=== PATIENT | female | born 1945 | race Caucasian/White ===

== ENCOUNTER 2019-12-27 12:56 | Outpatient (CLI) | payer MEDICARE, SELFPAY ==
[2019-12-27 13:33] LABS: Basophils Percent Auto 0.5 % (0.2-1.2); Eosinophils Absolute Auto 0.2 K/mm3 (0-0.3); Hematocrit 35.5 % (37.0-47.0); Hemoglobin 11.6 g/dL (12.0-15.0); Immature Granulocyte Absolute 0.02 K/mm3 (0.00-0.031); Immature Granulocyte Percent A 0.2 % (0-0.5); Lymphocytes Absolute Auto 3.29 K/mm3 (0.9-3.2); Lymphocytes Percent Auto 40.5 % (18.3-44.2); Mean Corpuscular HGB Conc 32.7 g/dl (32-36); Mean Corpuscular Volume 91.7 fl (80-100); Mean Platelet Volume 10.5 fl (7.4-10.4); Monocytes Absolute Auto 0.6 K/mm3 (0.1-0.6); Monocytes Percent Auto 7.6 % (2.6-8.5); Neutrophils Percent Auto 49.2 % (45.5-73.1); Platelet Count Result 289 k/mm3 (150-375); Red Blood Count 3.87 M/mm3 (4.2-5.4); Red Cell Distribution Width 13.7 % (11.5-14.5); White Blood Count 8.1 K/mm3 (4.5-10.0)
== END 2019-12-27 12:57 | disposition home or self-care (01) ==
PROVIDERS: PCP Internal Medicine; Visit Provider Internal Medicine
DX: R53.83 Other fatigue (principal)
CPT/HCPCS: 36415; 85025

== ENCOUNTER 2020-06-25 06:50 | Outpatient (CLI) | payer MEDICARE, SELFPAY ==
[2020-06-25 07:53] LABS: Add Urine Microscopic? NO; Appearance Urine Clear (Clear); Bilirubin Urine Negative (Negative); Blood Urine Negative (Negative); Color Urine Straw (Yellow); Glucose Urine UA Negative (Negative); Ketones Urine Negative (Negative); Leukocyte Esterase Ur Negative LEU/UL (Negative); Nitrate Urine Negative (Negative); Protein Urine Negative (Negative); Specific Grav Ur 1.011 (1.001-1.035); Urobilinogen Urine Negative mg/dL (<2.0)
[2020-06-25 07:56] LABS: Alanine Aminotransferase 16 U/L (4-35); Albumin Level 4.3 g/dL (3.5-5.1); Alkaline Phosphatase 54 U/L (38-126); Anion Gap 10.1 mmol/L (7-16); Aspartate Amino Transferase 24 U/L (14-36); Bilirubin,Total 0.2 mg/dL (0.2-1.3); Blood Urea Nitrogen 14 mg/dL (7-17); Carbon Dioxide 30 mmol/L (22-30); Chloride 102 mmol/L (98-107); Cholesterol 180 mg/dL (0-200); Estimated Glomerular Filt Rate > 60; Glucose 145 mg/dL (65-105); HDL Direct 82 mg/dL; Potassium 4.1 mmol/L (3.4-5.0); Sodium 138 mmol/L (137-145); Triglycerides 56 mg/dL (<150)
[2020-06-25 08:05] LABS: Hemoglobin A1C 6.2 % (<5.7)
[2020-06-25 08:06] LABS: LDL Cholesterol Direct 76 mg/dL
== END 2020-06-25 06:51 | disposition home or self-care (01) ==
PROVIDERS: PCP Internal Medicine; Referring Provider Nurse Practitioner; Visit Provider Internal Medicine
DX: E78.5 Hyperlipidemia, unspecified (principal); E11.49 Type 2 diabetes mellitus with other diabetic neurological complication; I10 Essential (primary) hypertension; R35.0 Frequency of micturition
CPT/HCPCS: 36415; 80053; 80061; 81003; 83036

== ENCOUNTER 2020-09-13 14:08 | Outpatient (CLI) | payer MEDICARE, SELFPAY ==
--- NOTE | ~2020-09-13 | MM_ITS ---
EXAMINATION: MM screening [facility] BI w christiano HISTORY: Screening mammogram TECHNIQUE: Craniocaudal and mediolateral oblique 3-D tomosynthesis images were obtained and synthetic 2-D images were generated. CAD analysis was submitted and interpreted. COMPARISON: 09/11/2019, 09/06/2018, 08/20/2017 BREAST PARENCHYMAL COMPOSITION: There are scattered areas of fibroglandular density. FINDINGS: Scattered benign-appearing calcifications are present. There is no evidence of suspicious m ass, calcification, or architectural distortion to suggest malignancy in either breast. There has bee n no suspicious interval change. IMPRESSION: 1. No mammographic evidence of malignancy. 2. Recommend routine screening mammography in one year. BI-RADS Category 2: Benign finding(s). Reviewed, dictated and finalized at location A.
--- NOTE | ~2020-09-13 | US_ITS ---
EXAMINATION: US thyroid DATE: 09/13/2020 15:03 INDICATION: Nontoxic multinodular goiter. TECHNIQUE: Multiple ultrasound images of the thyroid were obtained. COMPARISON: Ultrasound 09/07/2019 FINDINGS: The right thyroid lobe measures 4.9 x 2.1 x 1.2 cm. The left thyroid lobe measures 3.7 x 1.2 x 1.0 c m. In the right thyroid lobe, there is a 7 mm mixed cystic and solid, hypoechoic, bbddy-[id number]-binb no dule with smooth margin without echogenic foci (TI-RADS TR3). In the right thyroid lobe, there is a 5 mm solid, hypoechoic, mipet-hoef-qevu nodule with peripheral calcifications and smooth margin (TR4). In the right thyroid lobe, there is a 9 mm mixed cystic and solid, hypoechoic, tmixe-upnk-yhou nodul e smooth margins without echogenic foci (TR3). IMPRESSION: 1. Small thyroid nodules, likely not clinically significant. No follow-up is needed. Reviewed, dictated and finalized at location A. IMPRESSION: 1. Small thyroid nodules, likely not clinically significant. No follow-up is ne eded.
--- NOTE | ~2020-09-13 | US_ITS ---
EXAMINATION: US carotid duplex BI DATE: 09/13/2020 15:05 INDICATION: Occlusion and stenosis of bilateral carotid arteries. TECHNIQUE: Grayscale, color Doppler, and pulsed Doppler images of the cervical carotid arteries were obtained. The degree of vessel stenosis is placed in one of the following categories: normal, <50%, 5 0-69%, >=70% but less than near-occlusion, near-occlusion, or total occlusion. Note that percent sten osis relative to normal distal artery lumen diameter is indirectly measured from velocity measurement s as described by Camron, et al. Radiology 2003; 229:340-346. COMPARISON: Ultrasound 09/11/2019 FINDINGS: RIGHT: The right common carotid artery (CCA) peak systolic velocity (PSV) is 93 cm/s. The right internal car otid artery (ICA) PSV is 52 cm/s. The right ICA end-diastolic velocity (EDV) is 10 cm/s. The right IC A/CCA PSV ratio is 0.6. Grayscale and color Doppler images yield an estimate of <50% diameter reducti on from plaque in the ICA. There is antegrade flow in the right vertebral artery. LEFT: The left CCA PSV is 93 cm/s. The left ICA PSV is 55 cm/s. The left ICA EDV is 10 cm/s. The left ICA/C CA PSV ratio is 0.6. Grayscale and color Doppler images yield an estimate of <50% diameter reduction from plaque in the ICA. There is antegrade flow in the left vertebral artery. IMPRESSION: 1. <50% stenosis in the right internal carotid artery. 2. <50% stenosis in the left internal carotid artery. Reviewed, dictated and finalized at location A.
== END 2020-09-13 14:09 | disposition home or self-care (01) ==
PROVIDERS: PCP Internal Medicine; Visit Provider Nurse Practitioner
DX: Z12.31 Encounter for screening mammogram for malignant neoplasm of breast (principal); E04.2 Nontoxic multinodular goiter; I65.23 Occlusion and stenosis of bilateral carotid arteries
CPT/HCPCS: 76536; 77063; 77067; 93880

== ENCOUNTER 2020-10-26 15:53 | Inpatient (IN) | payer MEDICARE, SELFPAY ==
[2020-10-26] VITALS (12 sets, daily range): BP systolic 118–154; BP diastolic 39–56; PULSE 40–56; RESP 11–20; TEMP 36.6; O2SAT 96–100; BMI 28.5
--- NOTE | ~2020-10-26 | XR_ITS ---
EXAMINATION: XR chest 1V portable INDICATION: Chest pain and shortness of breath TECHNIQUE: Portable AP chest at 1743 hours COMPARISON: 03/17/2018 FINDINGS: There are minimal airspace opacities of the lung bases and right midlung zone. No pleural e ffusion or pneumothorax is identified. The cardiomediastinal silhouette is normal. Changes of right t otal shoulder arthroplasty are noted. There is partially imaged stabilization hardware in the lower c ervical spine. IMPRESSION: 1. Minimal airspace opacities of the lung bases and right midlung zone, consistent with atelectasis v ersus pneumonia. Reviewed, dictated and finalized at location A. OR NEWSPAPER IMPRESSION: 1. Minimal airspace opacities of the lung bases and right midlung zone, consist ent with atelectasis versus pneumonia.
--- NOTE | ~2020-10-26 | CT_ITS ---
EXAMINATION: CT brain wo con INDICATION: Weakness COMPARISON: None TECHNIQUE: Standard unenhanced head CT. The dose-length product (DLP) was 605.33 mGy-cm. The mA was a djusted according to patient size. Iterative reconstruction technique was employed. FINDINGS: There is no acute intraparenchymal hemorrhage. No evidence of mass lesion. No evidence of a cute infarction. There is mild periventricular and subcortical hypodensity probably related to small vessel ischemic disease. There is mild prominence of the sulci and ventricles related to cerebral atr ophy. Intracranial calcified cerebral atherosclerosis is noted. There are no extra-axial collections. There is no mass effect or midline shift. Changes in the globes are likely from ocular lens surgery. The visualized sinuses and mastoid air cells are well aerated. IMPRESSION: 1. No acute intracranial abnormality. 2. Age related findings. Reviewed, dictated and finalized at location A. TIME PARAMEDIC
--- NOTE | ~2020-10-26 | CT_ITS ---
EXAMINATION: CTA chest PE protocol DATE: 10/26/2020 18:12 INDICATION: Shortness of breath and chest pain TECHNIQUE: Computed tomography angiography (CTA) of the chest was performed with 100 mL Omnipaque-350 intravenous contrast timed to evaluate the pulmonary arteries. Coronal maximum intensity projection 3D-reconstructions were created by the technologist. The dose-length product (DLP) was 490.19 mGy-cm. Automated exposure control and iterative reconstruction technique were employed. COMPARISON: 09/27/2017 FINDINGS: The pulmonary arteries are well-opacified. No pulmonary embolism is identified. There are m inimal airspace opacities of the lower lung zones. No pleural effusion or pneumothorax is identified. Stable nodules of the right upper lobe measure up to 6 mm. Cardiomegaly is noted. There are no patho logically enlarged thoracic lymph nodes. Changes of right total shoulder arthroplasty are noted. In a ddition there are changes of anterior fusion in the lower cervical spine. The gallbladder is surgical ly absent. There is mild thoracic spondylosis IMPRESSION: 1. No pulmonary embolism. 2. Mild atelectasis. Reviewed, dictated and finalized at location A. IZATION ENGINEER
--- NOTE | ~2020-10-26 | XR_ITS ---
EXAMINATION: XR chest 1V portable DATE: 10/28/2020 13:18 INDICATION: Pacer placement. TECHNIQUE: A single frontal view of the chest was obtained. COMPARISON: Chest single view 10/26/2020, chest CT 10/26/2020, 09/27/2017 FINDINGS: There are chronic nodules in right midlung zone, likely chronic infection. No pleural effus ion or pneumothorax. Cardiomegaly is noted. There is a left chest wall pacer with leads in the right atrium and right ventricle. Surgical clips in the right upper quadrant are likely from cholecystectom y. There are changes of anterior fusion procedure in cervical spine. There is a right shoulder arthro plasty. IMPRESSION: 1. Chronic nodules in right midlung zone, likely chronic infection. 2. Cardiomegaly. Reviewed, dictated and finalized at location B. RECONDITIONER
--- NOTE | ~2020-10-26 | XR_ITS ---
EXAMINATION: XR chest 2V DATE: 10/29/2020 08:09 INDICATION: Pacer placement. TECHNIQUE: Frontal and lateral views of the chest were obtained. COMPARISON: Chest single view 10/28/2020, chest CT 10/26/2020 FINDINGS: There are nodules in right midlung zone. No pleural effusion or pneumothorax. The heart siz e is normal. There is a left chest wall pacer with leads in the right atrium and right ventricle. The re is a right shoulder arthroplasty. Surgical clips in the right upper quadrant are likely from sal cystectomy. IMPRESSION: 1. Chronic nodules in right midlung zone, likely chronic infection. Reviewed, dictated and finalized at location B. LE AND GRANITE POLISHER
--- NOTE | 2020-10-26 16:14 | ECG_ITS ---
Measurements Intervals [place] Rate: 43 P: 35 NC: 153 QRS: 21 QRSD: 98 T: 38 QT: 467 QTc: 399 Interpretive Statements SINUS RHYTHM WITH NON-CONDUCTED ATRIAL PREMATURE COMPLEXES ATRIAL AND JUNCTIONAL PREMATURE COMPLEXES INCOMPLETE RIGHT BUNDLE BRANCH BLOCK ABNORMAL ECG Electronically Signed On 10-26-2020 16:36:28 CHIROPRACTIC NEUROLOGIST by Bobby Jacques D.O.
--- NOTE | 2020-10-26 16:29 | ED.WEAKNESS ---
HPI - Weakness General Chief complaint: Weakness Stated complaint: my heart Time Seen by Provider: 10/26/20 16:29 Source: patient Mode of arrival: ambulatory Limitations: no limitations History of Present Illness HPI Narrative: Patient is a 75-year-old female with a history of hypertension, type 2 diabetes who presents for evaluation of chest pain, shortness of breath, weakness. Patient initially had presented to an urgent care for evaluation of her symptoms, thought that she may be had a possible Covid exposure causing her symptoms, patient denied any fever, rhinorrhea, congestion, loss of sense of taste or smell. Patient's chest pain has been present over the past 72 hours. No severe chest pain. No current shortness of breath. She reports shortness of breath mostly with exertion. She reports some intermittent lightheadedness, dizziness and feeling generally weak without any focal numbness or weakness. No history of stroke. Patient states she has a history of polio which severely affected her left lower extremity. No worsening gait. No syncope. Patient has been compliant with her antihypertensives. Related Data Home Medications Medication Instructions Recorded Confirmed calcium carbonate 600 mg calcium 600 mg PO DAILY 09/26/19 (1,500 mg) tablet denosumab 60 mg/mL subcutaneous 60 mg SUB-Q [id number] 09/26/19 syringe lutein 6 mg capsule 6 mg PO DAILY 09/26/19 Allergies Allergy/AdvReac Type Severity Reaction Status Date / Time acetaminophen Allergy Intermediate Nausea and Verified 10/26/20 16:47 Vomiting hydrocodone Allergy Intermediate Nausea and Verified 10/26/20 16:47 Vomiting Review of Systems Review of Systems: Narrative: CONSTITUTIONAL: Denies fever, chills, or sweats. EYES: Denies visual changes ENT: Denies rhinorrhea, congestion, sore throat, or otalgia. CARDIOVASCULAR: Reports chest pain, heart fluttering, reports mild right lower extremity edema RESPIRATORY: Denies cough, reports shortness of breath with exertion GASTROINTESTINAL: Denies abdominal pain, nausea, vomiting, or diarrhea. GENITOURINARY: Denies dysuria or hematuria. SKIN: Denies rash or itching. MUSCULOSKELETAL: Denies back pain, joint pain, or myalgia. NEUROLOGIC: Denies headache, numbness, reports feeling diffusely weak PMFSH Past Medical History Medical History (Updated 10/26/20 @ 20:31 by Cora Henriquez MD) Bilateral low back pain with right-sided sciatica Carotid stenosis, bilateral Cerebrovascular disease, unspecified Cerumen impaction Chronic left shoulder pain Chronic right shoulder pain Diabetes mellitus type 2 with neurological manifestations Encounter for screening mammogram for malignant neoplasm of breast Essential (primary) hypertension Facial pressure Gastro-esophageal reflux disease without esophagitis Headache Hormone replacement therapy (postmenopausal) Hyperlipidemia LDL goal <70 Lung nodule Nontoxic multinodular goiter Osteoporosis Polyosteoarthritis, unspecified Type 2 diabetes mellitus with hyperglycemia Family History Family History Mother Hypertension Family history of diabetes mellitus in first degree relative Family history of chronic obstructive pulmonary disease Patient's mother is Diabetes mellitus Sibling Hypertension Diabetes mellitus Father Family history of malignant neoplasm Family history of coronary artery disease Social History Social History Smoking status: Never smoker Alcohol intake: never Gender identity (if verbalized by the patient): Female Exam Narrative: Exam Narrative: GENERAL: Awake, alert, conversant HEAD: Normocephalic, atraumatic. EYES: PERRLA and EOMI. ENT: Nares clear, no rhinorrhea or epistaxis. Mucous membranes moist. NECK: Supple. CHEST: No respiratory distress, breathing even and non labored, no crackles, no wheezi
[2020-10-26 16:30] LABS: Basophils Percent Auto 0.3 % (0.2-1.2); Eosinophils Absolute Auto 0.1 K/mm3 (0-0.3); Eosinophils Percent Auto 1.3 % (0-4.4); Hematocrit 36.2 % (37.0-47.0); Hemoglobin 11.8 g/dL (12.0-15.0); Immature Granulocyte Absolute 0.03 K/mm3 (0.00-0.031); Immature Granulocyte Percent A 0.3 % (0-0.5); Lymphocytes Absolute Auto 3.21 K/mm3 (0.9-3.2); Lymphocytes Percent Auto 31.5 % (18.3-44.2); Mean Corpuscular HGB Conc 32.6 g/dl (32-36); Mean Corpuscular Hemoglobin 29.9 pg (26-34); Mean Corpuscular Volume 91.9 fl (80-100); Monocytes Absolute Auto 0.6 K/mm3 (0.1-0.6); Monocytes Percent Auto 6.1 % (2.6-8.5); Neutrophils Absolute Auto 6.2 K/mm3 (1.3-6.7); Neutrophils Percent Auto 60.5 % (45.5-73.1); Platelet Count Result 278 k/mm3 (150-375); Red Blood Count 3.94 M/mm3 (4.2-5.4); Red Cell Distribution Width 13.6 % (11.5-14.5); White Blood Count 10.2 K/mm3 (4.5-10.0)
[2020-10-26 16:41] LABS: Prothrombin Time 13.5 Seconds (11.1-14.7)
[2020-10-26 16:42] LABS: Partial Thromboplastin Time 27.5 SECONDS (22.3-36.8)
[2020-10-26 16:47] LABS: Alanine Aminotransferase 19 U/L (4-35); Albumin Level 4.2 g/dL (3.5-5.1); Alkaline Phosphatase 65 U/L (38-126); Anion Gap 8 mmol/L (8-16); Aspartate Amino Transferase 25 U/L (14-36); Bilirubin,Total 0.5 mg/dL (0.2-1.3); Blood Urea Nitrogen 11 mg/dL (7-17); Calcium 9.8 mg/dL (8.4-10.2); Carbon Dioxide 27 mmol/L (22-30); Chloride 105 mmol/L (98-107); Estimated Glomerular Filt Rate > 60; Glucose 151 mg/dL (65-105); Sodium 140 mmol/L (137-145)
[2020-10-26 16:58] LABS: Troponin I < 0.012 ng/mL (0.000-0.034)
[2020-10-26 17:25] LABS: D Dimer 0.53 ug/mL (<0.48)
[2020-10-26 17:40] LABS: NT Pro B Type Natriuretic Pept 1480 PG/ML (5-100)
[2020-10-26 20:20] LABS: Troponin I < 0.012 ng/mL (0.000-0.034)
--- NOTE | 2020-10-26 22:05 | ADMGEN ---
This patient, Linh Mc, was admitted to [facility]. Patient/family oriented to hospital policies and general routines including ID bracelet, bed and alarms, visiting hours, pain management, procedures, bathroom and other care routines, personal items, smoking policy, room service/diet, and visiting hours. Information on how to activate the Rapid Response Team has been discussed. Patient/Family are encouraged to report perceived risks to care and to ask questions if they do not understand what they are told or what they should do.
--- NOTE | 2020-10-26 22:25 | PM.IMHP ---
H&P: HPI History of Present Illness Date/Time: 10/26/20 22:25 Chief complaint: symptomatic bradycardia Narrative: This is a pleasant 75 year old Caucsian diabetic female with known HTN presented to the hospital after she went to Urgent care today to get tested for COVID-19. She has had 3 days of intermittent sporadic chest pain and believed that she might have COVID-19 as she also had associated diarrhea and generalized weakness. She denies any fever, chills, shortness of breath, abdominal pain, dysuria, hematuria, or rectal bleeding. She denies any focal neurological symptoms or passing out. She was tested for COVID-19 at the urgent care today and was negative. She has no previous history of CAD+ and has never had a stress test. In the ER tonight the patient was evaluated and she was found to have a sustained heart rate in the 30s and low 40s. She is not on a beta carrie. Chest CTA was negative for acute pulmonary embolism. EKG demonstrated a sinus bradycardia with atrial and junctional premature complexes. Cardiology was consulted by ER provider and we have been asked to admit the patient to the hospital and they will evalute her. On my encounter with her she is asymptomatic. Review of Systems Review of Systems: All systems reviewed & are unremarkable except as noted in HPI and below PMFSH Past Medical History Medical History Bilateral low back pain with right-sided sciatica Carotid stenosis, bilateral Cerebrovascular disease, unspecified Cerumen impaction Chronic left shoulder pain Chronic right shoulder pain Diabetes mellitus type 2 with neurological manifestations Encounter for screening mammogram for malignant neoplasm of breast Essential (primary) hypertension Facial pressure Gastro-esophageal reflux disease without esophagitis Headache Hormone replacement therapy (postmenopausal) Hyperlipidemia LDL goal <70 Lung nodule Nontoxic multinodular goiter Osteoporosis Polyosteoarthritis, unspecified Type 2 diabetes mellitus with hyperglycemia Family History Family History Mother Hypertension Family history of diabetes mellitus in first degree relative Family history of chronic obstructive pulmonary disease Patient's mother is Diabetes mellitus Sibling Hypertension Diabetes mellitus Father Family history of malignant neoplasm Family history of coronary artery disease Social History Social History Smoking status: Never smoker Alcohol intake: never Substance use: never Substance use type: does not use Gender identity (if verbalized by the patient): Female Spiritual care concerns: No Meds Home Medications and Allergies Home Medications Medication Instructions Recorded Confirmed Type calcium carbonate 600 mg calcium 1,200 mg PO DAILY 09/26/19 10/26/20 History (1,500 mg) tablet lutein 6 mg capsule 6 mg PO DAILY 09/26/19 10/26/20 History tramadol 50 mg tablet 50 mg PO Q8H PRN #90 tablet 10/30/19 10/26/20 Rx sitagliptin 50 mg tablet 50 mg PO DAILY #30 tablet 08/23/20 10/26/20 Rx amlodipine 10 mg PO HS 10/26/20 10/26/20 History esomeprazole magnesium [Nexium] 40 mg PO DAILY 10/26/20 10/26/20 History estradiol 1 patch TRANSDERMAL 2XW 10/26/20 10/26/20 History lifitegrast [Xiidra] 1 drp OPHTHALMIC (EYE) Q12H 10/26/20 10/26/20 History losartan 100 mg PO DAILY 10/26/20 10/26/20 History metformin 2,000 mg PO BID 10/26/20 10/26/20 History Allergies Allergy/AdvReac Type Severity Reaction Status Date / Time acetaminophen Allergy Intermediate Nausea and Verified 10/26/20 16:47 Vomiting hydrocodone Allergy Intermediate Nausea and Verified 10/26/20 16:47 Vomiting Vital Signs Vital Signs - 24 hr 10/26/20 16:14 10/26/20 16:34 10/26/20 16:45 Temperature 36.6 C Pulse Rate 56 L 45 L 46 L Respiratory Rate 16 18 20 Bl
[2020-10-26 22:30] LABS: Troponin I < 0.012 ng/mL (0.000-0.034)
--- NOTE | 2020-10-26 23:38 | PHAR ---
PHARMACY VERIFIED HOME MED: *USE FROM HOME* Lifitegrast [Xiidra] 5 % Dropperette INSTILL 1 DROP IN EACH EYE EVERY 12 HOURS
[2020-10-27] VITALS (15 sets, daily range): BP systolic 104–156; BP diastolic 31–56; PULSE 36–51; RESP 12–18; TEMP 36.1–37.1; O2SAT 95–100
--- NOTE | 2020-10-27 | ECHO_ITS ---
Patient Info Name: Linh Mc Age: 75 years : 1945 Gender: Female Ht: 57 in Wt: 131 lbs BSA: 1.57 m2 HR: 42 bpm BP: 139 / 56 mmHg Heart Rhythm: Sinus Rhythm, Bradycardia Technical Quality: Good Exam Date: 10/27/2020 10:29 AM [facility] Patient Status: Inpatient Admit Date: 10/26/2020 Staff Ordering Physician: Baljeet Alvarez MD Side Boss: Rhiannon Jones RDCS Attending Provider: Lukas Steward MD Referring Physician: Kim GOLDSMITH; Exam Type: CA echo doppler color flow Study Info Indications - CHEST PAIN Complete two-dimensional, color flow and Doppler transthoracic echocardiogram is performed. Summary 1. Complete two-dimensional, color flow and Doppler transthoracic echocardiogram is performed. 2. Left ventricular chamber size, wall thickness, systolic are normal with no regional wall motion abnormalities with an estimated ejection fraction of 65-70%. Grade 2 diastolic dysfunction is present. 3. Right ventricular chamber dimension is mildly enlarged with normal systolic function. 4. Left atrial chamber dimension is moderately enlarged. 5. Right atrial chamber dimension is mildly enlarged. 6. There is mild mitral valve regurgitation. 7. There is mild tricuspid valve regurgitation. 8. Moderate pulmonary hypertension, estimated pulmonary arterial systolic pressure is 64 mmHg. 9. Sinus bradycardia. Left Ventricle Left ventricular chamber dimension is normal. Left ventricular systolic function is normal, estimated at 65-70%. There is no increased left ventricular wall thickness. Left ventricular septal wall motion is normal. The left ventricular diastolic function is grade II diastolic dysfunction. Left ventricular chamber size, wall thickness, systolic are normal with no regional wall motion abnormalities with an estimated ejection fraction of 65-70%. Grade 2 diastolic dysfunction is present. Right Ventricle Right ventricular chamber dimension is mildly enlarged with normal systolic function. Right ventricular systolic function is normal. Left Atria Left atrial chamber dimension is moderately enlarged. Right Atria Right atrial chamber dimension is mildly enlarged. Aortic Valve The aortic valve is trileaflet. There is mild aortic valve sclerosis. There is no aortic valve stenosis. There is no aortic valve regurgitation. Pulmonic Valve The pulmonic valve is normal. There is no pulmonic valve stenosis. There is no pulmonic regurgitation. Mitral Valve The mitral valve has normal leaflets. There is no mitral valve stenosis. There is mild mitral valve regurgitation. Tricuspid Valve The tricuspid valve leaflets are normal. There is no significant tricuspid valve stenosis. There is mild tricuspid valve regurgitation. Moderate pulmonary hypertension, estimated pulmonary arterial systolic pressure is 64 mmHg. Pericardium/Pleural The pericardium appears normal. There is no pericardial effusion. Inferior Vena Cava Normal inferior vena cava with >50% collapse upon inspiration consistent with Empty right atrial pressure, 10 mmHg. Aorta The aortic root size at the sinus of Valsalva is normal. The prox ascending aorta size is normal. Left Ventricular Outflow Tract Name Value Normal
--- NOTE | 2020-10-27 08:55 | PC.NURSE ---
DR. PHILLIPS HERE TO SEE PT IN CONSULTATION FOR CARDIOLOGY. ECHO ORDERED. DISCUSSED NEED FOR PPM. PT. UNSURE AT THIS TIME WHETHER SHE WANTS TO PROCEED. WILL CONTINUE TO MONITOR.
--- NOTE | 2020-10-27 09:22 | PM.CNCAR ---
Assessment and Plan Additional Plan This is a 75-year-old lady presenting with a variety of mostly noncardiac symptoms. Regarding her AV block and bradycardia she does have some MARQUEZ with no other reason to have that so that could certainly be a symptom of the bradycardia. Fortunately she has not had any history of syncope. She does report some symptoms of feeling more short of breath when she lies down flat and so the possibility of LV dysfunction is of some concern. Previous to this she was a very active lady who exercise regularly as mentioned above. My recommendation was to obtain an echocardiogram/Doppler today and then to consider device implantation to be indicated. The patient is not this agreeable with this but indicates she is not prepared to consent for device implantation today or during this hospitalization. She wishes to have the echocardiogram done and then go home and discuss this with her and let me know her decision in the future. Since she is not having syncope this is not an unreasonable decision. I will leave further recommendations as appropriate after I review her ultrasound results later today. Baljeet Alvarez MD [facility] History of Present Illness History of Present Illness Consult date/time: Date of service: 10/27/20 09:22 Reason For Visit: symptomatic bradycardia Narrative: This is a 75-year-old lady who I am seeing at the request of the hospitalist this morning because of a Colten arrhythmias. Patient has no previous history of significant cardiac problems other than she was told by a previous physician she had a minor cardiac valve insufficiency that did not require any further treatment. She went to [facility] yesterday with a variety of complaints but the principal reason for going there was to get COVID tested. She was concerned that she might have been exposed to the aragon virus in wished to have testing done. She was tested and was negative. While she was there she was reporting some symptoms of some mid epigastric abdominal pain off and on for a couple of weeks or so she also has some symptoms of weakness and exertional fatigue that started something like several months ago. She does not have any complaints of chest pain she does not have any complaints of syncope or near-syncope. She has generally been a fairly active lady most of her adult life and has exercise regularly for fitness but recently has had to curtail most of that because of the pandemic and also because she has some arthritic problems including back and arthritic pain. Once again she has never had a symptom of syncope or near-syncope. In the urgent care center was noted that she was bradycardic she was sent to the emergency room. Her electrocardiogram there showed sinus rhythm with atrial bigeminy with nonconducted APCs resulting in a heart rate in the 30s. She was therefore admitted to the hospital and is on telemetry. Interestingly on telemetry she has a variety of arrhythmias including as I mentioned above a lot of nonconducted APCs sometimes in a bigeminal pattern she also has some examples of higher grade AV node dysfunction with sinus rhythm with nonconducted P waves and in some a escape beats there was 1 rhythm strip but short time ago this morning where there were 2 escape beats consecutively. Had a long discussion with the patient about the fact that she appears to have AV node dysfunction including some examples of high-grade AV block and fortunately has not yet had a syncopal event. She is not taking any medications that would affect AV node physiology. For hypertension she takes amlodipine and losartan. The patient is otherwise active lives at home with her sadly and tragically her son who was at a gentleman in his 50s committed suicide recently and she is under extreme stress and breathing that loss. He was not and did not have children. Review of Systems Constitutional: Constitutional: Reports fa
--- NOTE | 2020-10-27 09:50 | PC.NURSE ---
PT. STATES AFTER TALKING W/ ON PHONE WOULD LIKE TO PROCEED WITH PPM INSERTION WHILE HERE PT. DR. PHILLIPS NOTIFIED. WILL EVALUATE SCHEDULE.
--- NOTE | 2020-10-27 10:25 | PC.NURSE ---
ECHOCARDIOGRAM IN PROGRESS AT BEDSIDE.
[2020-10-27 10:32] LABS: Glucose Point of Care 140 (65-105)
--- NOTE | 2020-10-27 12:30 | PC.NURSE ---
DR. PHILLIPS UNABLE TO PLACE PPM TODAY. DR. QUARLES IN TO SEE PT. BEDSIDE TO EVALUATE FOR PPM. SHE CAN PLACE PPM TOMORROW MORNING 10/28/2020.
[2020-10-27] MEDS: LOSARTAN POTASSIUM 100 MG TABLET PO (13:08)
[2020-10-27] MEDS: PANTOPRAZOLE 40 MG TABLET PO (13:08)
[2020-10-27 13:20] LABS: Glucose Point of Care 128 (65-105)
--- NOTE | 2020-10-27 15:45 | PC.NURSE ---
PT. MOVED FROM OIL WELL PUMPER 4 TO OIL WELL PUMPER 3 TO BETTER ACCOMODATE BATHROOM NEEDS. ADMITTING NOTIFIED.
--- NOTE | 2020-10-27 16:45 | PM.IMPN ---
Progress Note: A&P Assessment and Plan (1) Chest pain: Qualifiers: Chest pain type: unspecified Qualified Code(s): R07.9 - Chest pain, unspecified Code(s): R07.9 - Chest pain, unspecified Status: Acute Assessment and Plan: Patient with bradycardia most likely the etiology of her chest pain from demand ischemia. Patient already on PPI so doubt GERD. PM being planned. Appreciate Cardiology input. (2) Bradycardia: Code(s): R00.1 - Bradycardia, unspecified Status: Acute Assessment and Plan: Patient with sinus bradycardia. TSH normal. As above. Appreciate Cardiology input. (3) Normocytic anemia: Code(s): D64.9 - Anemia, unspecified Status: Acute Assessment and Plan: Hgb 11.8 on admission. This is unchanged from December so suspect more of a chronic anemia. No evidence of acute blood loss. Monitor H&H. Check B12 and iron studies. (4) Essential (primary) hypertension: Code(s): I10 - Essential (primary) hypertension Status: Chronic Assessment and Plan: Patient's blood pressure was reviewed on 10/27 Blood pressure elevated at times. Will continue current medications with losartan. Resume Norvasc once PM in place. (5) Diabetes mellitus type 2 with neurological manifestations: Code(s): E11.49 - Type 2 diabetes mellitus with other diabetic neurological complication Status: Chronic Assessment and Plan: A1c 6.2 in June. The patient's blood glucose was reviewed on 10/27 Glucose remains well controlled. Continue AccuCheks covering with sliding scale. Hypoglycemia protocol available as needed. Continue current medications with metformin. (6) Pulmonary hypertension: Code(s): I27.20 - Pulmonary hypertension, unspecified Status: Acute Assessment and Plan: Echo showing moderate pulmonary hypertension with estimated pulmonary arterial systolic pressure of 64 mmHg. No hx of CHRISTIANA. She states she was tested when at [place] and was negative 2-3 years ago. Check apnea link. (7) IBS (irritable bowel syndrome): Code(s): K58.9 - Irritable bowel syndrome without diarrhea Status: Acute Assessment and Plan: Patient having liquid stools today. Discussed the benefits of increasing fiber in her diet. Check for celiac disease (8) DVT prophylaxis: Code(s): Z29.9 - Encounter for prophylactic measures, unspecified Status: Acute Assessment and Plan: SCDs given plans for PM in the morning. Subjective Date/time seen: 10/27/20 16:45 Interval history: Date of service 10/27 75yo female with DM, HTN and hx of polio here for chest pain and found to have bradycardia. She had 2 large diarrheal stools earlier today. She has IBS and her symptoms have worsened over the past year. No melana or hematochezia. She had a colonoscopy in April which was essentailly normal. She has this chest panchito that is almost constant worse with activity and lying flat. No radiation to the pain. It is associated with SOB. Not pleuritic. No n/v. Exam Narrative: Exam Narrative: AF 98.7 152/50 39 12 96% ra Gen - NARD lying semirecumbent in bed Chest - CTA bilaterally, nml RR CV - bradycardic Abd - Soft, NT/ND, Positive BS Ext - No pedal edema; RLE>>LLE in size Neuro - Alert and oriented. Nonfocal exam. Psych - Nml mood and affect Skin - Warm and dry Objective Data Vital Signs Vital Signs: Vital Signs - 24 hr 10/26/20 16:46 10/26/20 17:00 10/26/20 17:01 Temperature Pulse Rate 43 L 41 L 42 L Respiratory Rate 18 11 L 15 Blood Pressure 154/49 H 137/50 L Pulse Oximetry 10/26/20 19:44 10/26/20 21:22 10/26/20 21:30 Temperature Pulse Rate 41 L 40 L 41 L Respiratory Rate 18 18 14 Blood Pressure 148/39 H 118/40 L 140/51 L Pulse Oximetry 96 99 97 10/26/20 21:47 10/26/20 22:00 10/26/20 23:59 Temperature 98 F Pulse Rate 48 L 40 L 42 L Re
[2020-10-27] MEDS: metFORMIN HCL 500 MG TABLET 1000 MG PO (18:25)
[2020-10-27 18:30] LABS: Glucose Point of Care 163 (65-105)
[2020-10-27 21:26] LABS: Glucose Point of Care 124 (65-105)
[2020-10-28] VITALS (20 sets, daily range): BP systolic 115–150; BP diastolic 56–94; PULSE 43–81; RESP 13–18; TEMP 36.2–37; O2SAT 95–100
[2020-10-28 05:46] LABS: Basophils Percent Auto 0.4 % (0.2-1.2); Eosinophils Absolute Auto 0.2 K/mm3 (0-0.3); Eosinophils Percent Auto 2.1 % (0-4.4); Hematocrit 33.7 % (37.0-47.0); Hemoglobin 11.1 g/dL (12.0-15.0); Immature Granulocyte Absolute 0.02 K/mm3 (0.00-0.031); Immature Granulocyte Percent A 0.3 % (0-0.5); Lymphocytes Absolute Auto 2.98 K/mm3 (0.9-3.2); Lymphocytes Percent Auto 37.5 % (18.3-44.2); Mean Corpuscular HGB Conc 32.9 g/dl (32-36); Mean Corpuscular Hemoglobin 30.2 pg (26-34); Mean Corpuscular Volume 91.6 fl (80-100); Monocytes Absolute Auto 0.6 K/mm3 (0.1-0.6); Monocytes Percent Auto 7.1 % (2.6-8.5); Neutrophils Absolute Auto 4.2 K/mm3 (1.3-6.7); Neutrophils Percent Auto 52.6 % (45.5-73.1); Platelet Count Result 289 k/mm3 (150-375); Red Blood Count 3.68 M/mm3 (4.2-5.4); Red Cell Distribution Width 13.6 % (11.5-14.5); White Blood Count 7.9 K/mm3 (4.5-10.0)
[2020-10-28 06:05] LABS: Anion Gap 5 mmol/L (8-16); Blood Urea Nitrogen 16 mg/dL (7-17); Calcium 9.5 mg/dL (8.4-10.2); Carbon Dioxide 27 mmol/L (22-30); Chloride 106 mmol/L (98-107); Estimated Glomerular Filt Rate > 60; Glucose 128 mg/dL (65-105); Potassium 4.1 mmol/L (3.4-5.0); Sodium 138 mmol/L (137-145)
[2020-10-28 06:24] LABS: Iron 31 ug/dL (37-170)
[2020-10-28 06:34] LABS: Percent Iron Saturation 8 % (20-50)
[2020-10-28 07:02] LABS: Ferritin 7.01 ng/mL (11.1-264)
[2020-10-28 07:10] LABS: Folic Acid 10.7 ng/mL (2.76->20)
[2020-10-28 08:03] LABS: Glucose Point of Care 134 (65-105)
[2020-10-28] MEDS: LOSARTAN POTASSIUM 100 MG TABLET PO (08:52)
[2020-10-28] MEDS: PANTOPRAZOLE 40 MG TABLET PO (08:52)
--- NOTE | 2020-10-28 09:08 | PC.NURSE ---
0900-pt not given diabetic meds as she is NPO for procedure.
--- NOTE | 2020-10-28 09:16 | PC.NURSE ---
Preop wash applied to the left chest and shoulder. Procedure explained and questions answered.
--- NOTE | 2020-10-28 10:17 | WPDHPUPDATE1 ---
History and Physical Update Update Date/Time: 10/28/20 10:17 History and Physical has been reviewed, including an updated exam of the patient. There are NO changes in the patient's condition. Risks, benefits, and alternatives have been discussed and questions answered. Patient agrees to proceed with procedure.
--- NOTE | 2020-10-28 10:18 | WPDMODSED ---
Moderate Sedation Note-Pt Data Patient Data Diagnosis: Symptomatic bradycardia, av node dysfunction and AV block Present Complaint: Dyspnea on exertion, unable to walk around the park anymore, fatigue. Procedure to be performed/Plan: Conscious sedation Venogram Iinsertion of a permanent dual-chamber pacemaker Allergies Allergy/AdvReac Type Severity Reaction Status Date / Time acetaminophen Allergy Intermediate Nausea and Verified 10/26/20 16:47 Vomiting hydrocodone Allergy Intermediate Nausea and Verified 10/26/20 16:47 Vomiting Home Medications Medication Instructions Recorded Confirmed Type calcium carbonate 600 mg calcium 1,200 mg PO DAILY 09/26/19 10/26/20 History (1,500 mg) tablet lutein 6 mg capsule 6 mg PO DAILY 09/26/19 10/26/20 History tramadol 50 mg tablet 50 mg PO Q8H PRN #90 tablet 10/30/19 10/26/20 Rx sitagliptin 50 mg tablet 50 mg PO DAILY #30 tablet 08/23/20 10/26/20 Rx amlodipine 10 mg PO HS 10/26/20 10/26/20 History esomeprazole magnesium [Nexium] 40 mg PO DAILY 10/26/20 10/26/20 History estradiol 1 patch TRANSDERMAL 2XW 10/26/20 10/26/20 History lifitegrast [Xiidra] 1 drp OPHTHALMIC (EYE) Q12H 10/26/20 10/26/20 History losartan 100 mg PO DAILY 10/26/20 10/26/20 History metformin 1,000 mg PO BID 10/26/20 10/27/20 History Current Medications: Active Medications Dextrose (Dextrose 50% 25 Gm/50 Ml Syringe) 12.5 gm IV PUSH PRN PRN; Protocol PRN Reason: Hypoglycemia Glucagon (Glucagon For Inj 1 Mg Vial) 1 mg IM PRN PRN; Protocol PRN Reason: Hypoglycemia Glucose (Glucose Oral Gel 15 Gm Of Glucse In 37.5 Gm Tube) 15 gm PO PRN PRN; Protocol PRN Reason: Hypoglycemia Dextrose (Dextrose 5% 1,000 Ml) 1,000 mls @ 100 mls/hr IVPB PRN PRN; Protocol PRN Reason: Hypoglycemia Cefazolin Sodium (Ancef 1 Gm/D5w 50 Ml Pm) 1 gm in 50 mls @ 100 mls/hr IVPB ONCE ONE Stop: 10/28/20 10:29 Insulin Aspart (Insulin Aspart (*Bkc) 100 Units/Ml) 3 - 6 units SUB-Q TIDWM HORACE; Protocol Last Admin: 10/28/20 08:07 Dose: Not Given Documented by: Losartan Potassium (Losartan Potassium 100 Mg Tablet) 100 mg PO DAILY [facility] Last Admin: 10/28/20 08:52 Dose: 100 mg Documented by: Metformin HCl (Metformin Hcl 500 Mg Tablet) 1,000 mg PO BIDWM [facility] Last Admin: 10/28/20 09:07 Dose: Not Given Documented by: Pantoprazole Sodium (Pantoprazole 40 Mg Tablet) 40 mg PO QAM [facility] Last Admin: 10/28/20 08:52 Dose: 40 mg Documented by: Sitagliptin Phosphate (Sitagliptin 50 Mg Tablet) 50 mg PO DAILY [facility] Last Admin: 10/28/20 09:08 Dose: Not Given Documented by: Sedation/Anesthesia: No previous sedation/anesthesia problems (including family history). [facility] Past Medical History Medical History (Updated 10/27/20 @ 18:47 by Lukas Steward MD) Bilateral low back pain with right-sided sciatica Carotid stenosis, bilateral Cerebrovascular disease, unspecified Cerumen impaction Chronic left shoulder pain Chronic right shoulder pain Diabetes mellitus type 2 with neurological manifestations Encounter for screening mammogram for malignant neoplasm of breast Essential (primary) hypertension Facial pressure Gastro-esophageal reflux disease without esophagitis Headache Hormone replacement therapy (postmenopausal) Hyperlipidemia LDL goal <70 IBS (irritable bowel syndrome) Lung nodule Nontoxic multinodular goiter Osteoporosis Polyosteoarthritis, unspecified Type 2 diabetes mellitus with hyperglycemia Family History Family History Mother Hypertension Family history of diabetes mellitus in first degree relative Family history of chronic obstructive pulmonary disease Patient's mother is Diabetes mellitus Sibling Hypertension Diabetes mellitus Father Family history of malignant neoplasm Family history of coronary artery disease Social History Social History Smoking status: Never smoker Alcohol in
--- NOTE | 2020-10-28 11:06 | PC.NURSE ---
1010-pt taken to [facility] for PPM insertion
--- NOTE | 2020-10-28 12:16 | ECG_ITS ---
Measurements Intervals [place] Rate: 60 P: 264 [place]: 163 QRS: 67 QRSD: 96 T: 28 QT: 418 QTc: 419 Interpretive Statements ELECTRONIC ATRIAL PACEMAKER INCOMPLETE RIGHT BUNDLE BRANCH BLOCK BORDERLINE ECG Electronically Signed On 10-28-2020 19:48:53 FAT PRESSROOM WORKER by Bobby Jacques D.O.
--- NOTE | 2020-10-28 12:21 | PM.OP ---
Procedure Note - Brief Procedure Note - Brief Date of procedure: 10/28/20 Pre-op diagnosis: symptomatic bradycardia With sinus node dysfunction and high degree AV block Post-op diagnosis: same Procedure performed: conscious sedation venogram Implantation of a permanent dual-chamber Biotronik pacemaker Description of procedure: uneventful implantation of a permanent dual-chamber pacemaker Anesthesia: local ( with conscious sedation) Surgeon: Kerline Ty MD
--- NOTE | 2020-10-28 12:22 | PM.PROC ---
Procedure Note - Detailed Date of procedure: 10/28/20 Pre-op diagnosis: symptomatic bradycardia symptomatic AV node dysfunction and intermittent high degree/3rd degree AV block Post-op diagnosis: same Procedure performed: Conscious sedation Venogram Implantation of a permanent dual-chamber pacemaker Description of procedure: PROCEDURE PERFORMED: Conscious sedation Venogram Placement of a permanent dual-chamber pacemaker SITE: Left prepectoral area MEDICATIONS GIVEN IN NOZZLE CEMENT SPRAYER HELPER: Ancef 1 gram IV piggyback CONSCIOUS SEDATION: Assessment: The patient has no history of anesthesia problems. The patient's oropharynx is clear. The patient was deemed to be a good candidate for conscious sedation. The patient had continuous hemodynamic monitoring during the procedure. Start time: 1049 Completion time: 12 12 Total conscious sedation time: 93 minutes Medications: Versed 4 mg fentanyl 125 mcg IV push Trained observer: Tahir Guevara RN Outcome: The patient tolerated the procedure well with no complications. PROCEDURE: After informed consent , the patient was brought to the dock or pier laborer and the left prepectoral area was prepped and draped in usual fashion . The patient received preop antibiotic and conscious sedation . The left prepectoral area was anesthetized with lidocaine . A venogram was performed showing the course of the left subclavian vein,which was patent. Next a skin incision was made and carried down to the prepectoral fascia. Hemostasis was obtained using electrocautery . The pacer pocket was formed. The left subclavian vein was easily accessed with the micropuncture technique, and a J-tip guide wire was passed into the superior vena cava under fluoroscopic guidance . The needle was withdrawn . A 2nd wire was introduced in an identical fashion. A 6 Malagasy Malagasy safety sheath was passed over the lateral wire, the wire withdrawn, and the right ventricular lead was passed into the inferior vena cava under fluoroscopic guidance . The lead was then prolapsed through the tricuspid valve and advanced into the right ventricular apex. When suitable sensing and pacing thresholds were obtained, it was screwed into place. No extra cardiac stimulation was obtained using 10 volts. The sheath was withdrawn. Next, another 6 Malagasy safety sheath was passed over the more medial wire, the wire withdrawn, and the right atrial lead was passed into the inferior vena cava under fluoroscopic guidance. Right atrial lead was then pulled back to the level of the right atrium and manipulated into the right atrial appendage . When suitable sensing and pacing thresholds were obtained , it was screwed into place . No extra cardiac stimulation was obtained using 10 volts. The sheath was withdrawn. The right ventricular lead was then repostitioned due to an elevation of the threshold. Both leads were secured to the prepectoral fascia using 2-0 silk over their respective sleeves. The pocket was cleansed with antibiotic containing solution . The pulse generator was introduced into the operative field, and both leads were secured into the generator . A gentle tug showed the leads were securely fastened. The device was introduced into the pocket. A stay stitch was applied with 2 0 silk suture.The subcutaneous tissues were closed in a double layer fashion with interrupted sutures, using 2-0 Vicryl suture , and the skin was closed in a continuous fashion using 4-0 Vicryl suture in a continuous fashion. The area was cleansed, and an Aquacel dressing was applied . The patient tolerated the procedure well with no complications. PACEMAKER INFORMATION: Pulse generator: Biotronik Edora 8DR-T, serial number [id number] Right atrial lead: Biotronik Solia S45, serial number [id number] Right ventricular lead: Biotronik Solia S 53, serial number [id number] MEASURED DATA: Right atrial: P wave sensing 2.2 mV, impedance 565 Ohms, threshold 0.6 volts
[2020-10-28 13:08] LABS: Glucose Point of Care 150 (65-105)
[2020-10-28] MEDS: traMADol HCL (*CRX) 50 MG TABLET 100 MG PO ×2 (13:50→21:29)
--- NOTE | 2020-10-28 13:52 | PHAR ---
HOME MEDICATION VERIFIED BY PHARMACY: 3 MORE DROPERETTES OF FRANCISCO
[2020-10-28 16:11] LABS: Glucose Point of Care 272 (65-105)
[2020-10-28] MEDS: INSULIN ASPART (*BKC) 100 UNITS/ML SUB-Q (16:53)
[2020-10-28] MEDS: metFORMIN HCL 500 MG TABLET 1000 MG PO (16:53)
--- NOTE | 2020-10-28 17:24 | PM.IMPN ---
Progress Note: A&P Assessment and Plan (1) Chest pain: Qualifiers: Chest pain type: unspecified Qualified Code(s): R07.9 - Chest pain, unspecified Code(s): R07.9 - Chest pain, unspecified Status: Acute Assessment and Plan: Patient with bradycardia most likely the etiology of her chest pain from demand ischemia. Patient already on PPI so doubt GERD. PM placed today and her symptoms are already improving. She has tolerated the procedure well. Appreciate Cardiology input. (2) Bradycardia: Code(s): R00.1 - Bradycardia, unspecified Status: Acute Assessment and Plan: Patient with sinus bradycardia. TSH normal. As above. Appreciate Cardiology input. (3) Normocytic anemia: Code(s): D64.9 - Anemia, unspecified Status: Acute Assessment and Plan: Hgb 11.8 on admission. This is unchanged from December so suspect more of a chronic anemia. No evidence of acute blood loss. Iron studies consistent with iron deficiency. She has had a recent colonoscopy. Related to celiac? Replace iron. (4) Essential (primary) hypertension: Code(s): I10 - Essential (primary) hypertension Status: Chronic Assessment and Plan: Patient's blood pressure was reviewed on 10/28 Blood pressure elevated at times. Continue current medications with losartan and add back Norvasc at 5mg dose. (5) Diabetes mellitus type 2 with neurological manifestations: Code(s): E11.49 - Type 2 diabetes mellitus with other diabetic neurological complication Status: Chronic Assessment and Plan: A1c 6.2 in June. The patient's blood glucose was reviewed on 10/28 Glucose remains mostly well controlled. Continue AccuCheks covering with sliding scale. Hypoglycemia protocol available as needed. Continue current medications with metformin and Januvia (6) Pulmonary hypertension: Code(s): I27.20 - Pulmonary hypertension, unspecified Status: Acute Assessment and Plan: Echo showing moderate pulmonary hypertension with estimated pulmonary arterial systolic pressure of 64 mmHg. No hx of CHRISTIANA. She states she was tested when at [place] and was negative 2-3 years ago. Apnea link here showing AHI 16 and RI 20.6. Will need more formal testing as outpatient. (7) IBS (irritable bowel syndrome): Code(s): K58.9 - Irritable bowel syndrome without diarrhea Status: Acute Assessment and Plan: Patient had liquid stools yesterday. We had discussed the benefits of increasing fiber in her diet. (8) DVT prophylaxis: Code(s): Z29.9 - Encounter for prophylactic measures, unspecified Status: Acute Assessment and Plan: SCDs Subjective Date/time seen: 10/28/20 17:24 Interval history: Date of service 10/28 75yo female with DM, HTN and hx of polio here for chest pain and found to have bradycardia. Now s/p PM placed today. Patietn back from her procedure. She feels well. Eating okay. Pain controlled. SOB and CP better since PM placed. Exam Narrative: Exam Narrative: AF 97.2 123/59 77 14 95% ra Gen - NARD Chest - CTA bilaterally, nml RR; Left upper chest dressing is c/d/i CV - RRR S1/S2 Abd - Soft, NT/ND, Positive BS Ext - No pedal edema; RLE>>LLE in size Psych - Nml mood and affect Skin - Warm and dry Objective Data Vital Signs Vital Signs: Vital Signs - 24 hr 10/27/20 18:00 10/27/20 19:45 10/27/20 20:00 Temperature 97.3 F L Pulse Rate 47 L 49 L 51 L Respiratory Rate 16 Blood Pressure 127/53 L Pulse Oximetry 97 10/27/20 22:00 10/27/20 23:10 10/28/20 00:00 Temperature 97.6 F Pulse Rate 43 L 48 L 44 L Respiratory Rate 18 Blood Pressure 145/54 H Pulse Oximetry 96 10/28/20 02:00 10/28/20 04:00 10/28/20 05:20 Temperature 97.2 F L Pulse Rate 51 L 53 L 43 L Respiratory Rate 14 Blood Pressure 148/56 H Pulse Oximetry 99 10/28/20 06:00
[2020-10-28] MEDS: FERROUS SULFATE 324 MG TABLET PO (18:43)
[2020-10-28 19:12] LABS: Glucose Point of Care 232 (65-105)
[2020-10-28] MEDS: amLODIPine BESYLATE 5 MG TABLET PO (21:23)
[2020-10-28 22:50] LABS: Glucose Point of Care 135 (65-105)
[2020-10-29] VITALS (11 sets, daily range): BP systolic 130–150; BP diastolic 57–74; PULSE 60–70; RESP 14–18; TEMP 36.1–37.1; O2SAT 98–100
[2020-10-29] MEDS: traMADol HCL (*CRX) 50 MG TABLET 100 MG PO (03:13)
[2020-10-29] MEDS: PANTOPRAZOLE 40 MG TABLET PO (07:49)
[2020-10-29 07:55] LABS: Glucose Point of Care 148 (65-105)
[2020-10-29] MEDS: FERROUS SULFATE 324 MG TABLET PO (08:19)
[2020-10-29] MEDS: LOSARTAN POTASSIUM 100 MG TABLET PO (08:20)
[2020-10-29] MEDS: metFORMIN HCL 500 MG TABLET 1000 MG PO (08:20)
--- NOTE | 2020-10-29 09:41 | PM.PNCARD ---
Progress Note: A&P Assessment and Plan (1) Symptomatic bradycardia: Code(s): R00.1 - Bradycardia, unspecified Status: Acute Assessment and Plan: AV node dysfunction and intermittent high degree/3rd degree AV block. 10/27/2020: Left ventricular chamber size, wall thickness, systolic function are normal with no regional wall motion abnormality estimated ejection fraction 65-70%. Grade 2 diastolic dysfunction. Right ventricular chamber dimension is mildly enlarged with normal systolic function. Left atrial chamber dimension is moderately enlarged. Right atrial chamber dimension is mildly enlarged. Mild mitral regurgitation. Mild tricuspid regurgitation moderate pulmonary hypertension with estimated arterial systolic pressure 64 mm Hg. (2) S/P placement of cardiac pacemaker: Code(s): Z95.0 - Presence of cardiac pacemaker Status: Acute Assessment and Plan: Status post Biotronik dual-chamber pacemaker placed 10/28/[address] Ty. Pacemaker is functioning normally as programmed. Sensing and lead impedances are within normal limits. No changes made in her device today. Chest x-ray: No pneumothorax. Reviewed activity restrictions and follow-up. Questions were answered. She verbalized understanding of all instructions especially the instruction to avoid falls. Additional Plan OK to discharge from cardiac standpoint. See discharge instructions for follow-up. Plan discussed with Dr. Alvarez 0950 10/29/2020 Subjective Date/time seen: 10/29/20 09:41 Interval history: Follow-up for: Symptomatic bradycardia, symptomatic AV node dysfunction and intermittent high degree block status post Biotronik dual-chamber pacemaker 10/28/2020 Date of service: 10/29/2020 Subjective: Only tired. Denied chest discomfort, shortness of breath, lightheadedness or palpitations. Minimal discomfort at the pacemaker insertion site. Review of Systems Constitutional: Constitutional: Reports fatigue Eyes: Eyes: Denies blind spots and Denies blurry vision ENT: Reports Normal hearing present and Denies dizziness Cardiovascular: Cardiovascular: Denies chest pain, Denies syncope, Denies lightheadedness and Denies dyspnea Respiratory: Respiratory: Denies cough, Denies dyspnea on exertion and Denies wheezing Gastrointestinal: Gastrointestinal: Denies diarrhea, Denies nausea and Denies vomiting Genitourinary: Genitourinary: Denies hematuria Musculoskeletal: Musculoskeletal: Reports abnormal gait (Due to polio ) and Reports arthralgias Integumentary/Breasts: Skin/Breast: Denies erythema, Denies rash and Denies unusual bruising Neurologic: Reports abnormal gait (Due to polio) Psychiatric: Psychiatric: Denies anxiety and Denies depression Endocrine: Endocrine: Reports fatigue Hematologic/Lymphatic: Hematologic/Lymphatic: Denies easy bleeding and Denies easy bruising Allergic/Immunologic: Allergic/Immunologic: Denies throat swelling, Denies tongue swelling and Denies wheezing Exam Const: General: comfortable and no acute distress HENMT: Mouth: Yes moist mucous membranes Eyes: Sclera: sclerae normal Pupils: Equal, round and reactive pupils present Neck: Neck: no JVD Chest: Other: Left subclavian Aquacel dressing intact. No swelling or drainage. Minimal tenderness on palpation. Resp: Effort & Inspection: normal respiratory effort Auscultation: clear to auscultation bilaterally Cardio: Rate: regular rate Rhythm: regular rhythm Other: Soft grade 2/6 systolic murmur at the does not appear to radiate from the left sternal border GI: GI Palp: Yes Soft to palpation Auscultation: normal bowel sounds Skin: General skin exam: normal color and no rashes or lesions noted Neuro: General: patient oriented x3 Cranial nerves: Yes Equal, round and reactive pupils present Cognition (Neuro): normal cognition Speech: normal spee
[2020-10-29 12:19] LABS: Glucose Point of Care 132 (65-105)
--- NOTE | 2020-10-29 14:07 | PM.DS ---
DS: Admitting Diagnosis Admitting Diagnosis Admitting Diagnosis: symptomatic bradycardia DS: Discharge Diagnosis Discharge Diagnosis (1) Chest pain: Qualifiers: Chest pain type: unspecified Qualified Code(s): R07.9 - Chest pain, unspecified Code(s): R07.9 - Chest pain, unspecified Status: Acute Assessment and Plan: Patient with bradycardia most likely the etiology of her chest pain from demand ischemia. Patient already on PPI so doubt GERD. PM placed 12/10 and her symptoms of chest pain resolved. She tolerated the procedure well. Appreciate Cardiology input. (2) Bradycardia: Code(s): R00.1 - Bradycardia, unspecified Status: Acute Assessment and Plan: Patient with sinus bradycardia. TSH normal. As above. (3) Normocytic anemia: Code(s): D64.9 - Anemia, unspecified Status: Acute Assessment and Plan: Hgb 11.8 on admission. This is unchanged from December so suspect more of a chronic anemia. No evidence of acute blood loss. Iron studies consistent with iron deficiency. She has had a recent colonoscopy. Related to celiac? Iron replacement ordered. (4) Essential (primary) hypertension: Code(s): I10 - Essential (primary) hypertension Status: Chronic Assessment and Plan: Patient's blood pressure was monitored. Blood pressure elevated at times. We resumed her home meds. (5) Diabetes mellitus type 2 with neurological manifestations: Code(s): E11.49 - Type 2 diabetes mellitus with other diabetic neurological complication Status: Chronic Assessment and Plan: A1c 6.2 in June. The patient's blood glucose was monitored with AccuCheks covering with sliding scale. Hypoglycemia protocol was available as needed. We continued current medications with metformin and Januvia (6) Pulmonary hypertension: Code(s): I27.20 - Pulmonary hypertension, unspecified Status: Acute Assessment and Plan: Echo showing moderate pulmonary hypertension with estimated pulmonary arterial systolic pressure of 64 mmHg. No hx of CHRISTIANA. She states she was tested when at [place] and was negative 2-3 years ago. Apnea link here showing AHI 16 and RI 20.6. Will need more formal testing as outpatient. (7) IBS (irritable bowel syndrome): Code(s): K58.9 - Irritable bowel syndrome without diarrhea Status: Acute Assessment and Plan: Patient had liquid stools one day. We discussed the benefits of increasing fiber in her diet. DS: Summary Hospital Course Reason for hospitalization: 75yo female with DM, HTN and hx of polio here for chest pain and found to have bradycardia. Please see H&P for details. Hospital Course: Please see above for details of hospital course. Status at Discharge Cognitive/behavioral status at discharge: PATIENT IS STABLE FOR DISCHARGE Time Spent with Patient Time attestation: Total time spent providing and/or coordinating discharge services: 38 minutes Time spent: Greater than 30 minutes Exam Narrative: Exam Narrative: AF 98.0 130/57 60 18 100% ra Gen - NARD Chest - CTA bilaterally, nml RR. Left upper chest dressing clean, intact and dry CV - RRR S1/S2 Abd - Soft, NT/ND, Positive BS Ext - No pedal edema Psych - Nml mood and affect Skin - Warm and dry DS: Data Data Completed and Pending Labs on day of discharge: Labs from last 24 hours 10/29/20 10/29/20 10/28/20 12:16 07:47 22:46 POC Capillary Glucose 132 H 148 H 135 H 10/28/20 10/28/20 19:10 16:09 POC Capillary Glucose 232 H 272 H Discharge Plan Discharge Attending physician on discharge: Lukas Steward Consulting providers: Baljeet Alvarez Discharging Clinician: Lukas Steward Anticipated Discharge Date/Time: 10/29/20 14:14 Patient Disposition: Home, Self-Care Activity: other - see discharge instructions Diet: heart healthy Wound Care In
[2020-11-02 12:11] LABS: Gliadin AB, IgG 3 Units (<20); Reticulin IgA Negative (Negative); TTG IGA AB 1 U/mL (<4)
--- NOTE | 2020-11-02 15:03 | PC.NURSE ---
Celiac panel is negative
== END 2020-10-29 15:15 | disposition home or self-care (01) | DRG 243 ==
LOC: ANHED 20:31 → ANHCPC 10-27 02:57
PROVIDERS: Internal Medicine Cardiovascular Disease; Admitting Provider Family Medicine; Emergency Provider Emergency Medicine; PCP Internal Medicine; Visit Provider Internal Medicine
PROC: 0JH606Z Insertion of Pacemaker, Dual Chamber into Chest Subcutaneous Tissue and Fascia, Open Approach (ICD-10-PCS; CPT 33208; principal; 2020-10-28 10:30)
DX: I44.2 Atrioventricular block, complete (principal); I24.8 Other forms of acute ischemic heart disease; I27.20 Pulmonary hypertension, unspecified; D64.9 Anemia, unspecified; E11.49 Type 2 diabetes mellitus with other diabetic neurological complication; I10 Essential (primary) hypertension; K21.9 Gastro-esophageal reflux disease without esophagitis; K58.9 Irritable bowel syndrome, unspecified; Z86.12 Personal history of poliomyelitis; Z79.84 Long term (current) use of oral hypoglycemic drugs; Z79.899 Other long term (current) drug therapy
CPT/HCPCS: 33208; 36415; 70450; 71045; 71046; 71275; 80048; 80053; 82607; 82728; 82746; 83516; 83540; 83550; 83880; 84443; 84484; 85025; 85380; 85610; 85730; 86255; 93005; 93306; 99285; A9270; C1779; C1785; G0378; J0690; J1815; J2250; J3010; J7040; Q9967

== ENCOUNTER 2020-10-30 13:33 | Observation (INO) | payer MEDICARE, SELFPAY ==
[2020-10-30] VITALS (11 sets, daily range): BP systolic 99–125; BP diastolic 55–89; PULSE 60–82; RESP 17–22; TEMP 36.6–37.3; O2SAT 97–100; BMI 28.0
--- NOTE | ~2020-10-30 | XR_ITS ---
EXAMINATION: XR chest 2V DATE: 10/30/2020 14:49 INDICATION: Chest pain, recent pacemaker insertion TECHNIQUE: Frontal and lateral views of the chest are obtained COMPARISON: 10/29/2020 FINDINGS: The lungs are free of acute opacities. There is no pleural effusion or pneumothorax. The he art size is normal. A dual-lead cardiac pacemaker of the left chest wall ends with leads in expected locations. Changes of right total shoulder arthroplasty are noted. There are also partially imaged ch anges of fusion procedure in the lower cervical spine. Surgical clips in the right upper quadrant are likely from prior cholecystectomy. IMPRESSION: 1. No acute cardiopulmonary abnormality. Reviewed, dictated and finalized at location A. MIDWIFE
--- NOTE | ~2020-10-30 | US_ITS ---
EXAMINATION: US venous doppler [facility] DATE: 10/31/2020 08:48 INDICATION: Lower limb swelling. Pulmonary embolism. TECHNIQUE: Grayscale ultrasound images without and with compression and Doppler ultrasound images of the bilateral lower extremity veins were obtained. COMPARISON: None. FINDINGS: The visualized portions of right common femoral vein, profunda (deep) femoral vein, femoral vein, pop liteal vein, posterior tibial veins, peroneal veins, gastrocnemius vein and greater saphenous vein ou tflow are patent. The visualized portions of left common femoral vein, profunda femoral vein, femoral vein, popliteal v ein, posterior tibial veins, peroneal veins, gastrocnemius vein and greater saphenous vein outflow ar e patent. IMPRESSION: 1. No deep venous thrombosis in either lower limb. Reviewed, dictated and finalized at location A. CAL ACCOUNTING CLERK
--- NOTE | ~2020-10-30 | CT_ITS ---
EXAMINATION: CTA chest PE protocol DATE: 10/30/2020 16:18 INDICATION: Shortness of breath TECHNIQUE: Computed tomography angiography (CTA) of the chest was performed with 100 mL Omnipaque-350 intravenous contrast timed to evaluate the pulmonary arteries. Coronal maximum intensity projection 3D-reconstructions were created by the technologist. The dose-length product (DLP) was 453.46 mGy-cm. Automated exposure control and iterative reconstruction technique were employed. COMPARISON: 10/26/2020 FINDINGS: The pulmonary as are well-opacified. There is an embolism in a subsegmental branch of the r ight lower lobe. There is no pleural effusion or pneumothorax. Stable nodules of the right upper lobe measure up to 6 mm. There is stable cardiomegaly. No pathologically enlarged thoracic lymph nodes ar e identified. There has been interval insertion of a cardiac pacemaker into the left anterior chest w all which ends with its leads in the right atrium and right ventricle. A small amount of fluid near t he left subclavian vein is likely postprocedural in nature. The gallbladder is surgically absent. The re is mild thoracic spondylosis. Changes of right total shoulder arthroplasty and anterior lower cerv ical spine fusion are noted. IMPRESSION: 1. Acute pulmonary embolus in a subsegmental branch of the right lower lobe. 2. Interval pacemaker insertion. These findings were discussed with Dr. Todd Amaya MD in the Emergency Department at 1634 hours on 10/30/2020. Reviewed, dictated and finalized at location A. IVING CLERK IMPRESSION: 1. Acute pulmonary embolus in a subsegmental branch of the right lower lobe. 2. Interval pacemaker insertion. These findings were discussed with Dr. Todd Amaya MD in the Emergency Depar tment at 1634 hours on 10/30/2020.
--- NOTE | 2020-10-30 14:06 | ECG_ITS ---
Measurements Intervals [place] Rate: 20 P: 35 [place]: 159 QRS: 14 QRSD: 94 T: 24 QT: 345 QTc: 199 Interpretive Statements ELECTRONIC ATRIAL PACEMAKER ST-T WAVE ABNORMALITY IN ANTEROLATERAL LEADS- CONSIDER ISCHEMIA BASELINE ARTIFACT- I, II, III, AVR, AVL, AVF, V1 ABNORMAL ECG Electronically Signed On 10-30-2020 14:10:01 ADMINISTRATIVE SERVICES ASSISTANT by Bobby Jacques D.O.
[2020-10-30] MEDS: BELLADONNA ALK/PHENOB ELIX 10 ML, MAG HYDROX/ALUMINUM HYD/SIMETH 30 ML, LIDOCAINE HCL 2... PO (14:23)
[2020-10-30 14:46] LABS: Basophils Percent Auto 0.3 % (0.2-1.2); Eosinophils Absolute Auto 0.1 K/mm3 (0-0.3); Eosinophils Percent Auto 1.1 % (0-4.4); Hematocrit 34.3 % (37.0-47.0); Hemoglobin 11.2 g/dL (12.0-15.0); Immature Granulocyte Absolute 0.07 K/mm3 (0.00-0.031); Immature Granulocyte Percent A 0.6 % (0-0.5); Lymphocytes Absolute Auto 2.49 K/mm3 (0.9-3.2); Lymphocytes Percent Auto 19.7 % (18.3-44.2); Mean Corpuscular HGB Conc 32.7 g/dl (32-36); Mean Corpuscular Hemoglobin 30.1 pg (26-34); Mean Corpuscular Volume 92.2 fl (80-100); Mean Platelet Volume 10.2 fl (7.4-10.4); Monocytes Percent Auto 7.8 % (2.6-8.5); Neutrophils Absolute Auto 8.9 K/mm3 (1.3-6.7); Neutrophils Percent Auto 70.5 % (45.5-73.1); Platelet Count Result 279 k/mm3 (150-375); Red Blood Count 3.72 M/mm3 (4.2-5.4); Red Cell Distribution Width 13.4 % (11.5-14.5); White Blood Count 12.6 K/mm3 (4.5-10.0)
[2020-10-30 14:57] LABS: D Dimer 1.31 ug/mL (<0.48)
[2020-10-30 15:12] LABS: Anion Gap -1 mmol/L (8-16); Blood Urea Nitrogen 13 mg/dL (7-17); Calcium 9.8 mg/dL (8.4-10.2); Carbon Dioxide 29 mmol/L (22-30); Chloride 99 mmol/L (98-107); Estimated Glomerular Filt Rate > 60; Glucose 140 mg/dL (65-105); Potassium 4.1 mmol/L (3.4-5.0); Sodium 127 mmol/L (137-145)
--- NOTE | 2020-10-30 15:53 | ED.GENADULT ---
HPI - General Adult General Chief complaint: Unspecified Stated complaint: CP, swelling to left hand Time Seen by Provider: 10/30/20 13:40 Source: patient and family Mode of arrival: ambulatory Limitations: no limitations History of Present Illness HPI narrative: 75-year-old female She was discharged yesterday after having a pacemaker placed She originally presented to urgent care because she was afraid she might have Covid, but was found to be bradycardic, sent to the ED, and eventually did wind up getting a pacer placed She said that just before she was discharged she had a small painful area on her left wrist close to an IV site. This area has become larger, more tender, more swollen over the subsequent 36 hours She also notes she has had some right anterior chest pains which are not very severe and are not accompanied by any significant shortness of breath or fever or a cough, but do worsen with deep inspiration Her notes that her anxiety level seems to have increased as well Related Data Home Medications Medication Instructions Recorded Confirmed calcium carbonate 600 mg calcium 1,200 mg PO DAILY 09/26/19 10/26/20 (1,500 mg) tablet lutein 6 mg capsule 6 mg PO DAILY 09/26/19 10/26/20 Xiidra 1 drp OPHTHALMIC (EYE) Q12H 10/26/20 10/26/20 amlodipine 10 mg PO HS 10/26/20 10/26/20 esomeprazole magnesium [Nexium] 40 mg PO DAILY 10/26/20 10/26/20 estradiol 1 patch TRANSDERMAL 2XW 10/26/20 10/26/20 losartan 100 mg PO DAILY 10/26/20 10/26/20 metformin 1,000 mg PO BID 10/26/20 10/27/20 Allergies Allergy/AdvReac Type Severity Reaction Status Date / Time acetaminophen Allergy Intermediate Nausea and Verified 10/26/20 16:47 Vomiting hydrocodone Allergy Intermediate Nausea and Verified 10/26/20 16:47 Vomiting aspirin AdvReac Gastrointestinal Verified 10/30/20 13:47 Upset Review of Systems Review of Systems: All systems reviewed & are unremarkable except as noted in HPI and below Constitutional: Constitutional: Denies chills, Reports fatigue, Denies fever(s), Denies headache(s) and Denies weakness Eyes: Eyes: Reports no additional eye complaints and Denies change in vision ENT: Denies headache(s), Denies epistaxis, Denies nasal congestion and Denies sore throat Cardiovascular: Cardiovascular: Reports chest pain, Denies leg edema, Denies palpitations and Denies dyspnea Respiratory: Respiratory: Denies cough, Denies dyspnea and Denies wheezing Gastrointestinal: Gastrointestinal: Denies abdominal pain, Denies diarrhea, Denies nausea and Denies vomiting Genitourinary: Genitourinary: Denies hematuria, Denies urinary frequency and Denies dysuria Musculoskeletal: Musculoskeletal: Denies deformity, Reports arthralgias, Reports joint swelling, Reports limited range of motion, Denies muscle weakness and Denies numbness Comments: (thumb) Integumentary/Breasts: Skin/Breast: Denies rash and Denies wounds Neurologic: Denies headache(s) and Denies focal weakness Psychiatric: Psychiatric: Reports no additional psychiatric complaints Endocrine: Endocrine: Denies fatigue and Denies palpitations Hematologic/Lymphatic: Hematologic/Lymphatic: Denies easy bleeding and Denies easy bruising Allergic/Immunologic: Allergic/Immunologic: Denies wheezing PMFSH Past Medical History Medical History (Updated 10/30/20 @ 17:08 by Todd Amaya MD) Bilateral low back pain with right-sided sciatica Carotid stenosis, bilateral Cerebrovascular disease, unspecified Cerumen impaction Chronic left shoulder pain Chronic right shoulder pain Diabetes mellitus type 2 with neurological manifestations Encounter for screening mammogram for malignant neoplasm of breast Essential (primary) hypertension Facial pressure Gastro-esophageal reflux disease without esophagitis Headache Hormone replacement therapy (postmenopausal) Hyperlipidemia LDL goal <70 IBS (irritable bowel syndrome) Lung nodule Nontoxic multinodular goiter Oste
[2020-10-30 16:44] LABS: Anion Gap 6 mmol/L (8-16); Blood Urea Nitrogen 12 mg/dL (7-17); Calcium 9.5 mg/dL (8.4-10.2); Carbon Dioxide 26 mmol/L (22-30); Chloride 100 mmol/L (98-107); Estimated Glomerular Filt Rate > 60; Glucose 144 mg/dL (65-105); Potassium 3.9 mmol/L (3.4-5.0); Sodium 132 mmol/L (137-145)
[2020-10-30] MEDS: LACTATED RINGERS 1,000 ML 30 ML IV CONT (17:18)
[2020-10-30] MEDS: ENOXAPARIN 80 MG/0.8 ML SYRINGE SUB-Q (17:19)
--- NOTE | 2020-10-30 18:33 | PC.NURSE ---
This patient, Linh Mc, was admitted to Medical Room 252-01. Patient/family oriented to hospital policies and general routines including ID bracelet, bed and alarms, visiting hours, pain management, procedures, bathroom and other care routines, personal items, smoking policy, room service/diet, and visiting hours. Information on how to activate the Rapid Response Team has been discussed. Patient/Family are encouraged to report perceived risks to care and to ask questions if they do not understand what they are told or what they should do.
[2020-10-30] MEDS: traMADol HCL (*CRX) 25 MG TABLET PO (20:49)
--- NOTE | 2020-10-30 20:55 | PM.IMHP ---
H&P: HPI History of Present Illness Date/Time: 10/30/20 20:55 Chief complaint: PE, Phlebitis, hyponatremia Narrative: Linh Mc is a 75 year old female with past medical history diabetes, hypertension, history of polio presents to the ED with complaints of chest pain. Patient was recently admitted 10/27 to 10/29. She was originally concern for COVID-19 went to Urgent Care, was found to be bradycardic, was admitted here and had pacemaker placed with no complications discharge 10/29. The thought was her chest pain was from demand ischemia leading to pacemaker indication. Patient had mechanical VTE prophylaxis due to pacemaker placement. Patient is to have limited activity until pacemaker check which was scheduled for 11/03/2020. Patient states she has been using estrogen supplement for 20 years the estradiol transdermal patch. Patient denies any recent travels. She denies any trauma to her leg. She did have significant surgical history with pacemaker placement. Patient has history of polio which affects her left lower extremity. She states her left lower extremity muscles have atrophied because of polio and that her right lower extremity is always larger in size. She does not endorse any increase in swelling or pain in the lower extremities. Denies any family history of blood clots that she knows of. Patient is never smoker. In the ED: Chest x-ray negative. Patient has sharp chest pain and CTA showed pulmonary embolism subsegmental branch right lower lobe. Patient also has some phlebitis in her left hand from IV site. Patient was admitted for observation for acute PE. Review of Systems Review of Systems: Narrative: Constitutional: No Fever, No Chills, No Night Sweats, No Fatigue, No Malaise ENT/Mouth: No Hearing Changes, No Ear Pain, No Nasal Congestion, No Sinus Pain, No Hoarseness, No sore throat, No Rhinorrhea, No Swallowing Difficulty Eyes: No Eye Pain, No Redness, No Vision Changes Cardiovascular: No Palpitations, No Dyspnea on Exertion, No Orthopnea, No Claudication, No Edema. Right-sided chest pain nonexertional. Respiratory: No Cough, No Sputum, No Wheezing, No Shortness of Breath Gastrointestinal: No Nausea, No Vomiting, No Diarrhea, No Constipation, No Abdominal Pain, No Heartburn, No Hematochezia, No Melena Genitourinary: No Dysuria, No Urinary Frequency, No Hematuria, No Urinary Incontinence, No Urgency Musculoskeletal: No Arthralgias, No Myalgias, No Joint Swelling, No Joint Stiffness, No Back Pain Skin: No Skin Lesions, No Pruritis, No Hair Changes Neuro: No Weakness, No Numbness, No Paresthesias, No Loss of Consciousness, No Syncope, No Dizziness, No Headache Psych: No Anxiety/Panic, No Depression, No Insomnia Heme: No Bruising, No Bleeding Lymph: No Adenopathy Endocrine: No Polyuria, No Polydipsia, No Temperature Intolerance [facility] Past Medical History Medical History Bilateral low back pain with right-sided sciatica Carotid stenosis, bilateral Cerebrovascular disease, unspecified Cerumen impaction Chronic left shoulder pain Chronic right shoulder pain Diabetes mellitus type 2 with neurological manifestations Encounter for screening mammogram for malignant neoplasm of breast Essential (primary) hypertension Facial pressure Gastro-esophageal reflux disease without esophagitis Headache Hormone replacement therapy (postmenopausal) Hyperlipidemia LDL goal <70 IBS (irritable bowel syndrome) Lung nodule Nontoxic multinodular goiter Osteoporosis Polyosteoarthritis, unspecified Type 2 diabetes mellitus with hyperglycemia Surgical History Surgical History (Updated 10/30/20 @ 21:55 by Tavon Mas DO) S/P placement of cardiac pacemaker placed 10/28/2020 Family History Family History Mother Hypertension Family history of diabetes mellitus in first degree relative Family histo
[2020-10-30] MEDS: amLODIPine BESYLATE 5 MG TABLET 10 MG PO (23:02)
[2020-10-31] VITALS: PULSE 60
[2020-10-31 00:54] LABS: Glucose Point of Care 197 (65-105)
[2020-10-31 04:00] VITALS: PULSE 63
[2020-10-31] MEDS: ENOXAPARIN 60 MG/0.6 ML SYRINGE SUB-Q (05:59)
[2020-10-31 06:00] VITALS: BP 128/48; PULSE 62; RESP 18; TEMP 36.5; O2SAT 99
[2020-10-31] MEDS: PANTOPRAZOLE 40 MG TABLET PO (06:06)
[2020-10-31 06:36] LABS: Basophils Percent Auto 0.3 % (0.2-1.2); Eosinophils Absolute Auto 0.2 K/mm3 (0-0.3); Eosinophils Percent Auto 2.9 % (0-4.4); Hematocrit 30.5 % (37.0-47.0); Hemoglobin 9.8 g/dL (12.0-15.0); Immature Granulocyte Absolute 0.03 K/mm3 (0.00-0.031); Immature Granulocyte Percent A 0.4 % (0-0.5); Immature Platelet Fraction Pct 4.5 % (0.9-11.2); Lymphocytes Absolute Auto 2.25 K/mm3 (0.9-3.2); Mean Corpuscular HGB Conc 32.1 g/dl (32-36); Mean Corpuscular Hemoglobin 28.7 pg (26-34); Mean Corpuscular Volume 89.2 fl (80-100); Monocytes Absolute Auto 0.6 K/mm3 (0.1-0.6); Monocytes Percent Auto 9.2 % (2.6-8.5); Neutrophils Absolute Auto 3.7 K/mm3 (1.3-6.7); Neutrophils Percent Auto 54.2 % (45.5-73.1); Platelet Count Result 241 k/mm3 (150-375); Red Blood Count 3.42 M/mm3 (4.2-5.4); Red Cell Distribution Width 13.3 % (11.5-14.5); White Blood Count 6.8 K/mm3 (4.5-10.0)
[2020-10-31 06:47] LABS: Anion Gap 6 mmol/L (8-16); Blood Urea Nitrogen 9 mg/dL (7-17); Calcium 9.1 mg/dL (8.4-10.2); Carbon Dioxide 28 mmol/L (22-30); Chloride 103 mmol/L (98-107); Estimated Glomerular Filt Rate > 60; Glucose 114 mg/dL (65-105); Magnesium 1.7 mg/dL (1.6-2.3); Potassium 3.6 mmol/L (3.4-5.0); Sodium 137 mmol/L (137-145)
[2020-10-31 08:00] VITALS: PULSE 67
[2020-10-31] MEDS: traMADol HCL (*CRX) 25 MG TABLET PO (08:58)
[2020-10-31] MEDS: LOSARTAN POTASSIUM 100 MG TABLET PO (08:59)
[2020-10-31] MEDS: cycloSPORINE 0.4 ML OPHTH SOLUTION 1 DROP EACH EYE (08:59)
[2020-10-31] MEDS: CALCIUM CARBONATE (OSCAL) 500 MG TABLET 1000 MG PO (08:59)
[2020-10-31] MEDS: INSULIN ASPART (*BKC) 100 UNITS/ML SUB-Q (09:09)
[2020-10-31 09:19] LABS: Glucose Point of Care 282 (65-105)
[2020-10-31 12:00] VITALS: PULSE 66
[2020-10-31 12:11] LABS: Glucose Point of Care 69 (65-105)
--- NOTE | 2020-10-31 13:39 | PM.DS ---
DS: Admitting Diagnosis Admitting Diagnosis Admitting Diagnosis: PE, Phlebitis, hyponatremia DS: Discharge Diagnosis Discharge Diagnosis (1) Pulmonary embolism: Code(s): I26.99 - Other pulmonary embolism without acute cor pulmonale Status: Acute Assessment and Plan: Patient returns to ED for complaints of left hand pain and chest 'soreness'. She had a CTA chest showing an acute pulmonary embolism subsegmental branch of right lower lobe. CTA on 10/26/20 was negative. She was on SCDs here due to PM placement. Most likely provoked PE with use of estrogen patch as well as recent surgery. No history of PE, patient will need 6 months of anticoagulation for first time acute provoked PE and stop estrogen supplement. She remained on room air. Patient was started on full-dose Lovenox and was switched to DOAC the next morning. Stop E2. Discussed risks/benefits of anticoagulation. All questions answered. (2) Hyponatremia: Code(s): E87.1 - Hypo-osmolality and hyponatremia Status: Acute Assessment and Plan: Na 127 on admission. She appears to be euvolemic but states she feels dry. On 10/28 sodium was 138. On recheck, Na 132. Gentle hydration 30 cc LR overnight and recheck Na 137. (3) Phlebitis: Code(s): I80.9 - Phlebitis and thrombophlebitis of unspecified site Status: Acute Assessment and Plan: Left hand pain and edema consistent with recent IV. No evidence of infection. Supportive care provided. Patient states pain better today. (4) S/P placement of cardiac pacemaker: Code(s): Z95.0 - Presence of cardiac pacemaker Status: Acute Assessment and Plan: Patient with chest pain and bradycardia. Pacemaker placed 10/28/[address] Kerline Ty. Dressing to be removed 11/03/2020 with Pacemaker check 11/24/[address] Alvarez follow-up 02/24/2021 DS: Summary Hospital Course Reason for hospitalization: 75yo female here for chest pain and left hand pain and found to have small subsegmental PE. Please see H&P for details. Hospital Course: Please see above for details of hospital course Status at Discharge Cognitive/behavioral status at discharge: PATIENT IS STABLE FOR DISCHARGE Time Spent with Patient Time attestation: Total time spent providing and/or coordinating discharge services:35 minutes Time spent: Greater than 30 minutes Exam Narrative: Exam Narrative: AF 97.7 128/48 66 18 99% ra Gen - NARD Chest - CTA bilateral; left upper chest dressing clean and dry CV - RRR S1/S2 Abd -soft, NT, ND, +BS Ext - no edema (R>L in size) Neuro - AOx4 Psych - mildly anxious DS: Data Data Completed and Pending Labs on day of discharge: Labs from last 24 hours 10/31/20 10/31/20 10/31/20 12:02 09:04 05:42 WBC RBC Hgb Hct MCV MCH MCHC RDW Plt Count MPV Immature Gran % (Auto) Neut % (Auto) Lymph % (Auto) Stearns % (Auto) Eos % (Auto) Baso % (Auto) Lymph # (Auto) Stearns # (Auto) Eos # (Auto) Baso # (Auto) Abs Immat Gran (auto) Absolute Neuts (auto) Absolute Nucleated RBC Nucleated RBC % % Immature Plt Fraction D-Dimer Sodium 137 Potassium 3.6 Chloride 103 Carbon Dioxide 28 Anion Gap 6 L BUN 9 Creatinine 0.60 L Estim Creat Clear Calc Not Reportable Estimated GFR > 60 Glucose 114 H POC Capillary Glucose 69 282 H Calcium 9.1 Magnesium 1.7 Troponin I 10/31/20 10/30/20 10/30/20 05:42 23:15 16:26 WBC 6.8 RBC 3.42 L Hgb 9.8 L Hct 30.5 L MCV 89.2 MCH 28.7 MCHC 32.1 RDW 13.3 Plt Count 241 MPV 11.0 H Immature Gran % (Auto) 0.4 Neut % (Auto) 54.2 Lymph % (Auto) 33.0 Stearns % (Auto) 9.2 H Eos % (Auto) 2.9 Baso % (Auto) 0.3 Lymph # (Auto) 2.25 Stearns # (Auto) 0.6 Eos # (Auto) 0.2 Baso # (Auto) 0.0 Abs Immat Gran (auto) 0.03 Absolute Neuts (
[2020-10-31 13:52] VITALS: BP 127/54; PULSE 84; RESP 18; TEMP 37; O2SAT 100
[2020-10-31 14:00] LABS: Glucose Point of Care 148 (65-105)
== END 2020-10-31 14:59 | disposition home or self-care (01) ==
LOC: ANHED 17:09 → ANH2MED 17:45
PROVIDERS: Student in an Organized Health Care Education/Training Program; Admitting Provider Family Medicine; Emergency Provider Emergency Medicine; PCP Internal Medicine; Visit Provider Internal Medicine
DX: I26.99 Other pulmonary embolism without acute cor pulmonale (principal); I80.9 Phlebitis and thrombophlebitis of unspecified site; E87.1 Hypo-osmolality and hyponatremia; R07.9 Chest pain, unspecified; E11.49 Type 2 diabetes mellitus with other diabetic neurological complication; I10 Essential (primary) hypertension; K21.9 Gastro-esophageal reflux disease without esophagitis; E78.5 Hyperlipidemia, unspecified; E04.2 Nontoxic multinodular goiter; K58.9 Irritable bowel syndrome, unspecified; M81.0 Age-related osteoporosis without current pathological fracture; I67.9 Cerebrovascular disease, unspecified; Z79.84 Long term (current) use of oral hypoglycemic drugs; Z95.0 Presence of cardiac pacemaker; Z86.12 Personal history of poliomyelitis
CPT/HCPCS: 36415; 71046; 71275; 80048; 83735; 84484; 85025; 85055; 85380; 93005; 93970; 96372; 99285; A9270; G0378; J1650; J1815; J7120; Q9967

== ENCOUNTER 2020-11-23 15:19 | Outpatient (CLI) | payer MEDICARE, SELFPAY ==
[2020-11-23 16:00] LABS: Hematocrit 38.5 % (37.0-47.0); Hemoglobin 12.5 g/dL (12.0-15.0)
[2020-11-23 16:09] LABS: Anion Gap 8 mmol/L (8-16); Blood Urea Nitrogen 13 mg/dL (7-17); Calcium 10.4 mg/dL (8.4-10.2); Carbon Dioxide 25 mmol/L (22-30); Chloride 103 mmol/L (98-107); Estimated Glomerular Filt Rate > 60; Glucose 95 mg/dL (65-105); Potassium 3.9 mmol/L (3.4-5.0); Sodium 136 mmol/L (137-145)
== END 2020-11-23 15:20 | disposition home or self-care (01) ==
LOC: ANHLAB 15:21
PROVIDERS: PCP Internal Medicine; Visit Provider Internal Medicine
DX: D64.9 Anemia, unspecified (principal); E87.1 Hypo-osmolality and hyponatremia; I10 Essential (primary) hypertension
CPT/HCPCS: 36415; 80048; 85014; 85018

== ENCOUNTER 2020-11-25 13:44 | Outpatient (CLI) | payer MEDICARE, SELFPAY ==
[2020-11-25 14:15] LABS: Add Urine Microscopic? NO; Appearance Urine Clear (Clear); Bilirubin Urine Negative (Negative); Blood Urine Negative (Negative); Color Urine Colorless (Yellow); Glucose Urine UA Negative (Negative); Ketones Urine Negative (Negative); Leukocyte Esterase Ur Negative LEU/UL (Negative); Nitrate Urine Negative (Negative); Protein Urine Negative (Negative); Specific Grav Ur 1.005 (1.001-1.035); Urobilinogen Urine Negative mg/dL (<2.0)
== END 2020-11-25 13:45 | disposition home or self-care (01) ==
LOC: ANHLAB 13:46
PROVIDERS: PCP Internal Medicine; Visit Provider Internal Medicine
DX: R35.0 Frequency of micturition (principal)
CPT/HCPCS: 81003

== ENCOUNTER 2020-12-31 13:55 | Outpatient (CLI) | payer MEDICARE, SELFPAY ==
[2020-12-31 14:29] LABS: Hematocrit 38.7 % (37.0-47.0); Hemoglobin 12.7 g/dL (12.0-15.0)
[2020-12-31 15:49] LABS: Iron 93 ug/dL (37-170)
[2020-12-31 15:58] LABS: Percent Iron Saturation 21 % (20-50)
== END 2020-12-31 13:56 | disposition home or self-care (01) ==
PROVIDERS: PCP Internal Medicine; Visit Provider Internal Medicine
DX: D64.9 Anemia, unspecified (principal)
CPT/HCPCS: 36415; 83540; 83550; 85014; 85018

== ENCOUNTER 2021-04-06 13:56 | Emergency (ER) | payer MEDICARE, SELFPAY ==
--- NOTE | ~2021-04-06 | XR_ITS ---
EXAMINATION: XR chest 2V EXAM DATE: 04/06/2021 14:46 INDICATION: Mid chest pain. Shortness of breath. TECHNIQUE: Frontal and lateral projections of the chest obtained and reviewed. Comparison is made to prior examination from 10/30/2020. FINDINGS: There is a dual lead pacemaker/AICD seen with leads projecting over the expected locations of the right atrial appendage and right ventricle. Cardiomediastinal silhouette is normal. No conflu ent consolidation, pneumothorax or pleural effusion suspected. Cervical fusion hardware and right hip arthroplasty. There are cholecystectomy clips. IMPRESSION: No acute cardiopulmonary findings. Reviewed, dictated and finalized at location A.
[2021-04-06 14:11] VITALS: BP 140/74; PULSE 82; RESP 17; TEMP 36.4; O2SAT 99
--- NOTE | 2021-04-06 14:18 | ECG_ITS ---
Measurements Intervals [place] Rate: 68 P: 129 [place]: 235 QRS: -61 QRSD: 151 T: 67 QT: 415 QTc: 442 Interpretive Statements ELECTRONIC ATRIAL PACEMAKER ELECTRONIC VENTRICULAR PACEMAKER NO FURTHER INTERPRETATION IS POSSIBLE ATYPICAL ECG Electronically Signed On 04-06-2021 14:36:16 CDT by Bobby Jacques D.O.
[2021-04-06 14:44] LABS: Basophils Absolute Auto 0.1 K/mm3 (0.0-0.1); Basophils Percent Auto 0.6 % (0.2-1.2); Eosinophils Absolute Auto 0.2 K/mm3 (0-0.3); Eosinophils Percent Auto 1.8 % (0-4.4); Hematocrit 36.7 % (37.0-47.0); Hemoglobin 12.3 g/dL (12.0-15.0); Immature Granulocyte Absolute 0.02 K/mm3 (0.00-0.031); Immature Granulocyte Percent A 0.2 % (0-0.5); Lymphocytes Absolute Auto 3.31 K/mm3 (0.9-3.2); Lymphocytes Percent Auto 34.8 % (18.3-44.2); Mean Corpuscular HGB Conc 33.5 g/dl (32-36); Mean Corpuscular Volume 89.5 fl (80-100); Mean Platelet Volume 10.7 fl (7.4-10.4); Monocytes Absolute Auto 0.6 K/mm3 (0.1-0.6); Monocytes Percent Auto 6.7 % (2.6-8.5); Neutrophils Absolute Auto 5.3 K/mm3 (1.3-6.7); Neutrophils Percent Auto 55.9 % (45.5-73.1); Platelet Count Result 290 k/mm3 (150-375); Red Cell Distribution Width 13.3 % (11.5-14.5); White Blood Count 9.5 K/mm3 (4.5-10.0)
[2021-04-06 14:48] LABS: INR 1.1; Prothrombin Time 14.4 Seconds (11.1-14.7)
[2021-04-06 14:49] LABS: Partial Thromboplastin Time 30.9 SECONDS (22.3-36.8)
[2021-04-06 14:51] LABS: Anion Gap 8 mmol/L (8-16); Blood Urea Nitrogen 13 mg/dL (7-17); Calcium 10.7 mg/dL (8.4-10.2); Carbon Dioxide 28 mmol/L (22-30); Chloride 101 mmol/L (98-107); Estimated Glomerular Filt Rate > 60; Glucose 147 mg/dL (65-105); Potassium 4.3 mmol/L (3.4-5.0); Sodium 137 mmol/L (137-145)
[2021-04-06 15:03] LABS: Troponin I < 0.012 ng/mL (0.000-0.034)
[2021-04-06 16:23] LABS: NT Pro B Type Natriuretic Pept 116 pg/mL (5-100)
[2021-04-06 16:30] VITALS: BP 150/76; PULSE 76; RESP 18; TEMP 37; O2SAT 99
[2021-04-06 16:34] VITALS: PULSE 74; O2SAT 100
--- NOTE | 2021-04-06 16:58 | ED.CHESTPAIN ---
HPI - Chest Pain General Chief Complaint: Chest Pain Stated Complaint: chest pain Time Seen by Provider: 04/06/21 15:40 Source: patient, family and RN notes reviewed Mode of arrival: ambulatory Limitations: no limitations History of Present Illness HPI narrative: Patient is a 75-year-old female who presents with epigastric chest pressure that radiates up to her throat has been intermittent for 1 month patient also notes associated belching patient notes history of anxiety and was concerned given that she had recent pacemaker placement for bradycardia 6 months ago patient denies chest pain shortness of breath currently notes that she does get occasional shortness of breath. Patient denies URI symptoms or other complaints and on arrival notes minimal discomfort in the epigastrium Related Data Home Medications Medication Instructions Recorded Confirmed calcium carbonate 600 mg calcium 1,200 mg PO DAILY 09/26/19 01/20/21 (1,500 mg) tablet lutein 6 mg capsule 6 mg PO DAILY 09/26/19 01/20/21 Xiidra 1 drp OPHTHALMIC (EYE) Q12H 10/26/20 01/20/21 esomeprazole magnesium [Nexium] 40 mg PO DAILY 10/26/20 01/20/21 metformin 1,000 mg PO BID 10/26/20 01/20/21 cyclosporine [Restasis MultiDose] drp 04/06/21 Allergies Allergy/AdvReac Type Severity Reaction Status Date / Time acetaminophen Allergy Intermediate Nausea and Verified 04/06/21 18:25 Vomiting hydrocodone Allergy Intermediate Nausea and Verified 04/06/21 18:25 Vomiting aspirin AdvReac Intermediate Gastrointestinal Verified 04/06/21 18:25 Upset Review of Systems Review of Systems: All systems reviewed & are unremarkable except as noted in HPI and below PMFSH Past Medical History Medical History Bilateral low back pain with right-sided sciatica Carotid stenosis, bilateral Cerebrovascular disease, unspecified Cerumen impaction Chronic left shoulder pain Chronic right shoulder pain Diabetes mellitus type 2 with neurological manifestations Encounter for screening mammogram for malignant neoplasm of breast Essential (primary) hypertension Facial pressure Gastro-esophageal reflux disease without esophagitis Headache Hormone replacement therapy (postmenopausal) Hyperlipidemia LDL goal <70 IBS (irritable bowel syndrome) Lung nodule Nontoxic multinodular goiter Osteoporosis Polyosteoarthritis, unspecified Type 2 diabetes mellitus with hyperglycemia Surgical History Surgical History S/P placement of cardiac pacemaker placed 10/28/2020 Family History Family History Mother Hypertension Family history of diabetes mellitus in first degree relative Family history of chronic obstructive pulmonary disease Patient's mother is Diabetes mellitus Sibling Hypertension Diabetes mellitus Father Family history of malignant neoplasm Family history of coronary artery disease Social History Social History Smoking status: Never smoker Alcohol intake: never Substance use: never Substance use type: does not use Gender identity (if verbalized by the patient): Female Spiritual care concerns: No Exam Narrative: Exam Narrative: GENERAL: Well-appearing, well-nourished, and in no acute distress. HEAD: Normocephalic, atraumatic. EYES: PERRLA and EOMI. ENT: Nares clear, no rhinorrhea or epistaxis. Mucous membranes moist. CHEST: Clear to auscultation. No respiratory distress. No wheezes rales or rhonchi HEART: Regular rate and rhythm. No murmur heard. Normal peripheral pulses. ABDOMEN: Soft, nontender, nondistended, normal active bowel sounds. EXTREMITIES: Normal range of motion. No edema. SKIN: Warm, dry, no rash. NEURO: No focal deficits. Alert and oriented x3. PSYCH: Normal mood and affect. Course Course Emergenc
[2021-04-06] MEDS: MAG HYDROX/AL HYDROX/SIMETH 30 ML UDC PO (17:13)
[2021-04-06] MEDS: LIDOCAINE HCL 2% VISC SOLN 15 ML UDC 20 ML PO (17:14)
[2021-04-06] MEDS: HYOSCYAMINE SULFATE 0.125 MG TABLET PO (17:15)
[2021-04-06 17:17] VITALS: BP 140/97; PULSE 76; RESP 16; TEMP 36.8; O2SAT 95
[2021-04-06 18:22] VITALS: BP 148/81; PULSE 72; RESP 18; TEMP 36.9; O2SAT 99
[2021-04-06 18:26] LABS: Troponin I < 0.012 ng/mL (0.000-0.034)
[2021-04-06 19:25] VITALS: BP 148/66; PULSE 65; RESP 17; O2SAT 98
== END 2021-04-06 19:25 | disposition home or self-care (01) ==
PROVIDERS: Emergency Medicine; Emergency Medicine Emergency Medical Services; Emergency Provider Emergency Medicine; PCP Internal Medicine
DX: R07.9 Chest pain, unspecified (principal); I65.23 Occlusion and stenosis of bilateral carotid arteries; I10 Essential (primary) hypertension; E11.9 Type 2 diabetes mellitus without complications; K21.9 Gastro-esophageal reflux disease without esophagitis; E78.5 Hyperlipidemia, unspecified; M81.0 Age-related osteoporosis without current pathological fracture; Z95.0 Presence of cardiac pacemaker; R06.02 Shortness of breath
CPT/HCPCS: 36415; 71046; 80048; 83880; 84484; 85025; 85610; 85730; 93005; 99284; A9270

== ENCOUNTER 2021-04-25 06:58 | Outpatient (CLI) | payer MEDICARE, SELFPAY ==
[2021-04-25 07:39] LABS: Hematocrit 35.5 % (37.0-47.0); Hemoglobin 11.9 g/dL (12.0-15.0)
[2021-04-25 07:55] LABS: Alanine Aminotransferase 14 U/L (4-35); Albumin Level 4.3 g/dL (3.5-5.1); Alkaline Phosphatase 59 U/L (38-126); Anion Gap 11 mmol/L (8-16); Aspartate Amino Transferase 22 U/L (14-36); Bilirubin,Total 0.3 mg/dL (0.2-1.3); Blood Urea Nitrogen 16 mg/dL (7-17); Calcium 10.3 mg/dL (8.4-10.2); Carbon Dioxide 25 mmol/L (22-30); Chloride 106 mmol/L (98-107); Cholesterol 193 mg/dL (0-200); Estimated Glomerular Filt Rate > 60; Glucose 148 mg/dL (65-105); HDL Direct 81 mg/dL; Potassium 4.2 mmol/L (3.4-5.0); Sodium 142 mmol/L (137-145); Triglycerides 51 mg/dL (<150)
[2021-04-25 08:01] LABS: Hemoglobin A1C 6.9 % (<5.7)
[2021-04-25 08:08] LABS: LDL Cholesterol Direct 67 mg/dL
[2021-04-25 11:26] LABS: Creatinine Urine 66.6 mg/dL
[2021-04-25 12:50] LABS: MALB Creatinine Ratio < 9.0 mg/g (0-30); Microalbumin Urine Random < 6.0 mg/L (0-16.7)
== END 2021-04-25 06:59 | disposition home or self-care (01) ==
LOC: ANHLAB 07:04
PROVIDERS: PCP Internal Medicine; Visit Provider Internal Medicine
DX: E11.65 Type 2 diabetes mellitus with hyperglycemia (principal); I10 Essential (primary) hypertension; D64.9 Anemia, unspecified; E78.5 Hyperlipidemia, unspecified
CPT/HCPCS: 36415; 80053; 80061; 82043; 83036; 85014; 85018

== ENCOUNTER 2021-04-29 13:51 | Outpatient (CLI) | payer MEDICARE, SELFPAY ==
--- NOTE | ~2021-04-29 | XR_ITS ---
XR lumbar spine 2-3V 04/29/2021 14:13 Indication: Low back pain Procedure: 3 views lumbar spine Comparison: 10/11/2015 Findings: There is dextroscoliosis of the lumbar spine centered at L2. There is disc narrowing at all lumbar levels with the exception of L4-5. There is prominent marginal osteophytes at multiple levels . There is facet hypertrophy at L4-5 and L5-S1. No acute fracture or traumatic malalignment. Impression: 1: Severe lumbar spondylosis with dextroscoliosis. Reviewed, dictated and finalized at location B. Impression: 1: Severe lumbar spondylosis with dextroscoliosis.
--- NOTE | ~2021-04-29 | XR_ITS ---
EXAMINATION: XR hip RT min 2V DATE: 04/29/2021 14:13 INDICATION: Right hip pain. TECHNIQUE: 2 views of right hip were obtained. COMPARISON: None. FINDINGS: Bone alignment is normal. No fracture. Right hip joint space is normal. IMPRESSION: 1. Normal right hip. Reviewed, dictated and finalized at location A. IMPRESSION: 1. Normal right hip.
[2021-04-29 19:12] LABS: Calcium 10.4 mg/dL (8.4-10.2)
[2021-04-29 19:24] LABS: Parathyroid Intact 42.9 pg/mL (7.5-53.5)
== END 2021-04-29 13:52 | disposition home or self-care (01) ==
PROVIDERS: PCP Internal Medicine; Referring Provider Internal Medicine; Visit Provider Nurse Practitioner
DX: M25.551 Pain in right hip (principal); E83.52 Hypercalcemia; M47.896 Other spondylosis, lumbar region
CPT/HCPCS: 36415; 72100; 73502; 82310; 83970

== ENCOUNTER 2021-06-03 13:53 | Outpatient (CLI) | payer MEDICARE, SELFPAY ==
--- NOTE | ~2021-06-03 | CT_ITS ---
EXAMINATION: CT lumbar spine [facility] EXAM DATE: 06/03/2021 14:22 INDICATION: M54.5 - Low back pain after fall, initial encounter.. TECHNIQUE: Spiral CT of the lumbar spine was performed without contrast. Axial, coronal and sagittal images lumbar spine were reviewed. The dose-length product (DLP) for this examination was 528.84 mG y-cm. The exposure was tailored according to patient size (auto mA exposure control), and iterative reconstruction (ASIR) was used as additional dose reduction technique. There is no prior study for comparison. FINDINGS: There is moderate to severe loss of the L2-3 and L3-4 disc height, moderate at L1-2. There is 3 mm retrolisthesis L2 on L3. Sacroiliac joints are intact. Mild lumbar levoscoliosis. The vertebr al bodies are otherwise aligned in the AP dimension. There are no acute fractures identified. No spon dylolysis. Level by level evaluation: T12-L1: Disc does not extend beyond the endplate margin. Facet arthropathy: Mild. Neural foraminal stenosis: No stenosis. Central canal stenosis: No stenosis. L1-L2: There is a mild diffuse disc bulge. Facet arthropathy: Mild. Neural foraminal stenosis: Mild left. Central canal stenosis: No stenosis. L2-L3: There is a moderate diffuse disc bulge. Facet arthropathy: Moderate. Neural foraminal stenosis: Moderate right, mild to moderate left. Central canal stenosis: Moderate. L3-L4: There is a moderate diffuse disc bulge. Facet arthropathy: Moderate. Neural foraminal stenosis: Moderate right, mild left. Central canal stenosis: Mild to moderate. L4-L5: There is a moderate diffuse disc bulge. Facet arthropathy: Moderate to severe. Neural foraminal stenosis: Mild to moderate bilateral. Central canal stenosis: Mild to moderate. L5-S1: There is a mild diffuse disc bulge. Facet arthropathy: Severe right, moderate to severe left. Neural foraminal stenosis: Mild to moderate bilateral. Central canal stenosis: No stenosis. IMPRESSION: 1. No acute lumbosacral fracture suspected. 2. Moderate to severe mid lumbar disc disease and lower lumbar facet arthropathy. Reviewed, dictated and finalized at location G. IMPRESSION: 1. No acute lumbosacral fracture suspected. 2. Moderate to severe mid lumbar disc disease and lower lumbar facet arthropat hy.
== END 2021-06-03 13:54 | disposition home or self-care (01) ==
LOC: ANHIMG 14:02
PROVIDERS: PCP Internal Medicine; Visit Provider Internal Medicine
DX: M51.36 Other intervertebral disc degeneration, lumbar region (principal)
CPT/HCPCS: 72131

== ENCOUNTER 2021-06-20 14:41 | Outpatient (CLI) | payer MEDICARE, SELFPAY ==
[2021-06-20 15:27] LABS: Add Urine Microscopic? NO; Appearance Urine Clear (Clear); Bilirubin Urine Negative (Negative); Blood Urine Negative (Negative); Color Urine Straw (Yellow); Glucose Urine UA Negative (Negative); Ketones Urine Negative (Negative); Leukocyte Esterase Ur Negative LEU/UL (Negative); Nitrate Urine Negative (Negative); Protein Urine Negative (Negative); Specific Grav Ur 1.005 (1.001-1.035); Urobilinogen Urine Negative mg/dL (<2.0)
== END 2021-06-20 14:42 | disposition home or self-care (01) ==
PROVIDERS: PCP Internal Medicine; Visit Provider Nurse Practitioner
DX: R30.0 Dysuria (principal)
CPT/HCPCS: 81003

== ENCOUNTER 2021-07-27 07:05 | Outpatient (CLI) | payer MEDICARE, SELFPAY ==
[2021-07-27 09:03] LABS: Hemoglobin A1C 7.1 % (<5.7)
== END 2021-07-27 07:06 | disposition home or self-care (01) ==
PROVIDERS: PCP Internal Medicine; Visit Provider Nurse Practitioner
DX: E11.65 Type 2 diabetes mellitus with hyperglycemia (principal)
CPT/HCPCS: 36415; 83036

== ENCOUNTER 2021-09-26 13:00 | Outpatient (CLI) | payer MEDICARE, SELFPAY ==
--- NOTE | ~2021-09-26 | US_ITS ---
EXAMINATION: US thyroid EXAM DATE: 09/26/2021 13:31 INDICATION: E04.2 - Nontoxic multinodular goiter. TECHNIQUE: Multiple grayscale and Doppler images of the thyroid were obtained (by a technologist who performed the scan) and subsequently reviewed. Individual nodules and recommendations may be reporte d in accordance with TI-RADS system as designated by the 2017 ACR White Paper TI-RADS committee. Comp lauryson is made to prior examination from 09/13/2020, 02/21/2016. FINDINGS: The right thyroid lobe measures 3.9 x 2.0 x 1.0 cm, the left measuring 3.5 x 1.3 x 1.0 cm. Several alves bcentimeter thyroid nodules unchanged, consistent with benign histology. Return to clinical follow-up and if additional palpable abnormality develops a follow-up ultrasound can be considered. IMPRESSION: Small stable thyroid nodules not likely clinically significant. Reviewed, dictated and finalized at location A. TAMPER
--- NOTE | ~2021-09-26 | US_ITS ---
EXAMINATION: US carotid duplex BI DATE: 09/26/2021 13:32 INDICATION: Carotid occlusion. Stenosis. TECHNIQUE: Grayscale, color Doppler, and pulsed Doppler images of the cervical carotid arteries were obtained. The degree of vessel stenosis is placed in one of the following categories: normal, <50%, 5 0-69%, >=70% but less than near-occlusion, near-occlusion, or total occlusion. Note that percent sten osis relative to normal distal artery lumen diameter is indirectly measured from velocity measurement s as described by Camron, et al. Radiology 2003; [id number]. Notes: Normal: Peak systolic velocity <125 centimeters/sec and no plaque <50%. Peak systolic velocity <125 ( EDV <40; ICA/CCA PSV ratio <2.0; used these factors only a tandem lesions or low cardiac output or co ntralateral disease) 50-69 %: PSV 125-230 (EDV 40-100; ratio 2-4) >= 70% but less than near occlusion: PSV greater than 230 (EDV > 100; ratio> 4.0) Near Occlusion: PSV that is variable; markedly narrowed lumen Occlusion: Absent flow on color/spectral Doppler and no lumen on montero scale. COMPARISON: 09/13/2020. FINDINGS: RIGHT: The right common carotid artery (CCA) peak systolic velocity (PSV) is 63 cm/s. The right internal car otid artery (ICA) PSV is 38 cm/s. The right ICA end-diastolic velocity (EDV) is 12 cm/s. The right IC A/CCA PSV ratio is 0.6. The external carotid artery (ECA) PSV is 69 cm/s. There is antegrade flow in the right vertebral artery. LEFT: The left CCA PSV is 81 cm/s. The left ICA PSV is 54 cm/s. The left ICA EDV is 17 cm/s. The left ICA/C CA PSV ratio is 0.7. The ECA PSV is 68 cm/s. There is antegrade flow in the left vertebral artery. IMPRESSION: 1. Less than 50% stenosis in the right internal carotid artery by sonographic criteria. 2. Less than 50% stenosis in the left internal carotid artery by sonographic criteria. Reviewed, dictated and finalized at location A. PRESS OPERATOR IMPRESSION: 1. Less than 50% stenosis in the right internal carotid artery by sonographic c deep. 2. Less than 50% stenosis in the left internal carotid artery by sonographic cr jaret.
== END 2021-09-26 13:01 | disposition home or self-care (01) ==
LOC: ANHIMG 13:01
PROVIDERS: PCP Internal Medicine; Visit Provider Internal Medicine
DX: I65.23 Occlusion and stenosis of bilateral carotid arteries (principal); E04.2 Nontoxic multinodular goiter
CPT/HCPCS: 76536; 93880

== ENCOUNTER 2021-10-11 01:15 | Day surgery (SDC) | payer MEDICARE, SELFPAY ==
[2021-09-30 10:53] VITALS: BMI 27.1
[2021-10-11 09:58] VITALS: BP 134/66; PULSE 69; RESP 16; TEMP 36.7; O2SAT 100; BMI 27.6
--- NOTE | 2021-10-11 10:19 | WPDANESEPPF ---
Anes - Initial Pre Proc Eval Procedure: Operation Date: 10/11/21 11:30 Proposed Procedures p Esophagogastroduodenoscopy - Todd Lopez MD Date/Time: 10/11/21 10:19 Surgeon: Todd Lopez MD Pre Op Diagnosis: nausea Patient Data Age: 76 Gender: F Height: 1.45 m Weight: 58 kg Last Vital Signs Temp 36.7 C 10/11/21 09:58 Pulse 69 10/11/21 09:58 Resp 16 10/11/21 09:58 BP 134/66 10/11/21 09:58 Pulse Ox 100 10/11/21 09:58 Allergies Allergy/AdvReac Type Severity Reaction Status Date / Time acetaminophen Allergy Intermediate Nausea and Verified 10/11/21 10:12 Vomiting hydrocodone Allergy Intermediate Nausea and Verified 10/11/21 10:12 Vomiting aspirin AdvReac Intermediate Gastrointestinal Verified 10/11/21 10:12 Upset Home Medications Medication Instructions Recorded Confirmed Type calcium carbonate 600 mg calcium 1,200 mg PO DAILY 09/26/19 10/11/21 History (1,500 mg) tablet flash glucose sensor #1 ea 11/11/20 10/11/21 Rx cyclosporine [Restasis MultiDose] 1 drp EACH EYE DAILY 04/06/21 10/11/21 History esomeprazole magnesium 40 mg 40 mg PO BID #30 cap 05/31/21 10/11/21 Rx capsule,delayed release tramadol 50 mg tablet 50 mg PO Q8H PRN #90 tablet 06/01/21 10/11/21 Rx lancets #100 ea 07/11/21 10/11/21 Rx losartan 100 mg tablet See Rx Instructions .ROUTE 08/23/21 10/11/21 Rx .COMPLEX #90 tablet metformin 500 mg tablet 1,000 mg PO BID #180 tablet 08/23/21 10/11/21 Rx sitagliptin 100 mg tablet 100 mg PO DAILY #90 tablet 08/25/21 10/11/21 Rx amlodipine 10 mg tablet See Rx Instructions .ROUTE 10/07/21 10/11/21 Rx .COMPLEX #90 tablet Patient hx anesthesia problems: none Family hx anesthesia problems: none Results Review: All pre-operative results and documents have been reviewed as part of the pre-operative evaluation. [facility] Past Medical History Medical History Bilateral low back pain with right-sided sciatica Carotid stenosis, bilateral Cerebrovascular disease, unspecified Cerumen impaction Chronic left shoulder pain Chronic right shoulder pain Diabetes mellitus type 2 with neurological manifestations Encounter for screening mammogram for malignant neoplasm of breast Essential (primary) hypertension Facial pressure Gastro-esophageal reflux disease without esophagitis Headache Hormone replacement therapy (postmenopausal) Hyperlipidemia LDL goal <70 IBS (irritable bowel syndrome) Lung nodule Nontoxic multinodular goiter Osteoporosis Polyosteoarthritis, unspecified Type 2 diabetes mellitus with hyperglycemia Surgical History Surgical History S/P placement of cardiac pacemaker placed 10/28/2020 Family History Family History Mother Hypertension Family history of diabetes mellitus in first degree relative Family history of chronic obstructive pulmonary disease Patient's mother is Diabetes mellitus Sibling Hypertension Diabetes mellitus Father Family history of malignant neoplasm Family history of coronary artery disease Social History Social History Smoking status: Never smoker Alcohol intake: current Alcohol use details: seldom rare etoh use Substance use: never Substance use type: does not use Living arrangements: with family Gender identity (if verbalized by the patient): Female Sexual Orientation (if Verbalized by the Patient): Straight or Heterosexual Spiritual care concerns: No Anes - Eval Final PreProcedure Day of Procedure 10/11/21 10:19 Patient weight: overweight Heart: regular rate and rhythm Lungs: clear to auscultation Airway: Mallampati scale class II Neurological: alert and oriented Last oral intake: >/= 8 hours ASA classification: III Emergent: no Anesthetic plan: proceed
[2021-10-11] MEDS: LACTATED RINGERS 1,000 ML 150 ML IV CONT (10:24)
[2021-10-11 10:28] LABS: Glucose Point of Care 115 mg/dl (65-105)
--- NOTE | 2021-10-11 10:48 | WPDGICN ---
Assessment and Plan Assessment and plan (1) GERD (gastroesophageal reflux disease): Code(s): K21.9 - Gastro-esophageal reflux disease without esophagitis Status: Acute Assessment and Plan: Patient gives a longstanding history of GE reflux with associated symptoms that include substernal fullness in throat burning. Plan is for EGD to assess more thoroughly. She seems to have a poor response to Nexium 40mg p.o. daily at present. (2) IBS (irritable bowel syndrome): Code(s): K58.9 - Irritable bowel syndrome without diarrhea Status: Acute Assessment and Plan: Patient has a longstanding history of irritable bowel syndrome fi (3) History of colon polyps: Code(s): Z86.010 - Personal history of colonic polyps Status: Acute Assessment and Plan: Colon polyps were identified removed from the colon 2019. Consider follow-up colonoscopy at 5 year intervals in the future. (4) Pacemaker: Code(s): Z95.0 - Presence of cardiac pacemaker Status: Acute (5) Type 2 diabetes mellitus with hyperglycemia: Code(s): E11.65 - Type 2 diabetes mellitus with hyperglycemia Status: Acute Assessment and Plan: Patient has a longstanding history of diabetes mellitus. This raises the question of underlying gastroparesis. GI Consult Note Consult date/time: 10/11/21 10:48 HPI: Linh Mc is a 76 year old female Presents for EGD. patient reports a long history of acid reflux disease. She states many years ago had an EGD that was unremarkable. At 1 time she was told she had an H pylori infection but denies ever being told she had an ulcer. She has been maintained on Nexium 40mg p.o. daily. She states 1 year ago she had a pacemaker implanted. Over the last 1 year she has had substernal fullness and throat burning. She attributes this to her acid reflux. She states she eats without difficulty. Denies any weight loss. She has had no bleeding. Past medical history is significant for diabetes that she has had for many years. Most recently she was seen by our service and had a colon polyp in 2019. Review of Systems Review of Systems: All systems reviewed & are unremarkable except as noted in HPI and below PMFSH Past Medical History Medical History Bilateral low back pain with right-sided sciatica Carotid stenosis, bilateral Cerebrovascular disease, unspecified Cerumen impaction Chronic left shoulder pain Chronic right shoulder pain Diabetes mellitus type 2 with neurological manifestations Encounter for screening mammogram for malignant neoplasm of breast Essential (primary) hypertension Facial pressure Gastro-esophageal reflux disease without esophagitis Headache Hormone replacement therapy (postmenopausal) Hyperlipidemia LDL goal <70 IBS (irritable bowel syndrome) Lung nodule Nontoxic multinodular goiter Osteoporosis Polyosteoarthritis, unspecified Type 2 diabetes mellitus with hyperglycemia Surgical History Surgical History S/P placement of cardiac pacemaker placed 10/28/2020 Family History Family History Mother Hypertension Family history of diabetes mellitus in first degree relative Family history of chronic obstructive pulmonary disease Patient's mother is Diabetes mellitus Sibling Hypertension Diabetes mellitus Father Family history of malignant neoplasm Family history of coronary artery disease Social History Social History Smoking status: Never smoker Alcohol intake: current Alcohol use details: seldom rare etoh use Substance use: never Substance use type: does not use Living arrangements: with family Gender identity (if verbalized by the patient): Female Sexual Orientation (if Verbalized by
[2021-10-11 11:47] VITALS: BP 132/65; PULSE 60; RESP 13; O2SAT 100
[2021-10-11 11:57] VITALS: BP 139/77; PULSE 64; RESP 23; O2SAT 100
[2021-10-11 12:07] VITALS: BP 135/75; PULSE 60; RESP 17; O2SAT 100
== END 2021-10-11 12:15 | disposition home or self-care (01) ==
PROVIDERS: PCP Internal Medicine; Visit Provider Internal Medicine Gastroenterology
PROC: 0DJ08ZZ Inspection of Upper Intestinal Tract, Via Natural or Artificial Opening Endoscopic (ICD-10-PCS; CPT 43235; principal; 2021-10-11 11:30)
DX: K21.9 Gastro-esophageal reflux disease without esophagitis (principal); K22.89 Other specified disease of esophagus; K58.9 Irritable bowel syndrome, unspecified; I65.23 Occlusion and stenosis of bilateral carotid arteries; I10 Essential (primary) hypertension; E11.65 Type 2 diabetes mellitus with hyperglycemia; E11.40 Type 2 diabetes mellitus with diabetic neuropathy, unspecified; E04.2 Nontoxic multinodular goiter; E78.5 Hyperlipidemia, unspecified; M81.0 Age-related osteoporosis without current pathological fracture; Z95.0 Presence of cardiac pacemaker; Z86.010 Personal history of colon polyps
CPT/HCPCS: 43239; 82948; 87081; J2704; J7120

== ENCOUNTER 2021-11-04 14:31 | Outpatient (CLI) | payer MEDICARE, SELFPAY ==
--- NOTE | ~2021-11-04 | XR_ITS ---
XR hip BI 2V w AP pelvis DATE: 11/04/2021 15:09 INDICATION: Pelvic and perineal pain following fall 6 weeks ago TECHNIQUE: AP pelvis. AP and lateral views of each hip. COMPARISON: 04/29/2011 right hip 09/12/2019 pelvis and left hip FINDINGS: No pelvic fracture or bone destruction is detected. Normal alignment at the pubic symphysis and sacroiliac joints. Hip joint spaces are symmetric and relatively preserved. No recent fracture o r dislocation, avascular necrosis or bone destruction of either hip is detected. IMPRESSION: No significant abnormality Reviewed, dictated and finalized at location A. IDE CUTTER IMPRESSION: No significant abnormality
--- NOTE | ~2021-11-04 | XR_ITS ---
XR lumbar spine 2-3V DATE: 11/04/2021 15:09 INDICATION: Fall 6 weeks ago. Low back pain. TECHNIQUE: AP, lateral, cone-down lateral lumbosacral views COMPARISON: 06/03/2021 CT lumbar spine 04/29/2021 lumbar spine FINDINGS: There is diffuse osteopenia. There is degenerative spurring of the lower thoracic spine. There is rotatory dextroscoliosis of the lower thoracic and lumbar spine. There is multilevel severe degenerative disc disease at L1-2 and particularly L2-3 and L3-4 and moder ate degenerative disc disease at L4-5.. There is associated minimal retrolisthesis at L2-3. There is degenerative change at the apophyseal joints with associated minimal grade 1 anterolisthesis at L4-5. No fracture or bone destruction is detected. The lumbar pedicles are intact. The sacroiliac joints are intact. Status post cholecystectomy Right atrial and right ventricular pacemaker leads IMPRESSION: Rotatory scoliosis and multilevel degenerative disc disease Reviewed, dictated and finalized at location A. GRAPHIC TYPEWRITER OPERATOR
== END 2021-11-04 14:32 | disposition home or self-care (01) ==
LOC: ANHIMG 14:34
PROVIDERS: PCP Internal Medicine; Visit Provider Internal Medicine
DX: R10.2 Pelvic and perineal pain (principal); M51.36 Other intervertebral disc degeneration, lumbar region
CPT/HCPCS: 72100; 73521

== ENCOUNTER 2021-11-07 06:40 | Outpatient (CLI) | payer MEDICARE, SELFPAY ==
[2021-11-07 07:38] LABS: Alanine Aminotransferase 18 U/L (4-35); Albumin Level 4.5 g/dL (3.5-5.1); Alkaline Phosphatase 54 U/L (38-126); Anion Gap 5 mmol/L (8-16); Aspartate Amino Transferase 26 U/L (14-36); Bilirubin,Total 0.4 mg/dL (0.2-1.3); Blood Urea Nitrogen 13 mg/dL (7-17); Carbon Dioxide 29 mmol/L (22-30); Chloride 102 mmol/L (98-107); Cholesterol 181 mg/dL (0-200); Estimated Glomerular Filt Rate > 60; Glucose 149 mg/dL (65-110); HDL Direct 78 mg/dL; Potassium 4.2 mmol/L (3.4-5.0); Sodium 136 mmol/L (137-145); Triglycerides 85 mg/dL (<150)
[2021-11-07 07:49] LABS: LDL Cholesterol Direct 73 mg/dL
[2021-11-07 08:00] LABS: Hemoglobin A1C 6.8 % (<5.7)
== END 2021-11-07 06:41 | disposition home or self-care (01) ==
LOC: ANHLAB 06:46
PROVIDERS: PCP Internal Medicine; Visit Provider Internal Medicine
DX: E11.65 Type 2 diabetes mellitus with hyperglycemia (principal); E78.5 Hyperlipidemia, unspecified; I10 Essential (primary) hypertension
CPT/HCPCS: 36415; 80053; 80061; 83036

== ENCOUNTER 2021-11-08 15:08 | Outpatient (CLI) | payer MEDICARE, SELFPAY ==
--- NOTE | ~2021-11-08 | MM_ITS ---
EXAMINATION: MM screening babs BI w christiano HISTORY: Screening mammogram TECHNIQUE: Craniocaudal and mediolateral oblique 3-D tomosynthesis images were obtained and synthetic 2-D images were generated. CAD analysis was submitted and interpreted. COMPARISON: 09/13/2020, 09/11/2019, 09/06/2018 bilateral screening mammogram examinations BREAST PARENCHYMAL COMPOSITION: The breasts are almost entirely fatty. FINDINGS: Scattered benign calcifications are again noted, more numerous on the left. There is no norm dence of suspicious mass, calcification, or architectural distortion to suggest malignancy in either breast. There has been no suspicious interval change. IMPRESSION: 1. No mammographic evidence of malignancy. 2. Recommend routine screening mammography in one year. BI-RADS Category 2: Benign finding(s). Reviewed, dictated and finalized at location B. STANT IMPORT MANAGER
== END 2021-11-08 15:09 | disposition home or self-care (01) ==
LOC: ANHIMG 15:10
PROVIDERS: PCP Internal Medicine; Visit Provider Internal Medicine
DX: Z12.31 Encounter for screening mammogram for malignant neoplasm of breast (principal)
CPT/HCPCS: 77063; 77067

== ENCOUNTER 2021-12-16 13:45 | Outpatient (CLI) | payer MEDICARE, SELFPAY ==
[2021-12-16 18:55] LABS: Add Urine Microscopic? NO; Appearance Urine Clear (Clear); Bilirubin Urine Negative (Negative); Blood Urine Negative (Negative); Color Urine Colorless (Yellow); Glucose Urine UA Negative (Negative); Ketones Urine Negative (Negative); Leukocyte Esterase Ur Negative LEU/UL (Negative); Nitrate Urine Negative (Negative); Protein Urine Negative (Negative); Urobilinogen Urine Negative mg/dL (<2.0)
[2021-12-16 18:59] LABS: Specific Grav Ur 1.002 (1.001-1.035)
== END 2021-12-16 13:46 | disposition home or self-care (01) ==
LOC: ANHLAB 13:48
PROVIDERS: PCP Internal Medicine; Visit Provider Nurse Practitioner
DX: R39.9 Unspecified symptoms and signs involving the genitourinary system (principal)
CPT/HCPCS: 81003

== ENCOUNTER 2021-12-26 14:58 | Outpatient (CLI) | payer MEDICARE, SELFPAY ==
--- NOTE | ~2021-12-26 | XR_ITS ---
XR thoracic spine 3V DATE: 12/26/2021 15:17 INDICATION: Fall 8 months ago; right sided upper back pain, right arm pain TECHNIQUE: AP, lateral, swimmer views COMPARISON: None FINDINGS: There is mild levoscoliosis of the thoracic spine. Diffuse osteopenia. No fracture or dislocation or bone destruction of the thoracic spine. There is degenerative spurring. No paraspinal soft tissue thickening. The thoracic pedicles are intact. There is anterior cervical spine surgical fusion at C4-6. There is mild anterolisthesis at C2-3 and C6-7. A glenohumeral joint replacement is noted. Left transvenous pacemaker device with leads overlying right atrium and right ventricle. Status post cholecystectomy. IMPRESSION: Mild levoscoliosis Degenerative spurring Osteopenia Reviewed, dictated and finalized at location A. R FRAMER
== END 2021-12-26 14:59 | disposition home or self-care (01) ==
PROVIDERS: PCP Internal Medicine; Visit Provider Internal Medicine
DX: M54.9 Dorsalgia, unspecified (principal); M85.88 Other specified disorders of bone density and structure, other site
CPT/HCPCS: 72072

== ENCOUNTER 2022-02-27 14:50 | Emergency (ER) | payer MEDICARE, SELFPAY ==
[2022-02-27] VITALS (8 sets, daily range): BP systolic 132–161; BP diastolic 53–86; PULSE 61–81; RESP 13–20; TEMP 36.8; O2SAT 97–99
--- NOTE | ~2022-02-27 | XR_ITS ---
EXAMINATION: XR chest 2V Exam Date/Time: 02/27/2022 15:20 CDT CLINICAL HISTORY: DYSPNEA, SOB X 1 WEEK, PREV PACEMAKER, NO LUNG HX Comparison: 04/06/2021. RESULT: Lines, tubes, and devices: Left chest pacer, with intact leads that are stable in position. Partiall y visualized right shoulder arthroplasty hardware. Cholecystectomy clips. Intact cervical spine fusio n hardware. Lungs and pleura: Clear. Cardiomediastinal silhouette: Stable cardiomediastinal silhouette. Other: No acute osseous or upper abdominal finding. IMPRESSION: No acute cardiopulmonary process. Reviewed, dictated and finalized at location K.
--- NOTE | 2022-02-27 14:55 | ECG_ITS ---
Measurements Intervals [place] Rate: 75 P: 15 [place]: 231 QRS: -78 QRSD: 154 T: 85 QT: 419 QTc: 469 Interpretive Statements ELECTRONIC ATRIAL PACEMAKER WITH APPROPRIATE PACING AND SENSING ELECTRONIC VENTRICULAR PACEMAKER ABNORMAL RHYTHM ECG COMPARED TO ECG 04/06/2021 14:23:58 NO SIGNIFICANT CHANGES Electronically Signed On 02-27-2022 15:47:40 CDT by Baljeet Alvarez M.D.
[2022-02-27 15:15] LABS: Basophils Absolute Auto 0.1 K/mm3 (0.0-0.1); Basophils Percent Auto 0.5 % (0.2-1.2); Eosinophils Absolute Auto 0.2 K/mm3 (0-0.3); Eosinophils Percent Auto 1.5 % (0-4.4); Hemoglobin 12.4 g/dL (12.0-15.0); Immature Granulocyte Absolute 0.04 K/mm3 (0.00-0.031); Immature Granulocyte Percent A 0.4 % (0-0.5); Lymphocytes Absolute Auto 3.21 K/mm3 (0.9-3.2); Mean Corpuscular HGB Conc 31.8 g/dl (32-36); Mean Corpuscular Hemoglobin 29.9 pg (26-34); Mean Platelet Volume 10.1 fl (7.4-10.4); Monocytes Absolute Auto 0.7 K/mm3 (0.1-0.6); Monocytes Percent Auto 6.1 % (2.6-8.5); Neutrophils Absolute Auto 6.6 K/mm3 (1.3-6.7); Neutrophils Percent Auto 61.5 % (45.5-73.1); Platelet Count Result 278 k/mm3 (150-375); Red Blood Count 4.15 M/mm3 (4.2-5.4); Red Cell Distribution Width 13.2 % (11.5-14.5); White Blood Count 10.7 K/mm3 (4.5-10.0)
[2022-02-27 15:24] LABS: Alanine Aminotransferase 16 U/L (4-35); Albumin Level 4.9 g/dL (3.5-5.1); Alkaline Phosphatase 66 U/L (38-126); Anion Gap 11 mmol/L (8-16); Aspartate Amino Transferase 28 U/L (14-36); Bilirubin,Total 0.3 mg/dL (0.2-1.3); Blood Urea Nitrogen 12 mg/dL (7-17); Carbon Dioxide 24 mmol/L (22-30); Chloride 104 mmol/L (98-107); Estimated Glomerular Filt Rate > 60; Glucose 112 mg/dL (65-110); Potassium 3.7 mmol/L (3.4-5.0); Sodium 139 mmol/L (137-145)
[2022-02-27 15:36] LABS: Troponin I < 0.012 ng/mL (0.000-0.034)
--- NOTE | 2022-02-27 19:17 | PC.NURSE ---
called lab to add on BNP 19:18
--- NOTE | 2022-02-27 19:21 | ED.SOB ---
HPI - SOB/Dyspnea General Chief Complaint: Shortness of Breath/Dyspnea Stated Complaint: dyspnea Time Seen by Provider: 02/27/22 19:01 Source: patient History of Present Illness HPI Narrative: Presents with shortness of breath. Reports shortness of breath for the past 4 days stress notes that when laying flat. Straight leg reports that she came to the ER for further evaluation. Denies any chest pain cough congestion. Denies any nausea or vomiting she denies any known sick contacts. Related Data Home Medications Medication Instructions Recorded Confirmed calcium carbonate 600 mg calcium 1,200 mg PO DAILY 09/26/19 12/26/21 (1,500 mg) tablet cyclosporine [Restasis MultiDose] 1 drp EACH EYE DAILY 04/06/21 12/26/21 Allergies Allergy/AdvReac Type Severity Reaction Status Date / Time acetaminophen Allergy Intermediate Nausea and Verified 12/26/21 14:14 Vomiting hydrocodone Allergy Intermediate Nausea and Verified 12/26/21 14:14 Vomiting aspirin AdvReac Intermediate Gastrointestinal Verified 12/26/21 14:14 Upset Review of Systems Review of Systems: CONSTITUTIONAL: Denies fever, chills, or sweats. EYES: Denies visual changes, redness, or discharge. ENT: Denies rhinorrhea, congestion, sore throat, or otalgia. CARDIOVASCULAR: Denies chest pain, palpitations, or edema. RESPIRATORY: Denies cough. GASTROINTESTINAL: Denies abdominal pain, nausea, vomiting, or diarrhea. GENITOURINARY: Denies dysuria or hematuria. SKIN: Denies rash or itching. MUSCULOSKELETAL: Denies back pain, joint pain, or myalgia. NEUROLOGIC: Denies headache, numbness, dizziness, or weakness. PSYCHIATRIC: Denies anxiety or depression. All systems reviewed & are unremarkable except as noted in HPI and below PMFSH Past Medical History Medical History Bilateral low back pain with right-sided sciatica Carotid stenosis, bilateral Cerebrovascular disease, unspecified Cerumen impaction Chronic left shoulder pain Chronic right shoulder pain Diabetes mellitus type 2 with neurological manifestations Encounter for screening mammogram for malignant neoplasm of breast Essential (primary) hypertension Facial pressure Gastro-esophageal reflux disease without esophagitis Headache Hormone replacement therapy (postmenopausal) Hyperlipidemia LDL goal <70 IBS (irritable bowel syndrome) Lung nodule Nontoxic multinodular goiter Osteoporosis Polyosteoarthritis, unspecified Type 2 diabetes mellitus with hyperglycemia Surgical History Surgical History S/P placement of cardiac pacemaker placed 10/28/2020 Family History Family History Mother Hypertension Family history of diabetes mellitus in first degree relative Family history of chronic obstructive pulmonary disease Patient's mother is Diabetes mellitus Sibling Hypertension Diabetes mellitus Father Family history of malignant neoplasm Family history of coronary artery disease Social History Social History Smoking status: Never smoker Second hand tobacco smoke exposure: No Alcohol intake: current Alcohol use details: seldom rare etoh use Substance use: never Substance use type: does not use Gender identity (if verbalized by the patient): Female Sexual Orientation (if Verbalized by the Patient): Straight or Heterosexual Spiritual care concerns: No Exam Narrative: GENERAL: Well-appearing, well-nourished, and in no acute distress. HEAD: Normocephalic, atraumatic. EYES: PERRLA and EOMI. ENT: Nares clear, no rhinorrhea or epistaxis. Mucous membranes moist. NECK: Supple. No masses. No JVD CHEST: Clear to auscultation. No respiratory distress. No wheezes rales or rhonchi HEART: Regular rate and rhythm. No murmur heard. Normal peripheral pul
[2022-02-27 19:41] LABS: NT Pro B Type Natriuretic Pept 208 pg/mL (5-100)
[2022-02-27 20:15] LABS: Glucose Point of Care 161 mg/dl (65-105)
== END 2022-02-27 20:49 | disposition home or self-care (01) ==
PROVIDERS: Emergency Medicine; Emergency Provider Emergency Medicine; PCP Internal Medicine
DX: R06.01 Orthopnea (principal); E11.49 Type 2 diabetes mellitus with other diabetic neurological complication; I65.23 Occlusion and stenosis of bilateral carotid arteries; I10 Essential (primary) hypertension; K21.9 Gastro-esophageal reflux disease without esophagitis; E78.5 Hyperlipidemia, unspecified; K58.9 Irritable bowel syndrome, unspecified; M81.0 Age-related osteoporosis without current pathological fracture; M19.90 Unspecified osteoarthritis, unspecified site; Z95.0 Presence of cardiac pacemaker; Z79.84 Long term (current) use of oral hypoglycemic drugs
CPT/HCPCS: 36415; 71046; 80053; 82948; 83880; 84484; 85025; 93005; 99284

== ENCOUNTER 2022-05-04 07:04 | Outpatient (CLI) | payer MEDICARE, SELFPAY ==
[2022-05-04 07:43] LABS: Alanine Aminotransferase 18 U/L (6-35); Albumin Level 4.6 g/dL (3.5-5.1); Alkaline Phosphatase 62 U/L (38-126); Anion Gap 5 mmol/L (8-16); Aspartate Amino Transferase 25 U/L (14-36); Bilirubin,Total 0.3 mg/dL (0.2-1.3); Blood Urea Nitrogen 13 mg/dL (7-17); Calcium 9.7 mg/dL (8.4-10.2); Carbon Dioxide 30 mmol/L (22-30); Chloride 103 mmol/L (98-107); Cholesterol 185 mg/dL (0-200); Estimated Glomerular Filt Rate > 60; Glucose 160 mg/dL (65-110); HDL Direct 77 mg/dL; Potassium 4.2 mmol/L (3.4-5.0); Sodium 138 mmol/L (137-145); Triglycerides 104 mg/dL (<150)
[2022-05-04 07:47] LABS: Hemoglobin A1C 7.2 % (<5.7)
[2022-05-04 07:54] LABS: LDL Cholesterol Direct 70 mg/dL
== END 2022-05-04 07:05 | disposition home or self-care (01) ==
LOC: ANHLAB 07:06
PROVIDERS: PCP Internal Medicine; Visit Provider Internal Medicine
DX: E11.65 Type 2 diabetes mellitus with hyperglycemia (principal); I10 Essential (primary) hypertension; E78.5 Hyperlipidemia, unspecified
CPT/HCPCS: 36415; 80053; 80061; 83036

== ENCOUNTER 2022-05-26 13:07 | Outpatient (CLI) | payer MEDICARE, SELFPAY ==
[2022-05-26 14:28] LABS: Appearance Urine Clear (Clear); Bilirubin Urine Negative (Negative); Blood Urine Negative (Negative); Color Urine Yellow (Yellow); Glucose Urine UA Negative (Negative); Ketones Urine Negative (Negative); Leukocyte Esterase Ur Negative LEU/UL (Negative); Nitrate Urine Negative (Negative); Protein Urine Negative (Negative); Specific Grav Ur <= 1.005 (1.001-1.035); Urobilinogen Urine 0.2 mg/dL (<2.0); pH Urine 5.5 (5.0-9.0)
[2022-05-26 14:32] LABS: Add Urine Microscopic? NO
== END 2022-05-26 13:08 | disposition home or self-care (01) ==
LOC: ANHLAB 13:10
PROVIDERS: PCP Internal Medicine; Visit Provider Nurse Practitioner
DX: R30.0 Dysuria (principal)
CPT/HCPCS: 81003

== ENCOUNTER 2022-07-08 06:57 | Outpatient (CLI) | payer MEDICARE, SELFPAY ==
[2022-07-08 08:21] LABS: Basophils Percent Auto 0.5 % (0.2-1.2); Eosinophils Absolute Auto 0.1 K/mm3 (0-0.3); Hematocrit 34.3 % (37.0-47.0); Hemoglobin 10.9 g/dL (12.0-15.0); Immature Granulocyte Absolute 0.01 K/mm3 (0.00-0.031); Immature Granulocyte Percent A 0.2 % (0-0.5); Lymphocytes Absolute Auto 1.82 K/mm3 (0.9-3.2); Lymphocytes Percent Auto 30.4 % (18.3-44.2); Mean Corpuscular HGB Conc 31.8 g/dl (32-36); Mean Corpuscular Hemoglobin 29.1 pg (26-34); Mean Corpuscular Volume 91.7 fl (80-100); Mean Platelet Volume 10.8 fl (7.4-10.4); Monocytes Absolute Auto 0.4 K/mm3 (0.1-0.6); Monocytes Percent Auto 6.9 % (2.6-8.5); Neutrophils Absolute Auto 3.6 K/mm3 (1.3-6.7); Platelet Count Result 245 k/mm3 (150-375); Red Blood Count 3.74 M/mm3 (4.2-5.4); Red Cell Distribution Width 13.8 % (11.5-14.5)
[2022-07-08 08:38] LABS: Alanine Aminotransferase 15 U/L (6-35); Albumin Level 4.3 g/dL (3.5-5.1); Alkaline Phosphatase 74 U/L (38-126); Anion Gap 8 mmol/L (8-16); Aspartate Amino Transferase 22 U/L (14-36); Bilirubin,Total 0.4 mg/dL (0.2-1.3); Blood Urea Nitrogen 12 mg/dL (7-17); Carbon Dioxide 29 mmol/L (22-30); Chloride 100 mmol/L (98-107); Estimated Glomerular Filt Rate > 60; Glucose 147 mg/dL (65-110); Phosphorus 3.5 mg/dL (2.5-4.5); Potassium 3.8 mmol/L (3.4-5.0); Sodium 137 mmol/L (137-145)
[2022-07-08 09:14] LABS: Vitamin D 25 Hydroxy 32.9 ng/mL
[2022-07-08 09:28] LABS: Hemoglobin A1C 7.3 % (<5.7)
[2022-07-08 09:41] LABS: Parathyroid Intact 52.6 pg/mL (7.5-53.5)
[2022-07-08 09:43] LABS: Folic Acid 9.3 ng/mL (2.76->20)
[2022-07-11 03:21] LABS: Thyroid Peroxidase Antibodies 1 IU/mL (<9)
== END 2022-07-08 06:58 | disposition home or self-care (01) ==
PROVIDERS: PCP Internal Medicine; Referring Provider Nurse Practitioner; Visit Provider Internal Medicine Endocrinology, Diabetes & Metabolism
DX: E11.9 Type 2 diabetes mellitus without complications (principal); R53.83 Other fatigue; M81.0 Age-related osteoporosis without current pathological fracture
CPT/HCPCS: 36415; 80053; 82306; 82533; 82607; 82746; 83036; 83970; 84100; 84436; 84443; 84480; 85025; 86376

== ENCOUNTER 2022-10-02 11:54 | Emergency (ER) | payer MEDICARE, SELFPAY ==
--- NOTE | ~2022-10-02 | XR_ITS ---
XR ribs LT 2V w CXR 2V DATE: 10/02/2022 15:53 INDICATION: Left-sided rib pain after fall 2 weeks ago TECHNIQUE: AP and lateral views of the chest. 3 views of the left ribs. COMPARISON: 02/27/2022 2 view chest FINDINGS: Status post lower anterior cervical spine surgical fusion. Left-sided transvenous pacemaker device with leads overlying right atrium and right ventricle. There is diffuse osteopenia. Status post right glenohumeral joint replacement. Degenerative change of the thoracic and lumbar spine. No left rib fracture or bone destruction is evident. Heart size is within normal limits. Is aortic calcification and mild unfolding. No hilar or mediastin al enlargement. No pulmonary infiltrate or consolidation, pleural effusion or pulmonary vascular congestion or pneumo thorax. Status post cholecystectomy. IMPRESSION: No left rib fracture detected Osteopenia Status post lower anterior cervical spinal surgical fusion Status post right glenohumeral joint replacement Status post cholecystectomy No active cardiopulmonary disease Left-sided dual-lead transvenous pacemaker device Reviewed, dictated and finalized at location A. WASH ATTENDANT
--- NOTE | ~2022-10-02 | US_ITS ---
EXAMINATION: US venous doppler LE RT DATE: 10/02/2022 15:20 INDICATION: Right lower limb pain and swelling TECHNIQUE: Oreilly scale images without and with compression and Doppler images of the right lower extre mity veins were obtained. COMPARISON: 10/21/2020 FINDINGS: The right common femoral vein, profunda femoral vein, femoral vein, popliteal vein, peronea l trunk, posterior tibial veins, and greater saphenous vein are patent. IMPRESSION: 1. Patent right lower extremity veins. No evidence of deep venous thrombosis. Reviewed, dictated and finalized at location F. GER CONTACT
--- NOTE | ~2022-10-02 | XR_ITS ---
EXAMINATION: XR tibia fibula RT 2V DATE: 10/02/2022 15:53 INDICATION: Posterior right tibia/fibular pain post fall 2 weeks prior. TECHNIQUE: Anteroposterior and lateral views of the right tibia and fibula were obtained. COMPARISON: None. FINDINGS: Bone alignment is normal. No fracture. Moderate medial and patellofemoral compartment predominant tri compartmental osteoarthritis at the right knee. No evident joint effusion. Right ankle and subtalar j oint spaces appear relatively preserved. No ankle joint effusion. Moderate-sized Achilles and plantar calcaneal spurs. Soft tissues are unremarkable. IMPRESSION: 1. No acute osseous abnormality. 2. Moderate medial and patellofemoral predominant tricompartmental osteoarthritis at the right knee. Reviewed, dictated and finalized at location B. ER TECHNICIAN IMPRESSION: 1. No acute osseous abnormality. 2. Moderate medial and patellofemoral predominant tricompartmental osteoarthrit is at the right knee.
[2022-10-02 12:20] VITALS: BP 146/64; PULSE 73; RESP 18; TEMP 37.3; O2SAT 100
--- NOTE | 2022-10-02 14:54 | ED.FALL ---
HPI - Fall General Chief Complaint: Fall <TYREE Hair Last Filed: 10/02/22 17:18> Stated Complaint: fall 1 week ago, pain at pacemaker site <TYREE Hair Last Filed: 10/02/22 17:18> Time Seen by Provider: 10/02/22 14:40 <TYREE Hair Last Filed: 10/02/22 17:18> History of Present Illness HPI Narrative: 77-year-old female here for evaluation of left-sided rib pain for the past week. Patient states that she lost her balance a week ago, causing her to fall backwards into a wall. States that she loses her balance quite frequently due to history of polio. Since then she has been complaining of pain in her left lateral ribs and around her bra line . Also notes pain at her pacemaker site. She is concerned that her pacemaker is not functioning after hitting it against the wall. Has been taking tramadol with good relief of her pain. Denies any chest pain, shortness of breath, fevers or chills, nausea vomiting. Also complaining of right lower leg pain over the past week after her fall. States that her leg is atrophied on the left from polio and her right leg is always larger than the left. No numbness or tingling, has been able to walk without issues. <TYREE Hair Last Filed: 10/02/22 17:18> Related Data Home Medications: Home Medications Medication Instructions Recorded Confirmed calcium carbonate 600 mg calcium 1,200 mg PO DAILY 09/26/19 06/14/22 (1,500 mg) tablet (Calcium) cyclosporine 0.05 % eye drops 1 drp EACH EYE DAILY 04/06/21 06/14/22 (Restasis MultiDose) <TYREE Hair Last Filed: 10/02/22 17:18> Allergies/Adverse Reactions: Allergies Allergy/AdvReac Type Severity Reaction Status Date / Time acetaminophen Allergy Intermediate Nausea and Verified 06/14/22 10:22 Vomiting hydrocodone Allergy Intermediate Nausea and Verified 06/14/22 10:22 Vomiting aspirin AdvReac Intermediate Gastrointestinal Verified 06/14/22 10:22 Upset <Marie Allan PA-C - Last Filed: 10/02/22 17:18> Review of Systems Review of Systems: Gen: Denies fevers or chills Eyes: Denies eye pain or visual change ENT: Denies congestion Respiratory: Denies shortness of breath or cough CV: Denies chest pain or palpitations GI: Denies abdominal pain nausea, emesis or diarrhea denies burning, urgency, frequency or hematuria Musculoskeletal: Reports pain along left side of bra line and right lower leg pain. Neuro: Denies numbness, tingling, weakness or focal weakness Skin: Denies rash Except as documented, all other systems reviewed and negative <Marie Allan PA-C - Last Filed: 10/02/22 17:18> [facility] Past Medical History Medical History: Medical History Bilateral low back pain with right-sided sciatica Carotid stenosis, bilateral Cerebrovascular disease, unspecified Cerumen impaction Chronic left shoulder pain Chronic right shoulder pain Diabetes mellitus type 2 with neurological manifestations Encounter for screening mammogram for malignant neoplasm of breast Essential (primary) hypertension Facial pressure Gastro-esophageal reflux disease without esophagitis Headache Hormone replacement therapy (postmenopausal) Hyperlipidemia LDL goal <70 IBS (irritable bowel syndrome) Lung nodule Nontoxic multinodular goiter Osteoporosis Polyosteoarthritis, unspecified Type 2 diabetes mellitus with hyperglycemia <Marie Allan PA-C - Last Filed: 10/02/22 17:18> Surgical History Surgical History: Surgical History S/P placement of cardiac pacemaker placed 10/28/2020 <Marie Allan PA-C - Last Filed: 10/02/22 17:18> Family History Family History: Family History Mother Hypertension
[2022-10-02 15:41] LABS: Basophils Absolute Auto 0.1 K/mm3 (0.0-0.1); Basophils Percent Auto 0.7 % (0.2-1.2); Eosinophils Absolute Auto 0.5 K/mm3 (0-0.3); Eosinophils Percent Auto 5.6 % (0-4.4); Hematocrit 35.2 % (37.0-47.0); Hemoglobin 11.3 g/dL (12.0-15.0); Immature Granulocyte Absolute 0.01 K/mm3 (0.00-0.031); Immature Granulocyte Percent A 0.1 % (0-0.5); Lymphocytes Absolute Auto 2.79 K/mm3 (0.9-3.2); Lymphocytes Percent Auto 30.6 % (18.3-44.2); Mean Corpuscular HGB Conc 32.1 g/dl (32-36); Mean Corpuscular Hemoglobin 28.8 pg (26-34); Mean Corpuscular Volume 89.8 fl (80-100); Mean Platelet Volume 10.1 fl (7.4-10.4); Monocytes Absolute Auto 0.6 K/mm3 (0.1-0.6); Neutrophils Absolute Auto 5.2 K/mm3 (1.3-6.7); Platelet Count Result 277 k/mm3 (150-375); Red Blood Count 3.92 M/mm3 (4.2-5.4); Red Cell Distribution Width 13.6 % (11.5-14.5); White Blood Count 9.1 K/mm3 (4.5-10.0)
[2022-10-02 15:58] LABS: Anion Gap 11 mmol/L (8-16); Blood Urea Nitrogen 13 mg/dL (7-17); Calcium 9.8 mg/dL (8.4-10.2); Carbon Dioxide 28 mmol/L (22-30); Chloride 102 mmol/L (98-107); Estimated Glomerular Filt Rate > 60; Glucose 149 mg/dL (65-110); Potassium 3.8 mmol/L (3.4-5.0); Sodium 141 mmol/L (137-145)
== END 2022-10-02 17:07 | disposition home or self-care (01) ==
PROVIDERS: Physician Assistant; Emergency Provider Emergency Medicine; PCP Internal Medicine
DX: S29.9XXA Unspecified injury of thorax, initial encounter (principal); M79.604 Pain in right leg; I65.23 Occlusion and stenosis of bilateral carotid arteries; E11.49 Type 2 diabetes mellitus with other diabetic neurological complication; I10 Essential (primary) hypertension; E78.5 Hyperlipidemia, unspecified; K58.9 Irritable bowel syndrome, unspecified; K21.9 Gastro-esophageal reflux disease without esophagitis; M17.11 Unilateral primary osteoarthritis, right knee; M81.0 Age-related osteoporosis without current pathological fracture; Z86.12 Personal history of poliomyelitis; Z95.0 Presence of cardiac pacemaker; Z79.84 Long term (current) use of oral hypoglycemic drugs; M85.88 Other specified disorders of bone density and structure, other site; Z98.1 Arthrodesis status; Z96.612 Presence of left artificial shoulder joint; W01.198A Fall on same level from slipping, tripping and stumbling with subsequent striking against other object, initial encounter
CPT/HCPCS: 36415; 71046; 71100; 73590; 80048; 85025; 93971; 99284

== ENCOUNTER 2022-10-19 07:55 | Outpatient (CLI) | payer MEDICARE, SELFPAY ==
[2022-10-19 08:31] LABS: Hemoglobin A1C 6.7 % (<5.7)
[2022-10-19 08:36] LABS: Alanine Aminotransferase 17 U/L (6-35); Albumin Level 4.4 g/dL (3.5-5.1); Alkaline Phosphatase 64 U/L (38-126); Anion Gap 6 mmol/L (8-16); Aspartate Amino Transferase 28 U/L (14-36); Bilirubin,Total 0.5 mg/dL (0.2-1.3); Blood Urea Nitrogen 17 mg/dL (7-17); Calcium 9.8 mg/dL (8.4-10.2); Carbon Dioxide 28 mmol/L (22-30); Chloride 103 mmol/L (98-107); Estimated Glomerular Filt Rate > 60; Glucose 120 mg/dL (65-110); Phosphorus 3.6 mg/dL (2.5-4.5); Potassium 4.1 mmol/L (3.4-5.0); Sodium 137 mmol/L (137-145)
[2022-10-19 08:47] LABS: Parathyroid Intact 62.6 pg/mL (7.5-53.5)
[2022-10-19 09:12] LABS: Vitamin D 25 Hydroxy 37.8 ng/mL
== END 2022-10-19 07:56 | disposition home or self-care (01) ==
LOC: ANHLAB 07:56
PROVIDERS: PCP Internal Medicine; Visit Provider Nurse Practitioner
DX: E11.9 Type 2 diabetes mellitus without complications (principal); M81.0 Age-related osteoporosis without current pathological fracture
CPT/HCPCS: 36415; 80053; 82306; 83036; 83970; 84100

== ENCOUNTER 2022-11-06 10:22 | Emergency (ER) | payer MEDICARE, SELFPAY ==
--- NOTE | ~2022-11-06 | CT_ITS ---
EXAMINATION: CT abdomen pelvis w con DATE: 11/06/2022 15:33 INDICATION: Abdominal pain TECHNIQUE: Computed tomography (CT) of the abdomen and pelvis was performed with 100 mL Omnipaque-350 intravenous contrast. Automated exposure control and iterative reconstruction technique were employe d. The dose-length product was 285.57 mGy-cm. COMPARISON: None FINDINGS: Lung bases are clear. Heart size is normal. No pericardial or pleural effusion. Dual-lead cardiac pac emaker with ventricular lead terminating at the apex of the right ventricle after having looped cauda lly into the intrahepatic portion of the inferior vena cava. Atrial lead tip evident at the atrial ap pendage on the electric milkers installer topogram. Postoperative change of prior Kadeem fundoplication. Cholecystectomy c lips the gallbladder fossa. Liver, spleen, pancreas and bilateral adrenal glands are normal. There is mild urothelial enhancement at the bilateral proximal ureters and renal pelvises sees which is suspi cious for ascending urinary tract infection. Zaragoza catheter in the decompressed bladder. Large amount of stool scattered throughout the colon extending to the rectum where the ball of stool measures 5.9 x 5.7 cm in maximal diameter consistent with constipation and possible fecal impaction. Normal small bowel and appendix. The uterus is not identified and has likely been surgically resected. No free in traperitoneal gas or fluid. No pathologically enlarged abdominal or pelvic lymphadenopathy. Mild lumb ar levoscoliosis with severe spondylosis. IMPRESSION: 1. Urothelial enhancement along the bilateral proximal ureters and renal pelvises, right greater than left which is suspicious for ascending urinary tract infections. Correlate with urinalysis. 2. Large amount of stool throughout the colon extending to the rectum suggestive of constipation and possible fecal impaction. Reviewed, dictated and finalized at location B. LING MACHINE OPERATOR IMPRESSION: 1. Urothelial enhancement along the bilateral proximal ureters and renal pelvis es, right greater than left which is suspicious for ascending urinary tract inf ections. Correlate with urinalysis. 2. Large amount of stool throughout the colon extending to the rectum suggestiv e of constipation and possible fecal impaction.
[2022-11-06 10:27] VITALS: BP 157/88; PULSE 85; RESP 14; TEMP 36.3; O2SAT 100
[2022-11-06 12:25] VITALS: BP 131/53; PULSE 65; RESP 16; TEMP 36.6; O2SAT 100
--- NOTE | 2022-11-06 14:30 | PC.NURSE ---
Incontinent of large amount of urine just prior to catheter placement. Immediate return of 600 ml of urine when catheter was placed.
[2022-11-06 14:52] LABS: Basophils Percent Auto 0.3 % (0.2-1.2); Eosinophils Percent Auto 0.1 % (0-4.4); Hemoglobin 11.3 g/dL (12.0-15.0); Immature Granulocyte Absolute 0.06 K/mm3 (0.00-0.031); Immature Granulocyte Percent A 0.4 % (0-0.5); Lymphocytes Percent Auto 12.5 % (18.3-44.2); Mean Corpuscular HGB Conc 32.3 g/dl (32-36); Mean Corpuscular Hemoglobin 28.9 pg (26-34); Mean Corpuscular Volume 89.5 fl (80-100); Mean Platelet Volume 10.5 fl (7.4-10.4); Monocytes Absolute Auto 0.7 K/mm3 (0.1-0.6); Monocytes Percent Auto 4.4 % (2.6-8.5); Neutrophils Absolute Auto 12.5 K/mm3 (1.3-6.7); Neutrophils Percent Auto 82.3 % (45.5-73.1); Platelet Count Result 280 k/mm3 (150-375); Red Blood Count 3.91 M/mm3 (4.2-5.4); Red Cell Distribution Width 13.7 % (11.5-14.5); White Blood Count 15.2 K/mm3 (4.5-10.0)
[2022-11-06 15:00] LABS: Add Urine Microscopic? YES; Appearance Urine Clear (Clear); Bilirubin Urine Negative (Negative); Blood Urine Negative (Negative); Color Urine Light Yellow (Yellow); Glucose Urine UA 2+ mg/dL (Negative); Ketones Urine Negative (Negative); Leukocyte Esterase Ur Negative LEU/UL (Negative); Nitrate Urine Negative (Negative); Protein Urine Negative (Negative); Urobilinogen Urine 0.2 mg/dL (<2.0)
--- NOTE | 2022-11-06 15:00 | ED.GENADULT ---
HPI - General Adult General Chief complaint: Abdominal Pain Stated complaint: abd pain Time Seen by Provider: 11/06/22 14:21 History of Present Illness HPI narrative: 77-year-old female history of constipation presented emergency department for evaluation of constipation over the last few days. Patient states she has been having diffuse abdominal pain. Patient reports has been constipated for approximately 4 days. Patient reports that she did take laxatives this morning without any improvement. Patient was found to have urinary retention on arrival and a Zaragoza catheter was placed. Patient had been incontinent and wet the bed but also after placement of the Zaragoza patient had greater than 600 mL of retained urine. Related Data Home Medications Medication Instructions Recorded Confirmed calcium carbonate 600 mg calcium 1,200 mg PO DAILY 09/26/19 06/14/22 (1,500 mg) tablet (Calcium) cyclosporine 0.05 % eye drops 1 drp EACH EYE DAILY 04/06/21 06/14/22 (Restasis MultiDose) Allergies Allergy/AdvReac Type Severity Reaction Status Date / Time acetaminophen Allergy Intermediate Nausea and Verified 11/06/22 14:37 Vomiting hydrocodone Allergy Intermediate Nausea and Verified 11/06/22 14:37 Vomiting aspirin AdvReac Intermediate Gastrointestinal Verified 11/06/22 14:37 Upset Review of Systems Review of Systems: CONSTITUTIONAL: Denies fever, chills, or sweats. EYES: Denies visual changes, redness, or discharge. ENT: Denies rhinorrhea, congestion, sore throat, or otalgia. CARDIOVASCULAR: Denies chest pain, palpitations, or edema. RESPIRATORY: Denies cough or dyspnea. GASTROINTESTINAL: See HPI GENITOURINARY: Denies dysuria or hematuria. SKIN: Denies rash or itching. MUSCULOSKELETAL: Denies back pain, joint pain, or myalgia. NEUROLOGIC: Denies headache, numbness, or weakness. PSYCHIATRIC: Denies anxiety or depression. [facility] Past Medical History Medical History Bilateral low back pain with right-sided sciatica Carotid stenosis, bilateral Cerebrovascular disease, unspecified Cerumen impaction Chronic left shoulder pain Chronic right shoulder pain Diabetes mellitus type 2 with neurological manifestations Encounter for screening mammogram for malignant neoplasm of breast Essential (primary) hypertension Facial pressure Gastro-esophageal reflux disease without esophagitis Headache Hormone replacement therapy (postmenopausal) Hyperlipidemia LDL goal <70 IBS (irritable bowel syndrome) Lung nodule Nontoxic multinodular goiter Osteoporosis Polyosteoarthritis, unspecified Type 2 diabetes mellitus with hyperglycemia Surgical History Surgical History S/P placement of cardiac pacemaker placed 10/28/2020 Family History Family History Mother Hypertension Family history of diabetes mellitus in first degree relative Family history of chronic obstructive pulmonary disease Patient's mother is Diabetes mellitus Sibling Hypertension Diabetes mellitus Father Family history of malignant neoplasm Family history of coronary artery disease Social History Social History Smoking status: Never smoker Second hand tobacco smoke exposure: No Alcohol intake: current Alcohol use details: seldom rare etoh use Substance use: never Substance use type: does not use Gender identity (if verbalized by the patient): Female Sexual Orientation (if Verbalized by the Patient): Straight or Heterosexual Spiritual care concerns: No Exam Narrative: APPEARANCE: Well appearing, no pain, no distress, well-nourished. HEAD: normocephalic, atraumatic. EYES: PERRLA/EOMI, conjunctivae clear. NOSE: Normal no drainage EARS:TMS clear with good light reflex. THROAT: Pharynx clear,
[2022-11-06 15:09] LABS: Alanine Aminotransferase 17 U/L (6-35); Albumin Level 4.7 g/dL (3.5-5.1); Alkaline Phosphatase 64 U/L (38-126); Anion Gap 4 mmol/L (8-16); Aspartate Amino Transferase 27 U/L (14-36); Bilirubin,Total 0.5 mg/dL (0.2-1.3); Blood Urea Nitrogen 13 mg/dL (7-17); Calcium 9.6 mg/dL (8.4-10.2); Carbon Dioxide 29 mmol/L (22-30); Chloride 98 mmol/L (98-107); Estimated Glomerular Filt Rate > 60; Glucose 187 mg/dL (65-110); Lipase 44 U/L (23-300); Sodium 131 mmol/L (137-145)
--- NOTE | 2022-11-06 16:55 | PC.NURSE ---
1000 ml soap suds enema given. Tolerated well. Up to commode after enema to attempt BM.
--- NOTE | 2022-11-06 17:41 | PC.NURSE ---
Zaragoza catheter removed with tip intact. Pt had large BM following enema.
== END 2022-11-06 17:53 | disposition home or self-care (01) ==
PROVIDERS: Emergency Provider Emergency Medicine; PCP Internal Medicine
DX: K59.00 Constipation, unspecified (principal); R33.9 Retention of urine, unspecified; I65.23 Occlusion and stenosis of bilateral carotid arteries; E11.49 Type 2 diabetes mellitus with other diabetic neurological complication; I10 Essential (primary) hypertension; E78.5 Hyperlipidemia, unspecified; M81.0 Age-related osteoporosis without current pathological fracture; M19.90 Unspecified osteoarthritis, unspecified site; K21.9 Gastro-esophageal reflux disease without esophagitis; Z86.73 Personal history of transient ischemic attack (TIA), and cerebral infarction without residual deficits; Z95.0 Presence of cardiac pacemaker; Z79.84 Long term (current) use of oral hypoglycemic drugs
CPT/HCPCS: 36415; 51702; 74177; 80053; 81001; 83690; 85025; 99284; Q9967

== ENCOUNTER 2023-01-17 12:24 | Outpatient (CLI) | payer MEDICARE, SELFPAY ==
--- NOTE | ~2023-01-17 | DEXA_ITS ---
Bone Density Report Name: FARHEEN BULLOCK Age: 77 Sex: Female Ethnicity: White Date of : 1945 Indication: postmenopausal; screening for osteoporosis; height loss; hysterectomy; secondary osteoporosis; Referring Provider: AGAPITO ECHEVERRIA Study: Bone densitometry was performed. Exam Date: January 17, 2023 Accession number: [id number] Bone Density: Region BMD T-score Z-score Classification AP Spine(L1, L2, L4) 1.121 0.8 3.4 Normal Femoral Neck (Left) 0.496 -3.2 -0.9 Osteoporosis Total Hip (Left) 0.684 -2.1 -0.1 Osteopenia Femoral Neck (Right) 0.595 -2.3 0.0 Osteopenia Total Hip (Right) 0.749 -1.6 0.4 Osteopenia Total Hip Mean 0.716 -1.9 0.2 Osteopenia World Health Organization criteria for BMD impression classify patients as: Normal (T-score at or above -1.0), Osteopenia (T-score between -1.0 and -2.5), or Osteoporosis (T-score at or below -2.5). 10-year Fracture Risk: FRAX not reported because: Some T-score for Spine Total or Hip Total or Femoral Neck at or below -2.5 Clinical Information Provided by Patient: Has secondary osteoporosis Has used the following medications: Prolia (i.e. denosumab), Vitamin D, Calcium Has the following medical conditions: Hysterectomy, Polio Patient maximum height was 59 Menopause Age: 33 No regular weight bearing exercise Drinks caffeinated beverages Onset of menses at age 11 Number of children 3 Impression: The patient has osteoporosis, based on the Left Femoral Neck T-score. Discussion: INCREASED RISK OF FRACTURE. BONE DENSITY IS UNDESIRABLY LOW AT ONE OR MORE SKELETAL SITES, CONSISTENT WITH POSTMENOPAUSAL OSTEOPOROSIS. This patient's lowest T-score meets the World Health Organization's (WHO) criteria for osteoporosis at one or more sites (T-score -2.5 or below). In untreated patients, the risk of osteoporotic fracture increases approximately two-fold for each 1.0 SD decrease in T-score. Low bone density is not the only risk factor for fracture; also consider factors such as patient's age, frailty or poor health, risk of falling, risk of injury, previous osteoporotic fracture, family history of osteoporosis, cigarette smoking, low body weight, etc. Not everyone with low bone mineral density has osteoporosis; osteomalacia and other metabolic bone disorders should also be considered. Patients who have osteoporosis should be evaluated for specific diseases and conditions (secondary causes) that may cause or contribute to bone loss. The [place] [employer]ocrinologists (AACE) and National Osteoporosis Foundation (NOF) recommend pharmacologic intervention for all postmenopausal women whose T-score is in this range. The patient should follow a healthful lifestyle (good nutrition with adequate calcium and vitamin D, and appropriate weight-bearing exerc
--- NOTE | ~2023-01-17 | MM_ITS ---
EXAMINATION: MM screening babs BI w christiano HISTORY: Screening mammogram TECHNIQUE: Craniocaudal and mediolateral oblique 3-D tomosynthesis images were obtained and synthetic 2-D images were generated. CAD analysis was submitted and interpreted. COMPARISON: 11/08/2021, 09/13/2020, 09/07/2019 bilateral screening mammogram examinations BREAST PARENCHYMAL COMPOSITION: The breasts are almost entirely fatty. FINDINGS: Scattered bilateral benign calcifications are again present. There is no evidence of suspic ious mass, calcification, or architectural distortion to suggest malignancy in either breast. There h as been no suspicious interval change. IMPRESSION: 1. No mammographic evidence of malignancy. 2. Recommend routine screening mammography in one year. BI-RADS Category 2: Benign finding(s). Reviewed, dictated and finalized at location A. NG ERECTOR
== END 2023-01-17 12:25 | disposition home or self-care (01) ==
LOC: ANHIMG 12:26
PROVIDERS: PCP Internal Medicine; Visit Provider Nurse Practitioner
DX: Z12.31 Encounter for screening mammogram for malignant neoplasm of breast (principal); Z78.0 Asymptomatic menopausal state; M81.0 Age-related osteoporosis without current pathological fracture; M85.852 Other specified disorders of bone density and structure, left thigh; M85.851 Other specified disorders of bone density and structure, right thigh
CPT/HCPCS: 77063; 77067; 77080

== ENCOUNTER 2023-02-04 18:15 | Emergency (ER) | payer MEDICARE, SELFPAY ==
[2023-02-04 18:18] VITALS: BP 109/64; PULSE 73; RESP 16; TEMP 36.8; O2SAT 100
--- NOTE | 2023-02-04 21:07 | PC.NURSE ---
2057 pt called to go back to room, no response.
== END 2023-02-04 21:41 | disposition left against medical advice (07) ==
LOC: ANHED 21:08
PROVIDERS: PCP Internal Medicine
DX: F41.9 Anxiety disorder, unspecified (principal)
CPT/HCPCS: 99199

== ENCOUNTER 2023-02-09 12:33 | Emergency (ER) | payer MEDICARE, SELFPAY ==
[2023-02-09 13:12] VITALS: BP 153/76; PULSE 67; RESP 16; TEMP 36.5; O2SAT 100
[2023-02-09 13:16] LABS: Glucose Point of Care 173 mg/dl (65-105)
--- NOTE | 2023-02-09 14:12 | PC.NURSE ---
Patient aware of risks of leaving department without being seen by provider. patient verbalized understanding and ambulated with steady gate out of department
== END 2023-02-09 14:21 | disposition left against medical advice (07) ==
PROVIDERS: Emergency Provider Emergency Medicine; PCP Internal Medicine
DX: E11.65 Type 2 diabetes mellitus with hyperglycemia (principal)
CPT/HCPCS: 82948; 99199

== ENCOUNTER 2023-03-26 10:07 | Emergency (ER) | payer MEDICARE, SELFPAY ==
--- NOTE | ~2023-03-26 | XR_ITS ---
EXAMINATION: XR hip LT 2V w AP pelvis DATE: 03/26/2023 11:27 INDICATION: Left hip pain. TECHNIQUE: An anteroposterior view of the pelvis and 2 views of left hip were obtained. COMPARISON: Pelvis and hip radiographs 11/04/2021 FINDINGS: Bone alignment is normal. No fracture. There is mild osteoarthritis of the hips. There is m ild lower lumbar spondylosis. IMPRESSION: 1. Mild osteoarthritis of the hips. Reviewed, dictated and finalized at location A.
--- NOTE | ~2023-03-26 | XR_ITS ---
EXAMINATION: XR lumbar spine 2-3V DATE: 03/26/2023 11:27 INDICATION: Low back pain. TECHNIQUE: 3 views of lumbar spine were obtained. COMPARISON: Lumbar spine radiographs 11/04/2021 FINDINGS: There is 15 degrees dextroscoliosis of thoracolumbar spine. Vertebral body heights are norm al. There is severely decreased disc height at L1-L2, L2-L3, and L3-L4. There is multilevel severe fa cet joint osteoarthritis. Surgical clips in the right upper quadrant are likely from cholecystectomy. IMPRESSION: 1. Severe lumbar spondylosis. 2. Thoracolumbar dextroscoliosis. Reviewed, dictated and finalized at location A.
[2023-03-26 10:09] VITALS: BP 145/49; PULSE 64; RESP 16; TEMP 36.6; O2SAT 99
[2023-03-26 11:01] VITALS: BP 108/59; O2SAT 100
--- NOTE | 2023-03-26 11:13 | ED.GENADULT ---
HPI - General Adult General Chief complaint: Unspecified Stated complaint: hip pain with radiation down leg Time Seen by Provider: 03/26/23 11:02 History of Present Illness HPI narrative: 77-year-old female presents with left lower back pain that radiates down left leg. Patient states its been going on for 3 days. Patient denies any trauma or injury to the area. Patient has a history of sciatica and polio. Patient has been taking tramadol with no relief. Patient denies any flank pain, loss of bowel or bladder, or any other concerning symptoms. No other complaints Onset (ago): day(s) Treatments prior to arrival: other (Tramadol) Related Data Home Medications Medication Instructions Recorded Confirmed calcium carbonate 600 mg calcium 1,200 mg PO BID 11/27/22 11/27/22 (1,500 mg) tablet (Calcium) cyclosporine 0.05 % eye drops 1 drp EACH EYE BID 11/27/22 11/27/22 (Restasis MultiDose) Allergies Allergy/AdvReac Type Severity Reaction Status Date / Time acetaminophen Allergy Intermediate Nausea and Verified 03/26/23 10:11 Vomiting hydrocodone Allergy Intermediate Nausea and Verified 03/26/23 10:11 Vomiting aspirin AdvReac Intermediate Gastrointestinal Verified 03/26/23 10:11 Upset Review of Systems Review of Systems: A 10 system review of systems was completed on the patient and is negative except for what is stated in the HPI. Nursing and ancillary documentation was reviewed. [facility] Past Medical History Medical History Bilateral low back pain with right-sided sciatica Carotid stenosis, bilateral Cerebrovascular disease, unspecified Cerumen impaction Chronic left shoulder pain Chronic right shoulder pain Diabetes mellitus type 2 with neurological manifestations Encounter for screening mammogram for malignant neoplasm of breast Essential (primary) hypertension Facial pressure Gastro-esophageal reflux disease without esophagitis Headache Hormone replacement therapy (postmenopausal) Hyperlipidemia LDL goal <70 IBS (irritable bowel syndrome) Lung nodule Nontoxic multinodular goiter Osteoporosis Polyosteoarthritis, unspecified Type 2 diabetes mellitus with hyperglycemia Surgical History Surgical History S/P placement of cardiac pacemaker placed 10/28/2020 Family History Family History Mother Hypertension Family history of diabetes mellitus in first degree relative Family history of chronic obstructive pulmonary disease Patient's mother is Diabetes mellitus Sibling Hypertension Diabetes mellitus Father Family history of malignant neoplasm Family history of coronary artery disease Social History Social History (Updated 03/08/23 @ 13:25 by Lorraine Rayo MA) Smoking status: Never smoker Second hand tobacco smoke exposure: No Alcohol intake: never Alcohol use details: seldom rare etoh use Substance use: never Substance use type: does not use Lack of Transportation: No Lack of Food: Never True Current Housing: I Have Housing Concerned About Future Housing: No Difficulty Paying Gas/Electric Bills: No Difficulty Paying for Meds: No Currently Unemployed: No Education: Associate Degree Difficulty w/ Childcare or Family Care: No Living arrangements: with family Gender identity (if verbalized by the patient): Female Sexual Orientation (if Verbalized by the Patient): Straight or Heterosexual Spiritual care concerns: No Exam Narrative: GENERAL: Well-appearing, well-nourished, and in no acute distress. HEAD: Normocephalic, atraumatic. EYES: PERRLA and EOMI. ENT: Nares clear, no rhinorrhea or epistaxis. Mucous membranes moist. NECK: Supple. CHEST: Clear to auscultation. No respiratory distress. HEART: Regular rate and rhythm. No murmur heard. Normal p
[2023-03-26 11:15] VITALS: BP 123/54; O2SAT 99
[2023-03-26] MEDS: CYCLOBENZAPRINE HCL 10 MG TABLET PO (11:39)
[2023-03-26] MEDS: oxyCODONE HCL (*CRX) 2.5 MG TAB IR PO (11:59)
== END 2023-03-26 12:16 | disposition home or self-care (01) ==
PROVIDERS: Emergency Provider Nurse Practitioner Family; PCP Family Medicine
DX: M54.42 Lumbago with sciatica, left side (principal); E11.9 Type 2 diabetes mellitus without complications; I10 Essential (primary) hypertension; K21.9 Gastro-esophageal reflux disease without esophagitis; M19.90 Unspecified osteoarthritis, unspecified site
CPT/HCPCS: 72100; 73502; 99284; A9270

== ENCOUNTER 2023-03-27 09:46 | Emergency (ER) | payer MEDICARE, SELFPAY ==
[2023-03-27] VITALS (14 sets, daily range): BP systolic 132–170; BP diastolic 66–103; PULSE 64–80; RESP 11–20; TEMP 36.7; O2SAT 99–100
--- NOTE | 2023-03-27 09:59 | ECG_ITS ---
Measurements Intervals [place] Rate: 73 P: 132 [place]: 226 QRS: -78 QRSD: 158 T: 88 QT: 414 QTc: 458 Interpretive Statements ELECTRONIC ATRIAL PACEMAKER ELECTRONIC VENTRICULAR PACEMAKER NO FURTHER INTERPRETATION IS POSSIBLE ATYPICAL ECG COMPARED TO ECG 02/27/2022 15:00:53 NO SIGNIFICANT CHANGES Electronically Signed On 03-27-2023 11:52:48 CDT by Bobby Jacques D.O.
[2023-03-27 10:33] LABS: Basophils Percent Auto 0.5 % (0.2-1.2); Eosinophils Absolute Auto 0.2 K/mm3 (0-0.3); Eosinophils Percent Auto 2.6 % (0-4.4); Hematocrit 34.8 % (37.0-47.0); Immature Granulocyte Absolute 0.01 K/mm3 (0.00-0.031); Immature Granulocyte Percent A 0.1 % (0-0.5); Lymphocytes Absolute Auto 2.17 K/mm3 (0.9-3.2); Lymphocytes Percent Auto 24.7 % (18.3-44.2); Mean Corpuscular HGB Conc 31.6 g/dl (32-36); Mean Corpuscular Hemoglobin 28.4 pg (26-34); Mean Corpuscular Volume 89.7 fl (80-100); Mean Platelet Volume 10.1 fl (7.4-10.4); Monocytes Absolute Auto 0.6 K/mm3 (0.1-0.6); Monocytes Percent Auto 6.4 % (2.6-8.5); Neutrophils Absolute Auto 5.8 K/mm3 (1.3-6.7); Neutrophils Percent Auto 65.7 % (45.5-73.1); Platelet Count Result 260 k/mm3 (150-375); Red Blood Count 3.88 M/mm3 (4.2-5.4); Red Cell Distribution Width 14.6 % (11.5-14.5); White Blood Count 8.8 K/mm3 (4.5-10.0)
[2023-03-27 10:42] LABS: Alanine Aminotransferase 18 U/L (6-35); Albumin Level 4.2 g/dL (3.5-5.1); Alkaline Phosphatase 61 U/L (38-126); Anion Gap 7 mmol/L (8-16); Aspartate Amino Transferase 21 U/L (14-36); Bilirubin,Total 0.4 mg/dL (0.2-1.3); Blood Urea Nitrogen 20 mg/dL (7-17); Calcium 9.6 mg/dL (8.4-10.2); Carbon Dioxide 28 mmol/L (22-30); Chloride 105 mmol/L (98-107); Estimated Glomerular Filt Rate > 60; Glucose 190 mg/dL (65-110); Potassium 3.7 mmol/L (3.4-5.0); Sodium 140 mmol/L (137-145)
[2023-03-27 11:15] LABS: Appearance Urine Clear (Clear); Bacteria Urine None Seen /hpf; Bilirubin Urine Negative (Negative); Blood Urine Negative (Negative); Color Urine Yellow (Yellow); Glucose Urine UA 1+ mg/dL (Negative); Ketones Urine Trace mg/dL (Negative); Leukocyte Esterase Ur Negative LEU/UL (Negative); Need Manual Microscopic Reviewed; Nitrate Urine Negative (Negative); Non Pathogenic Casts 0-2; Protein Urine Trace mg/dL (Negative); RBC Urine 0-2 /hpf (0-2); Specific Grav Ur 1.027 (1.001-1.035); Squamous Epithelial Cell Urine None seen /hpf (Few); Urobilinogen Urine 0.2 mg/dL (<2.0); WBC Urine 0-5 /hpf; pH Urine 5.5 (5.0-9.0)
[2023-03-27 11:16] LABS: Add Urine Microscopic? YES
--- NOTE | 2023-03-27 12:45 | ED.WEAKNESS ---
HPI - Weakness General Chief complaint: Weakness Stated complaint: weakness Time Seen by Provider: 03/27/23 10:08 History of Present Illness HPI Narrative: This is a 77-year-old female, who presents the emergency department complaining of generalized weakness and some increased confusion last night. The patient believes she took her medications incorrectly leading to confusion and increased fatigue. She also complains of some increased urination with burning sensation. She has no other complaints today Related Data Home Medications Medication Instructions Recorded Confirmed calcium carbonate 600 mg calcium 1,200 mg PO BID 11/27/22 11/27/22 (1,500 mg) tablet (Calcium) cyclosporine 0.05 % eye drops 1 drp EACH EYE BID 11/27/22 11/27/22 (Restasis MultiDose) Allergies Allergy/AdvReac Type Severity Reaction Status Date / Time acetaminophen Allergy Intermediate Nausea and Verified 03/27/23 10:11 Vomiting hydrocodone Allergy Intermediate Nausea and Verified 03/27/23 10:11 Vomiting aspirin AdvReac Intermediate Gastrointestinal Verified 03/27/23 10:11 Upset Review of Systems Review of Systems: CONSTITUTIONAL: Denies fever, chills, or sweats. EYES: Denies visual changes, redness, or discharge. ENT: Denies rhinorrhea, congestion, sore throat, or otalgia. CARDIOVASCULAR: Denies chest pain, palpitations, or edema. RESPIRATORY: Denies cough or dyspnea. GASTROINTESTINAL: Denies abdominal pain, nausea, vomiting, or diarrhea. GENITOURINARY: Dysuria denies dysuria or hematuria. SKIN: Denies rash or itching. MUSCULOSKELETAL: Denies back pain, joint pain, or myalgia. NEUROLOGIC: Generalized weakness denies headache, numbness, dizziness. PSYCHIATRIC: Denies anxiety or depression. [facility] Past Medical History Medical History Bilateral low back pain with right-sided sciatica Carotid stenosis, bilateral Cerebrovascular disease, unspecified Cerumen impaction Chronic left shoulder pain Chronic right shoulder pain Diabetes mellitus type 2 with neurological manifestations Encounter for screening mammogram for malignant neoplasm of breast Essential (primary) hypertension Facial pressure Gastro-esophageal reflux disease without esophagitis Headache Hormone replacement therapy (postmenopausal) Hyperlipidemia LDL goal <70 IBS (irritable bowel syndrome) Lung nodule Nontoxic multinodular goiter Osteoporosis Polyosteoarthritis, unspecified Type 2 diabetes mellitus with hyperglycemia Surgical History Surgical History S/P placement of cardiac pacemaker placed 10/28/2020 Family History Family History Mother Hypertension Family history of diabetes mellitus in first degree relative Family history of chronic obstructive pulmonary disease Patient's mother is Diabetes mellitus Sibling Hypertension Diabetes mellitus Father Family history of malignant neoplasm Family history of coronary artery disease Social History Social History Smoking status: Never smoker Second hand tobacco smoke exposure: No Alcohol intake: never Alcohol use details: seldom rare etoh use Substance use: never Substance use type: does not use Lack of Transportation: No Lack of Food: Never True Current Housing: I Have Housing Concerned About Future Housing: No Difficulty Paying Gas/Electric Bills: No Difficulty Paying for Meds: No Currently Unemployed: No Education: Associate Degree Difficulty w/ Childcare or Family Care: No Living arrangements: with family Gender identity (if verbalized by the patient): Female Sexual Orientation (if Verbalized by the Patient): Straight or Heterosexual Spiritual care concerns: No Exam Narrative: GENERAL: Well-developed, well-no
== END 2023-03-27 13:43 | disposition home or self-care (01) ==
PROVIDERS: Emergency Provider Preventive Medicine Aerospace Medicine; PCP Family Medicine
DX: E86.0 Dehydration (principal); E11.65 Type 2 diabetes mellitus with hyperglycemia; I65.23 Occlusion and stenosis of bilateral carotid arteries; I10 Essential (primary) hypertension; E11.49 Type 2 diabetes mellitus with other diabetic neurological complication; E78.5 Hyperlipidemia, unspecified; K58.9 Irritable bowel syndrome, unspecified; M81.0 Age-related osteoporosis without current pathological fracture; Z86.73 Personal history of transient ischemic attack (TIA), and cerebral infarction without residual deficits; Z95.0 Presence of cardiac pacemaker; Z79.84 Long term (current) use of oral hypoglycemic drugs
CPT/HCPCS: 36415; 80053; 81001; 85025; 93005; 99283

== ENCOUNTER 2023-04-10 12:39 | Emergency (ER) | payer MEDICARE, SELFPAY ==
[2023-04-10 12:54] VITALS: BP 133/67; PULSE 65; RESP 16; TEMP 36.4; O2SAT 100
--- NOTE | 2023-04-10 13:07 | ECG_ITS ---
Measurements Intervals [place] Rate: 75 P: 8 [place]: 244 QRS: -75 QRSD: 147 T: 81 QT: 384 QTc: 430 Interpretive Statements ELECTRONIC ATRIAL PACEMAKER ELECTRONIC VENTRICULAR PACEMAKER BASELINE ARTIFACT- I, II, AVR, AVL, AVF, V1 NO FURTHER INTERPRETATION IS POSSIBLE ATYPICAL ECG COMPARED TO ECG 03/27/2023 10:12:10 NO SIGNIFICANT CHANGES Electronically Signed On 04-10-2023 13:25:02 CDT by Bobby Jacques D.O.
[2023-04-10 13:27] LABS: Basophils Absolute Auto 0.1 K/mm3 (0.0-0.1); Basophils Percent Auto 0.4 % (0.2-1.2); Eosinophils Absolute Auto 0.1 K/mm3 (0-0.3); Eosinophils Percent Auto 1.1 % (0-4.4); Hemoglobin 11.9 g/dL (12.0-15.0); Immature Granulocyte Absolute 0.04 K/mm3 (0.00-0.031); Immature Granulocyte Percent A 0.4 % (0-0.5); Lymphocytes Absolute Auto 1.84 K/mm3 (0.9-3.2); Lymphocytes Percent Auto 16.3 % (18.3-44.2); Mean Corpuscular HGB Conc 32.2 g/dl (32-36); Mean Corpuscular Hemoglobin 27.9 pg (26-34); Mean Corpuscular Volume 86.9 fl (80-100); Monocytes Absolute Auto 0.7 K/mm3 (0.1-0.6); Monocytes Percent Auto 5.9 % (2.6-8.5); Neutrophils Absolute Auto 8.6 K/mm3 (1.3-6.7); Neutrophils Percent Auto 75.9 % (45.5-73.1); Platelet Count Result 261 k/mm3 (150-375); Red Blood Count 4.26 M/mm3 (4.2-5.4); Red Cell Distribution Width 14.5 % (11.5-14.5); White Blood Count 11.3 K/mm3 (4.5-10.0)
[2023-04-10 13:36] LABS: Alanine Aminotransferase 21 U/L (6-35); Albumin Level 4.6 g/dL (3.5-5.1); Alkaline Phosphatase 74 U/L (38-126); Anion Gap 8 mmol/L (8-16); Aspartate Amino Transferase 25 U/L (14-36); Bilirubin,Total 0.5 mg/dL (0.2-1.3); Blood Urea Nitrogen 14 mg/dL (7-17); Calcium 9.7 mg/dL (8.4-10.2); Carbon Dioxide 24 mmol/L (22-30); Chloride 103 mmol/L (98-107); Estimated Glomerular Filt Rate > 60; Glucose 197 mg/dL (65-110); Lipase 76 U/L (23-300); Potassium 3.9 mmol/L (3.4-5.0); Sodium 135 mmol/L (137-145)
[2023-04-10 14:38] LABS: Appearance Urine Clear (Clear); Bacteria Urine None Seen /hpf; Bilirubin Urine Negative (Negative); Blood Urine Negative (Negative); Color Urine Yellow (Yellow); Glucose Urine UA 3+ mg/dL (Negative); Ketones Urine Trace mg/dL (Negative); Leukocyte Esterase Ur Trace LEU/UL (Negative); Nitrate Urine Negative (Negative); Non Pathogenic Casts 0-2; Protein Urine Negative (Negative); RBC Urine 0-2 /hpf (0-2); Specific Grav Ur 1.028 (1.001-1.035); Squamous Epithelial Cell Urine Occasional /hpf (Few); Urobilinogen Urine 0.2 mg/dL (<2.0)
[2023-04-10 14:57] LABS: Add Urine Microscopic? YES
[2023-04-10 15:27] VITALS: BP 117/69
--- NOTE | 2023-04-10 15:54 | ED.DIZZY ---
HPI - Dizziness General Chief Complaint: Dizziness Stated Complaint: dizzy/nausea/vomiting Time Seen by Provider: 04/10/23 15:24 Source: patient Mode of arrival: ambulatory Limitations: no limitations History of Present Illness HPI Narrative: 77-year-old with a history of diabetes, hypertension here with complaints of dizziness on and off for past 1 week patient states that she was dizzy in the morning, and 1 emesis this morning and she started feeling better. She also thinks she might of taken double the dose of her diabetic medication. She denied any chest pain or shortness of breath or abdominal pain. She states that she is feeling much better and wants to go home. Related Data Home Medications Medication Instructions Recorded Confirmed calcium carbonate 600 mg calcium 1,200 mg PO BID 11/27/22 04/03/23 (1,500 mg) tablet (Calcium) cyclosporine 0.05 % eye drops 1 drp EACH EYE BID 11/27/22 04/03/23 (Restasis MultiDose) Allergies Allergy/AdvReac Type Severity Reaction Status Date / Time acetaminophen Allergy Intermediate Nausea and Verified 04/03/23 12:11 Vomiting hydrocodone Allergy Intermediate Nausea and Verified 04/03/23 12:11 Vomiting aspirin AdvReac Intermediate Gastrointestinal Verified 04/03/23 12:11 Upset Review of Systems Review of Systems: All systems reviewed & are unremarkable except as noted in HPI and below Constitutional: Constitutional: Reports no additional constitutional complaints Eyes: Eyes: Reports no additional eye complaints ENT: Reports system reviewed and no additional complaints, except as documented Cardiovascular: Cardiovascular: Reports no additional cardiovascular complaints Respiratory: Respiratory: Reports no additional respiratory complaints Gastrointestinal: Gastrointestinal: Reports as per HPI Musculoskeletal: Musculoskeletal: Reports no additional musculoskeletal complaints Neurologic: Reports dizziness PMFSH Past Medical History Medical History Bilateral low back pain with right-sided sciatica Carotid stenosis, bilateral Cerebrovascular disease, unspecified Cerumen impaction Chronic left shoulder pain Chronic right shoulder pain Diabetes mellitus type 2 with neurological manifestations Encounter for screening mammogram for malignant neoplasm of breast Essential (primary) hypertension Facial pressure Gastro-esophageal reflux disease without esophagitis Headache Hormone replacement therapy (postmenopausal) Hyperlipidemia LDL goal <70 IBS (irritable bowel syndrome) Lung nodule Nontoxic multinodular goiter Osteoporosis Polyosteoarthritis, unspecified Type 2 diabetes mellitus with hyperglycemia Surgical History Surgical History S/P placement of cardiac pacemaker placed 10/28/2020 Family History Family History Mother Hypertension Family history of diabetes mellitus in first degree relative Family history of chronic obstructive pulmonary disease Patient's mother is Diabetes mellitus Sibling Hypertension Diabetes mellitus Father Family history of malignant neoplasm Family history of coronary artery disease Social History Social History Smoking status: Never smoker Second hand tobacco smoke exposure: No Alcohol intake: never Alcohol use details: seldom rare etoh use Substance use: never Substance use type: does not use Lack of Transportation: No Lack of Food: Never True Current Housing: I Have Housing Concerned About Future Housing: No Difficulty Paying Gas/Electric Bills: No Difficulty Paying for Meds: No Currently Unemployed: No Education: Associate Degree Difficulty w/ Childcare or Family Care: No Living arrangements: with family Gender identity (if verbalized by the patient):
[2023-04-10 16:18] VITALS: BP 125/92; PULSE 64; RESP 16; O2SAT 100
== END 2023-04-10 16:19 | disposition home or self-care (01) ==
PROVIDERS: Emergency Provider Family Medicine; PCP Family Medicine
DX: R42 Dizziness and giddiness (principal); I10 Essential (primary) hypertension; I65.23 Occlusion and stenosis of bilateral carotid arteries; E11.49 Type 2 diabetes mellitus with other diabetic neurological complication; E78.5 Hyperlipidemia, unspecified; K21.9 Gastro-esophageal reflux disease without esophagitis; K58.9 Irritable bowel syndrome, unspecified; M81.0 Age-related osteoporosis without current pathological fracture; Z95.0 Presence of cardiac pacemaker; Z79.84 Long term (current) use of oral hypoglycemic drugs
CPT/HCPCS: 36415; 80053; 81001; 83690; 85025; 87086; 87088; 93005; 99283

== ENCOUNTER 2023-05-13 13:09 | Emergency (ER) | payer MEDICARE, SELFPAY ==
[2023-05-13 13:21] VITALS: BP 153/70; PULSE 64; RESP 17; TEMP 36.6; O2SAT 100
[2023-05-13 13:31] LABS: Basophils Percent Auto 0.6 % (0.2-1.2); Eosinophils Absolute Auto 0.1 K/mm3 (0-0.3); Hematocrit 33.9 % (37.0-47.0); Hemoglobin 10.7 g/dL (12.0-15.0); Immature Granulocyte Absolute 0.01 K/mm3 (0.00-0.031); Immature Granulocyte Percent A 0.2 % (0-0.5); Lymphocytes Absolute Auto 2.43 K/mm3 (0.9-3.2); Lymphocytes Percent Auto 36.7 % (18.3-44.2); Mean Corpuscular HGB Conc 31.6 g/dl (32-36); Mean Corpuscular Hemoglobin 28.5 pg (26-34); Mean Corpuscular Volume 90.2 fl (80-100); Mean Platelet Volume 9.6 fl (7.4-10.4); Monocytes Absolute Auto 0.6 K/mm3 (0.1-0.6); Monocytes Percent Auto 8.6 % (2.6-8.5); Neutrophils Absolute Auto 3.5 K/mm3 (1.3-6.7); Neutrophils Percent Auto 51.9 % (45.5-73.1); Platelet Count Result 255 k/mm3 (150-375); Red Blood Count 3.76 M/mm3 (4.2-5.4); Red Cell Distribution Width 15.2 % (11.5-14.5); White Blood Count 6.6 K/mm3 (4.5-10.0)
[2023-05-13 13:45] LABS: Alanine Aminotransferase 18 U/L (6-35); Albumin Level 4.2 g/dL (3.5-5.1); Alkaline Phosphatase 57 U/L (38-126); Anion Gap 4 mmol/L (8-16); Aspartate Amino Transferase 23 U/L (14-36); Bilirubin,Total 0.3 mg/dL (0.2-1.3); Blood Urea Nitrogen 13 mg/dL (7-17); Calcium 9.5 mg/dL (8.4-10.2); Carbon Dioxide 26 mmol/L (22-30); Chloride 108 mmol/L (98-107); Estimated Glomerular Filt Rate > 60; Glucose 123 mg/dL (65-110); Lipase 60 U/L (23-300); Potassium 3.9 mmol/L (3.4-5.0); Sodium 138 mmol/L (137-145)
--- NOTE | 2023-05-13 15:39 | PC.NURSE ---
patient unable to wait longer. states she called her primary MD. patient alert and oriented x4.
== END 2023-05-13 16:00 | disposition left against medical advice (07) ==
PROVIDERS: Emergency Provider Preventive Medicine Aerospace Medicine; PCP Family Medicine
DX: R11.2 Nausea with vomiting, unspecified (principal)
CPT/HCPCS: 36415; 80053; 83690; 85025; 99199

== ENCOUNTER 2023-05-19 08:56 | Emergency (ER) | payer MEDICARE, SELFPAY ==
[2023-05-19] VITALS (15 sets, daily range): BP systolic 147–156; BP diastolic 59–90; PULSE 61–100; RESP 13–21; TEMP 36.4; O2SAT 96–100
--- NOTE | 2023-05-19 09:29 | ECG_ITS ---
Measurements Intervals [place] Rate: 87 P: 56 [place]: 232 QRS: -87 QRSD: 156 T: 92 QT: 397 QTc: 479 Interpretive Statements ATRIAL SENSE- ELECTRONIC VENTRICULAR PACEMAKER BASELINE ARTIFACT- I, II, III, AVR, AVL, AVF, V1-V2 NO FURTHER INTERPRETATION IS POSSIBLE ATYPICAL ECG COMPARED TO ECG 04/10/2023 13:12:25 NO SIGNIFICANT CHANGES Electronically Signed On 05-19-2023 10:34:30 CDT by Bobby Jacques D.O.
--- NOTE | 2023-05-19 09:32 | ED.GENADULT ---
HPI - General Adult General Chief complaint: Abdominal Pain Stated complaint: decreased appetite and weight loss and dizziness Time Seen by Provider: 05/19/23 08:58 Source: patient and old records reviewed Mode of arrival: ambulatory Limitations: no limitations History of Present Illness HPI narrative: Patient is a 77 y/o female, w/ PMH of polio, DM, anxiety, HTN, IBS, who presents to the ED with multiple complaints. Patient reports having worsening anxiety over the last 3 to 4 months. She states she has had several different stressors in her life with marital and family problems. Patient also reports having intermittent dizziness for the last 3 to 4 months, intermittent nausea, intermittent upper abdominal pain. She complains of nausea currently, but denies any current dizziness or abdominal pain. Per records, patient has been seen in the ED several times before for nausea and dizziness. Work-ups have been reassuring. She has previously been prescribed Zofran for the nausea, but patient denied relief of this. Patient has also seen her primary care provider several times this year for different complaints. She has not been taking her Buspar per the records. She has also declined referral to psychiatry. She was also referred to GI but has not followed up. Related Data Home Medications Medication Instructions Recorded Confirmed calcium carbonate 600 mg calcium 1,200 mg PO BID 11/27/22 04/12/23 (1,500 mg) tablet (Calcium) cyclosporine 0.05 % eye drops 1 drp EACH EYE BID 11/27/22 04/12/23 (Restasis MultiDose) Allergies Allergy/AdvReac Type Severity Reaction Status Date / Time acetaminophen AdvReac Intermediate Nausea and Verified 05/19/23 10:08 Vomiting aspirin AdvReac Intermediate Gastrointestinal Verified 05/19/23 09:02 Upset hydrocodone AdvReac Intermediate Nausea and Verified 05/19/23 10:08 Vomiting Review of Systems Review of Systems: CONSTITUTIONAL: Denies fever, chills, or sweats. CARDIOVASCULAR: Denies chest pain. RESPIRATORY: Denies dyspnea. GASTROINTESTINAL: See HPI. GENITOURINARY: Denies dysuria or hematuria. NEUROLOGIC: See HPI. PSYCHIATRIC: See HPI. All systems reviewed & are unremarkable except as noted in HPI and below PMFSH Past Medical History Medical History Bilateral low back pain with right-sided sciatica Carotid stenosis, bilateral Cerebrovascular disease, unspecified Cerumen impaction Chronic left shoulder pain Chronic right shoulder pain Diabetes mellitus type 2 with neurological manifestations Encounter for screening mammogram for malignant neoplasm of breast Essential (primary) hypertension Facial pressure Gastro-esophageal reflux disease without esophagitis Headache Hormone replacement therapy (postmenopausal) Hyperlipidemia LDL goal <70 IBS (irritable bowel syndrome) Lung nodule Nontoxic multinodular goiter Osteoporosis Polyosteoarthritis, unspecified Type 2 diabetes mellitus with hyperglycemia Surgical History Surgical History S/P placement of cardiac pacemaker placed 10/28/2020 Family History Family History Mother Hypertension Family history of diabetes mellitus in first degree relative Family history of chronic obstructive pulmonary disease Patient's mother is Diabetes mellitus Sibling Hypertension Diabetes mellitus Father Family history of malignant neoplasm Family history of coronary artery disease Social History Social History Smoking status: Never smoker Second hand tobacco smoke exposure: No Alcohol intake: never Alcohol use details: seldom rare etoh use Substance use: never Substance use type: does not use Lack of Transportation: No Lack of Food: Never True Current Housing:
[2023-05-19 09:46] LABS: Basophils Absolute Auto 0.1 K/mm3 (0.0-0.1); Basophils Percent Auto 0.5 % (0.2-1.2); Eosinophils Absolute Auto 0.1 K/mm3 (0-0.3); Eosinophils Percent Auto 1.1 % (0-4.4); Hematocrit 38.2 % (37.0-47.0); Hemoglobin 12.1 g/dL (12.0-15.0); Immature Granulocyte Absolute 0.04 K/mm3 (0.00-0.031); Immature Granulocyte Percent A 0.4 % (0-0.5); Lymphocytes Absolute Auto 3.42 K/mm3 (0.9-3.2); Lymphocytes Percent Auto 30.8 % (18.3-44.2); Mean Corpuscular HGB Conc 31.7 g/dl (32-36); Mean Corpuscular Hemoglobin 28.5 pg (26-34); Mean Corpuscular Volume 89.9 fl (80-100); Mean Platelet Volume 10.1 fl (7.4-10.4); Monocytes Absolute Auto 0.6 K/mm3 (0.1-0.6); Monocytes Percent Auto 5.4 % (2.6-8.5); Neutrophils Absolute Auto 6.9 K/mm3 (1.3-6.7); Neutrophils Percent Auto 61.8 % (45.5-73.1); Platelet Count Result 290 k/mm3 (150-375); Red Blood Count 4.25 M/mm3 (4.2-5.4); Red Cell Distribution Width 15.1 % (11.5-14.5); White Blood Count 11.1 K/mm3 (4.5-10.0)
[2023-05-19 09:57] LABS: Alanine Aminotransferase 21 U/L (6-35); Albumin Level 4.9 g/dL (3.5-5.1); Alkaline Phosphatase 90 U/L (38-126); Anion Gap 13 mmol/L (8-16); Aspartate Amino Transferase 31 U/L (14-36); Bilirubin,Total 0.6 mg/dL (0.2-1.3); Blood Urea Nitrogen 28 mg/dL (7-17); Calcium 10.6 mg/dL (8.4-10.2); Carbon Dioxide 20 mmol/L (22-30); Chloride 105 mmol/L (98-107); Estimated Glomerular Filt Rate > 60; Glucose 240 mg/dL (65-110); Lipase 150 U/L (23-300); Potassium 4.5 mmol/L (3.4-5.0); Sodium 138 mmol/L (137-145)
[2023-05-19 10:03] LABS: Appearance Urine Clear (Clear); Bilirubin Urine Negative (Negative); Blood Urine Negative (Negative); Color Urine Yellow (Yellow); Glucose Urine UA 3+ mg/dL (Negative); Ketones Urine Negative (Negative); Leukocyte Esterase Ur Negative LEU/UL (Negative); Nitrate Urine Negative (Negative); Protein Urine Negative (Negative); Specific Grav Ur 1.025 (1.001-1.035); Urobilinogen Urine 0.2 mg/dL (<2.0); pH Urine 5.5 (5.0-9.0)
[2023-05-19 10:07] LABS: Add Urine Microscopic? NO
[2023-05-19] MEDS: SODIUM CHLORIDE 0.9% IV 1,000 ML 999 ML IV CONT (10:17)
[2023-05-19] MEDS: BELLADONNA ALK/PHENOB ELIX 10 ML, MAG HYDROX/ALUMINUM HYD/SIMETH 30 ML, LIDOCAINE HCL 2... PO (10:17)
[2023-05-19] MEDS: ONDANSETRON INJ 4 MG/2 ML VIAL IV PUSH (10:25)
[2023-05-19] MEDS: ACETAMINOPHEN 500 MG TABLET 1000 MG PO (11:31)
[2023-05-19] MEDS: METOCLOPRAMIDE HCL INJ 10 MG/2 ML VIAL IV PUSH (11:32)
[2023-05-19] MEDS: CARBAMIDE PEROXIDE 6.5% OT SOLN 15 ML BTL 5 DROP LEFT EAR (12:13)
== END 2023-05-19 13:46 | disposition home or self-care (01) ==
PROVIDERS: Emergency Provider Physician Assistant; PCP Family Medicine
DX: F41.9 Anxiety disorder, unspecified (principal); R11.0 Nausea; R42 Dizziness and giddiness; H61.22 Impacted cerumen, left ear; E11.65 Type 2 diabetes mellitus with hyperglycemia; T38.3X6A Underdosing of insulin and oral hypoglycemic [antidiabetic] drugs, initial encounter; T45.0X6A Underdosing of antiallergic and antiemetic drugs, initial encounter; T43.596A Underdosing of other antipsychotics and neuroleptics, initial encounter; Z91.128 Patient's intentional underdosing of medication regimen for other reason; I10 Essential (primary) hypertension; I65.23 Occlusion and stenosis of bilateral carotid arteries; E11.49 Type 2 diabetes mellitus with other diabetic neurological complication; E78.5 Hyperlipidemia, unspecified; K21.9 Gastro-esophageal reflux disease without esophagitis; K58.9 Irritable bowel syndrome, unspecified; M81.0 Age-related osteoporosis without current pathological fracture; M19.90 Unspecified osteoarthritis, unspecified site; Z86.12 Personal history of poliomyelitis; Z95.0 Presence of cardiac pacemaker; Z79.84 Long term (current) use of oral hypoglycemic drugs
CPT/HCPCS: 36415; 80053; 81003; 83690; 85025; 93005; 96361; 96374; 96375; 99284; A9270; J2405; J2765; J7030

== ENCOUNTER 2023-05-27 11:24 | Emergency (ER) | payer MEDICARE, SELFPAY ==
[2023-05-27 11:37] VITALS: BP 136/54; PULSE 74; RESP 20; TEMP 36.6; O2SAT 100
--- NOTE | 2023-05-27 13:22 | PC.NURSE ---
patient states she is feeling better and does not need to be seen in the ED today. patient came with and thought they would be seen together and discharged at the same time. she requested to go to her husbands room and be taken off the tracker so she can take her home when he is discharged.
== END 2023-05-27 13:23 | disposition left against medical advice (07) ==
PROVIDERS: PCP Family Medicine
DX: R51.9 Headache, unspecified (principal)
CPT/HCPCS: 99199

== ENCOUNTER 2023-06-12 08:34 | Emergency (ER) | payer MEDICARE, SELFPAY ==
[2023-06-12] VITALS (8 sets, daily range): BP systolic 131–164; BP diastolic 57–84; PULSE 62–76; RESP 14–19; TEMP 36.4–37.1; O2SAT 96–100
--- NOTE | ~2023-06-12 | XR_ITS ---
Clinical Indication: Weakness AP and lateral views of the chest: Comparison: 10/02/2022 Findings: The lungs are clear, without evidence of focal consolidation or pleural effusion. Cardiome diastinal silhouette is within normal limits. Pacemaker remains in place, with leads in stable positi on. Right shoulder arthroplasty present. Impression: Clear lungs. Stable pacemaker device. Lead positioning is unchanged. Reviewed, dictated and finalized at location . Impression: Clear lungs. Stable pacemaker device. Lead positioning is unchanged.
--- NOTE | ~2023-06-12 | CT_ITS ---
EXAMINATION: CT abdomen pelvis w con DATE: 06/12/2023 11:47 INDICATION: Upper abdominal pain TECHNIQUE: Computed tomography (CT) of the abdomen and pelvis was performed with 100 mL Omnipaque-350 intravenous contrast. Automated exposure control and iterative reconstruction technique were employe d. The dose-length product was 227.90 mGy-cm. COMPARISON: 11/06/2022 FINDINGS: Respiratory motion at the lung bases with small calcified left lower lobe nodule consistent with old granulomatous disease. Heart size is normal. No pericardial or pleural effusion. Cardiac pacemaker wi th 2 leads, one of which loops caudally into the intrahepatic segment of the inferior vena cava with distal tip near the apex of the right ventricle and the second. Loop into the right ventricle before extending back cephalad with distal tip likely at the right atrial appendage as seen on the technical [employer] top ogram. Postoperative change of prior Kadeem fundoplication. Cholecystectomy clips at the gallbladder fossa. Liver, spleen, pancreas and bilateral adrenal glands are normal. Small region of cortical scarring at the upper pole of the right kidney likely scrotal pr ior infection or infarction. Small parapelvic cysts versus mild hydronephrosis at the left kidney. No evident obstructing stones or masses. Bladder is normal. There are few scattered colonic diverticula without adjacent from trace stranding to suggest diverticulitis. No bowel obstruction. Normal append ix. The uterus is not identified and has likely been surgically resected. No free intraperitoneal gas or fluid. No pathologically enlarged abdominal or pelvic lymphadenopathy. Mild S-shaped curvature of the lumbar spine with severe spondylosis. IMPRESSION: 1. Parapelvic cysts versus mild hydronephrosis at the left kidney with no evident obstructing stone o r mass. Reviewed, dictated and finalized at location A. IMPRESSION: 1. Parapelvic cysts versus mild hydronephrosis at the left kidney with no evide nt obstructing stone or mass.
[2023-06-12 09:20] LABS: Appearance Urine Cloudy (Clear); Bacteria Urine None Seen /hpf; Bilirubin Urine Negative (Negative); Blood Urine Negative (Negative); Color Urine Yellow (Yellow); Glucose Urine UA Trace mg/dL (Negative); Ketones Urine Trace mg/dL (Negative); Leukocyte Esterase Ur Negative LEU/UL (Negative); Nitrate Urine Negative (Negative); Non Pathogenic Casts 0-2; Protein Urine Negative (Negative); RBC Urine 0-2 /hpf (0-2); Specific Grav Ur 1.025 (1.001-1.035); Squamous Epithelial Cell Urine None seen /hpf (Few); Urobilinogen Urine 0.2 mg/dL (<2.0); WBC Urine 0-5 /hpf; pH Urine 5.5 (5.0-9.0)
[2023-06-12 09:22] LABS: Add Urine Microscopic? YES
[2023-06-12 09:50] LABS: Basophils Absolute Auto 0.1 K/mm3 (0.0-0.1); Basophils Percent Auto 0.6 % (0.2-1.2); Eosinophils Absolute Auto 0.1 K/mm3 (0-0.3); Eosinophils Percent Auto 1.3 % (0-4.4); Hematocrit 35.3 % (37.0-47.0); Hemoglobin 10.9 g/dL (12.0-15.0); Immature Granulocyte Absolute 0.02 K/mm3 (0.00-0.031); Immature Granulocyte Percent A 0.3 % (0-0.5); Lymphocytes Absolute Auto 2.29 K/mm3 (0.9-3.2); Lymphocytes Percent Auto 29.7 % (18.3-44.2); Mean Corpuscular HGB Conc 30.9 g/dl (32-36); Mean Corpuscular Hemoglobin 27.9 pg (26-34); Mean Corpuscular Volume 90.5 fl (80-100); Monocytes Absolute Auto 0.5 K/mm3 (0.1-0.6); Monocytes Percent Auto 6.2 % (2.6-8.5); Neutrophils Absolute Auto 4.8 K/mm3 (1.3-6.7); Neutrophils Percent Auto 61.9 % (45.5-73.1); Platelet Count Result 286 k/mm3 (150-375); Red Cell Distribution Width 14.8 % (11.5-14.5); White Blood Count 7.7 K/mm3 (4.5-10.0)
[2023-06-12 10:01] LABS: Alanine Aminotransferase 22 U/L (6-35); Albumin Level 4.5 g/dL (3.5-5.1); Alkaline Phosphatase 68 U/L (38-126); Anion Gap 13 mmol/L (8-16); Aspartate Amino Transferase 25 U/L (14-36); Bilirubin,Total 0.4 mg/dL (0.2-1.3); Blood Urea Nitrogen 19 mg/dL (7-17); Calcium 9.7 mg/dL (8.4-10.2); Carbon Dioxide 23 mmol/L (22-30); Chloride 103 mmol/L (98-107); Estimated Glomerular Filt Rate > 60; Glucose 216 mg/dL (65-110); Lipase 117 U/L (23-300); Sodium 139 mmol/L (137-145)
--- NOTE | 2023-06-12 10:08 | ECG_ITS ---
Measurements Intervals [place] Rate: 64 P: 175 [place]: 228 QRS: -75 QRSD: 159 T: 82 QT: 431 QTc: 445 Interpretive Statements ELECTRONIC ATRIAL PACEMAKER ELECTRONIC VENTRICULAR PACEMAKER BASELINE ARTIFACT- I, II, AVR, AVL, V1 NO FURTHER INTERPRETATION IS POSSIBLE ATYPICAL ECG COMPARED TO ECG 05/19/2023 09:59:06 NO SIGNIFICANT CHANGES Electronically Signed On 06-12-2023 12:07:03 CDT by Bobby Jacques D.O.
[2023-06-12] MEDS: SODIUM CHLORIDE 0.9% IV 1,000 ML 999 ML IV CONT (10:25)
[2023-06-12 10:48] LABS: Troponin I < 0.012 ng/mL (0.000-0.034)
--- NOTE | 2023-06-12 11:32 | ED.GENADULT ---
HPI - General Adult General Chief complaint: Nausea/Vomiting/Diarrhea Stated complaint: nausea for several months Time Seen by Provider: 06/12/23 09:08 Source: patient and RN notes reviewed Mode of arrival: ambulatory Limitations: no limitations History of Present Illness HPI narrative: This is a 77 year old female with history of pacemaker, hypertension, DM who presents for evaluation of worsening abdominal pain and fatigue. Patient reports she has been dealing with upper abdominal pain for a couple of months. SHe is also been having chronic diarrhea. She is currently being evaluated by PCP and she is being referred to GI. She states she has already been to ER 4 times for her GI issues. She states she is back today because her abdominal pain was worse and she also reports weakness. She had atypical midsternal nonradiating chest pain. She denies fever or chills. She has not have any recent vomiting. She denies blood in her stool Related Data Home Medications Medication Instructions Recorded Confirmed calcium carbonate 600 mg calcium 1,200 mg PO BID 11/27/22 04/12/23 (1,500 mg) tablet (Calcium) cyclosporine 0.05 % eye drops 1 drp EACH EYE BID 11/27/22 04/12/23 (Restasis MultiDose) Allergies Allergy/AdvReac Type Severity Reaction Status Date / Time acetaminophen AdvReac Intermediate Nausea and Verified 06/12/23 09:44 Vomiting aspirin AdvReac Intermediate Gastrointestinal Verified 06/12/23 09:44 Upset hydrocodone AdvReac Intermediate Nausea and Verified 06/12/23 09:44 Vomiting Review of Systems Constitutional: Constitutional: Reports weakness Cardiovascular: Cardiovascular: Denies syncope, Denies rapid heart rate, Denies irregular heart rhythm, Denies leg edema and Denies dyspnea Respiratory: Respiratory: Denies chest congestion, Denies hemoptysis, Denies excessive phlegm production and Denies dyspnea Gastrointestinal: Gastrointestinal: Reports abdominal pain, Denies hematochezia, Reports diarrhea, Reports nausea and Reports vomiting Genitourinary: Genitourinary: Denies hematuria and Denies dysuria Musculoskeletal: Musculoskeletal: Denies joint swelling, Denies loss of height and Denies muscle weakness Neurologic: Denies syncope, Denies focal weakness and Denies weakness PMFSH Past Medical History Medical History Bilateral low back pain with right-sided sciatica Carotid stenosis, bilateral Cerebrovascular disease, unspecified Cerumen impaction Chronic left shoulder pain Chronic right shoulder pain Diabetes mellitus type 2 with neurological manifestations Encounter for screening mammogram for malignant neoplasm of breast Essential (primary) hypertension Facial pressure Gastro-esophageal reflux disease without esophagitis Headache Hormone replacement therapy (postmenopausal) Hyperlipidemia LDL goal <70 IBS (irritable bowel syndrome) Lung nodule Nontoxic multinodular goiter Osteoporosis Polyosteoarthritis, unspecified Type 2 diabetes mellitus with hyperglycemia Surgical History Surgical History S/P placement of cardiac pacemaker placed 10/28/2020 Family History Family History Mother Hypertension Family history of diabetes mellitus in first degree relative Family history of chronic obstructive pulmonary disease Patient's mother is Diabetes mellitus Sibling Hypertension Diabetes mellitus Father Family history of malignant neoplasm Family history of coronary artery disease Social History Social History Smoking status: Never smoker Second hand tobacco smoke exposure: No Alcohol intake: never Alcohol use details: seldom rare etoh use Substance use: never Substance use type: does not use Lack of Transportation: No Lack
== END 2023-06-12 13:11 ==
PROVIDERS: Emergency Provider General Practice; PCP Family Medicine
DX: R10.10 Upper abdominal pain, unspecified (principal); G89.29 Other chronic pain; I10 Essential (primary) hypertension; E11.49 Type 2 diabetes mellitus with other diabetic neurological complication; I65.23 Occlusion and stenosis of bilateral carotid arteries; E78.5 Hyperlipidemia, unspecified; K21.9 Gastro-esophageal reflux disease without esophagitis; M81.0 Age-related osteoporosis without current pathological fracture; M19.90 Unspecified osteoarthritis, unspecified site; Z95.0 Presence of cardiac pacemaker; Z79.84 Long term (current) use of oral hypoglycemic drugs
CPT/HCPCS: 36415; 71046; 74177; 80053; 81001; 83690; 84484; 85025; 93005; 96360; 99284; J7030; Q9967

== ENCOUNTER 2023-06-24 11:02 | Emergency (ER) | payer MEDICARE, SELFPAY ==
[2023-06-24] VITALS (8 sets, daily range): BP systolic 105–155; BP diastolic 59–76; PULSE 62–80; RESP 13–19; TEMP 36.6; O2SAT 96–100
--- NOTE | 2023-06-24 11:18 | ECG_ITS ---
Measurements Intervals [place] Rate: 77 P: 154 [place]: 232 QRS: -75 QRSD: 162 T: 87 QT: 397 QTc: 450 Interpretive Statements Normal sinus rhythm versus possible eLECTRONIC ATRIAL PACEMAKER Possible eLECTRONIC VENTRICULAR PACEMAKER ABNORMAL RHYTHM ECG COMPARED TO ECG 06/12/2023 10:28:26 NO SIGNIFICANT CHANGES Electronically Signed On 06-24-2023 14:55:26 CDT by Kerline Ty M.D.
[2023-06-24 11:33] LABS: Glucose Point of Care 170 mg/dl (65-105)
--- NOTE | 2023-06-24 11:35 | ED.GENADULT ---
HPI - General Adult General Chief complaint: Overdose <TYREE Penn Last Filed: 06/24/23 15:18> Stated complaint: accidental overdose <TYREE Penn Last Filed: 06/24/23 15:18> Time Seen by Provider: 06/24/23 11:20 <Michael Joshi PA-C - Last Filed: 06/24/23 15:18> Source: patient <TYREE Penn Last Filed: 06/24/23 15:18> Mode of arrival: ambulatory <TYREE Penn Last Filed: 06/24/23 15:18> Limitations: no limitations <TYREE Penn Last Filed: 06/24/23 15:18> History of Present Illness HPI narrative: This is a 77-year-old female with PMH CVA, type 2 diabetes, HTN, anxiety who presents to the ED with chief complaint of possible overdose. Patient states that she took her morning glipizide, metformin, losartan as normal earlier this morning. She then ate some food and was watching TV. She states she forgot that she had already taken her meds this morning and then took them again just prior to arrival. She states that before taking the second doses of each she was developing a little bit of a headache. After taking the second dose that she states she started to feel a little dizzy/lightheaded. She states that she has since she has been here her symptoms are starting to resolve. Denies syncope. Denies chest pain, shortness of breath, abdominal pain, nausea, vomiting, urinary problems. Per chart review she takes 100 mg of losartan, 1000 mg of metformin BID, glimepiride 1mg BID. Bedside glucose upon arrival was 170. <TYREE Penn Last Filed: 06/24/23 15:18> Related Data Home medications: Home Medications Medication Instructions Recorded Confirmed calcium carbonate 600 mg calcium 1,200 mg PO BID 11/27/22 04/12/23 (1,500 mg) tablet (Calcium) cyclosporine 0.05 % eye drops 1 drp EACH EYE BID 11/27/22 04/12/23 (Restasis MultiDose) <TYREE Penn Last Filed: 06/24/23 15:18> Allergies/adverse reactions: Allergies Allergy/AdvReac Type Severity Reaction Status Date / Time acetaminophen AdvReac Intermediate Nausea and Verified 06/20/23 11:26 Vomiting aspirin AdvReac Intermediate Gastrointestinal Verified 06/20/23 11:26 Upset hydrocodone AdvReac Intermediate Nausea and Verified 06/20/23 11:26 Vomiting <Michael Joshi PA-C - Last Filed: 06/24/23 15:18> Review of Systems Review of Systems: All systems as dictated in HPI <TYREE Penn Last Filed: 06/24/23 15:18> [facility] Past Medical History Medical History: Medical History Bilateral low back pain with right-sided sciatica Carotid stenosis, bilateral Cerebrovascular disease, unspecified Cerumen impaction Chronic left shoulder pain Chronic right shoulder pain Diabetes mellitus type 2 with neurological manifestations Encounter for screening mammogram for malignant neoplasm of breast Essential (primary) hypertension Facial pressure Gastro-esophageal reflux disease without esophagitis Headache Hormone replacement therapy (postmenopausal) Hyperlipidemia LDL goal <70 IBS (irritable bowel syndrome) Lung nodule Nontoxic multinodular goiter Osteoporosis Polyosteoarthritis, unspecified Type 2 diabetes mellitus with hyperglycemia <TYREE Penn Last Filed: 06/24/23 15:18> Surgical History Surgical History: Surgical History S/P placement of cardiac pacemaker placed 10/28/2020 <TYREE Penn Last Filed: 06/24/23 15:18> Family History Family History: Family History Mother Hypertension Family history of diabetes mellitus in first degree relative Family history of chronic obstructive pulmonary disease Patient's mother is Diabetes mellitus Sibling Hypertension Diabetes mellitus Father Family history of m
--- NOTE | 2023-06-24 11:43 | PC.NURSE ---
This RN called Poison Control at [phone] and spoke with Angela CARPENTER regarding pt. Angela CARPENTER advised the following - Losartan: maybe fluids if pt cannot eat or drink, pt denies N&V at this time, pt did eat breakfast at time of taking medications - Metformin: Skip today's later dose - Glimepiride: Watch pt blood glucose levels and give pt protein source in addition to carbs if she becomes hypoglycemic, BS in ED 170 Royer Lucero PA-C made aware of Poison Control recommendations Pt remains on tele monitor at this time
[2023-06-24] MEDS: SODIUM CHLORIDE 0.9% IV 1,000 ML 999 ML IV CONT (12:45)
[2023-06-24 12:47] LABS: Basophils Percent Auto 0.6 % (0.2-1.2); Eosinophils Absolute Auto 0.2 K/mm3 (0-0.3); Eosinophils Percent Auto 2.1 % (0-4.4); Hematocrit 34.4 % (37.0-47.0); Hemoglobin 10.6 g/dL (12.0-15.0); Immature Granulocyte Absolute 0.01 K/mm3 (0.00-0.031); Immature Granulocyte Percent A 0.1 % (0-0.5); Lymphocytes Absolute Auto 2.29 K/mm3 (0.9-3.2); Mean Corpuscular HGB Conc 30.8 g/dl (32-36); Mean Corpuscular Hemoglobin 27.5 pg (26-34); Mean Corpuscular Volume 89.1 fl (80-100); Mean Platelet Volume 9.6 fl (7.4-10.4); Monocytes Absolute Auto 0.5 K/mm3 (0.1-0.6); Monocytes Percent Auto 7.4 % (2.6-8.5); Neutrophils Absolute Auto 4.1 K/mm3 (1.3-6.7); Neutrophils Percent Auto 57.8 % (45.5-73.1); Platelet Count Result 265 k/mm3 (150-375); Red Blood Count 3.86 M/mm3 (4.2-5.4); Red Cell Distribution Width 14.5 % (11.5-14.5); White Blood Count 7.2 K/mm3 (4.5-10.0)
[2023-06-24 12:50] LABS: Appearance Urine Clear (Clear); Bilirubin Urine Negative (Negative); Blood Urine Negative (Negative); Color Urine Yellow (Yellow); Glucose Urine UA Negative (Negative); Ketones Urine Negative (Negative); Leukocyte Esterase Ur Negative LEU/UL (Negative); Nitrate Urine Negative (Negative); Protein Urine Negative (Negative); Specific Grav Ur 1.008 (1.001-1.035); Urobilinogen Urine 0.2 mg/dL (<2.0); pH Urine 6.5 (5.0-9.0)
[2023-06-24 12:55] LABS: Add Urine Microscopic? NO
[2023-06-24 12:59] LABS: Alanine Aminotransferase 18 U/L (6-35); Albumin Level 4.2 g/dL (3.5-5.1); Alkaline Phosphatase 57 U/L (38-126); Anion Gap 5 mmol/L (8-16); Aspartate Amino Transferase 25 U/L (14-36); Bilirubin,Total 0.4 mg/dL (0.2-1.3); Blood Urea Nitrogen 16 mg/dL (7-17); Calcium 9.6 mg/dL (8.4-10.2); Carbon Dioxide 26 mmol/L (22-30); Chloride 104 mmol/L (98-107); Estimated Glomerular Filt Rate > 60; Glucose 114 mg/dL (65-110); Sodium 135 mmol/L (137-145)
--- NOTE | 2023-06-24 14:05 | PC.NURSE ---
Pt BS 76 per Adi CLEMENTS gave pt apple juice, will recheck BS
[2023-06-24 14:06] LABS: Glucose Point of Care 76 mg/dl (65-105)
--- NOTE | 2023-06-24 14:41 | PC.NURSE ---
poison control recommend increased caloric intake for 24 hrs pt also able to call [place] [facility] if questions arise
[2023-06-24 14:44] LABS: Glucose Point of Care 176 mg/dl (65-105)
--- NOTE | 2023-06-24 14:44 | PC.NURSE ---
BS 176
== END 2023-06-24 15:20 | disposition home or self-care (01) ==
PROVIDERS: Emergency Provider Physician Assistant; PCP Family Medicine
DX: T46.5X1A Poisoning by other antihypertensive drugs, accidental (unintentional), initial encounter (principal); T38.3X1A Poisoning by insulin and oral hypoglycemic [antidiabetic] drugs, accidental (unintentional), initial encounter; I65.23 Occlusion and stenosis of bilateral carotid arteries; I10 Essential (primary) hypertension; I67.9 Cerebrovascular disease, unspecified; E11.49 Type 2 diabetes mellitus with other diabetic neurological complication; E78.5 Hyperlipidemia, unspecified; K21.9 Gastro-esophageal reflux disease without esophagitis; K58.9 Irritable bowel syndrome, unspecified; M81.0 Age-related osteoporosis without current pathological fracture; Z95.0 Presence of cardiac pacemaker; Z79.84 Long term (current) use of oral hypoglycemic drugs
CPT/HCPCS: 36415; 80053; 81003; 82948; 85025; 93005; 95863; 96360; 99283; J7030

== ENCOUNTER 2023-06-24 21:39 | Emergency (ER) | payer MEDICARE, SELFPAY ==
--- NOTE | ~2023-06-24 | CT_ITS ---
CT head without contrast Indication: Headache COMPARISON: 10/26/2020 Technique: Serial scans were obtained through the brain without the administration of contrast. Dose reduction technique was used on this scan by utilizing automated exposure control and iterative recon struction technique. The dose-length product (DLP) was 605.33 mGy-cm. Findings: There is no evidence of intracranial hemorrhage, mass lesion, or acute infarct. The ventri cles and subarachnoid spaces are unremarkable. Minimal low attenuation regions are seen within the pe riventricular white matter bilaterally, likely representing changes from chronic microvascular ischem ic disease. There is no evidence of edema, mass effect or midline shift. The visualized paranasal s inuses and mastoid air cells are clear. Impression: No intracranial hemorrhage, mass, or acute infarct. Minimal chronic white matter changes, as above. Reviewed, dictated and finalized at location . Impression: No intracranial hemorrhage, mass, or acute infarct. Minimal chronic white matter changes, as above.
[2023-06-24 21:49] VITALS: BP 149/70; PULSE 69; RESP 16; TEMP 36.6; O2SAT 100
[2023-06-24 22:02] LABS: Glucose Point of Care 97 mg/dl (65-105)
--- NOTE | 2023-06-24 22:40 | ED.RECABL ---
HPI - Recheck/Abnormal Lab/Rx General Chief Complaint: Recheck/Abnormal Lab/Rx Stated Complaint: low bg Time Seen by Provider: 06/24/23 21:55 History of Present Illness HPI narrative: 77-year-old female with history of type 2 diabetes, IBS, hyperlipidemia, GERD, hypertension, CHRISTIANA reports for evaluation to have her glucose checked. Patient was seen earlier in the ED today for an accidental overdose of her diabetes medications. She was monitored the ED for multiple hours and discharged home and advised to check her glucose every 2 hours. Patient states she fell asleep and woke up in a panic because she missed her glucose check. States she came to the ED because she was having a headache and was panicking, therefore could not check her blood glucose. She reports a headache for the past 3 weeks throughout her whole head. She does state that she hit her head on her car door a few days ago, did not lose consciousness. No vomiting, fever, nuchal rigidity, focal numbness or weakness, difficulty walking. She has not followed up with her PCP regarding her persistent headache. Related Data Home Medications Medication Instructions Recorded Confirmed calcium carbonate 600 mg calcium 1,200 mg PO BID 11/27/22 04/12/23 (1,500 mg) tablet (Calcium) cyclosporine 0.05 % eye drops 1 drp EACH EYE BID 11/27/22 04/12/23 (Restasis MultiDose) Allergies Allergy/AdvReac Type Severity Reaction Status Date / Time acetaminophen AdvReac Intermediate Nausea and Verified 06/20/23 11:26 Vomiting aspirin AdvReac Intermediate Gastrointestinal Verified 06/20/23 11:26 Upset hydrocodone AdvReac Intermediate Nausea and Verified 06/20/23 11:26 Vomiting Review of Systems Review of Systems: CONSTITUTIONAL: Denies fever, chills EYES: Denies visual changes, redness, or discharge. ENT: Denies rhinorrhea, congestion, sore throat, or otalgia. CARDIOVASCULAR: Denies chest pain, palpitations, or edema. RESPIRATORY: Denies cough or dyspnea. GASTROINTESTINAL: Denies abdominal pain, nausea, vomiting, or diarrhea. GENITOURINARY: Denies dysuria or hematuria. SKIN: Denies rash or itching. MUSCULOSKELETAL: Denies back pain, joint pain, or myalgia. NEUROLOGIC: See HPI PSYCHIATRIC: Denies anxiety or depression. [facility] Past Medical History Medical History Bilateral low back pain with right-sided sciatica Carotid stenosis, bilateral Cerebrovascular disease, unspecified Cerumen impaction Chronic left shoulder pain Chronic right shoulder pain Diabetes mellitus type 2 with neurological manifestations Encounter for screening mammogram for malignant neoplasm of breast Essential (primary) hypertension Facial pressure Gastro-esophageal reflux disease without esophagitis Headache Hormone replacement therapy (postmenopausal) Hyperlipidemia LDL goal <70 IBS (irritable bowel syndrome) Lung nodule Nontoxic multinodular goiter Osteoporosis Polyosteoarthritis, unspecified Type 2 diabetes mellitus with hyperglycemia Surgical History Surgical History S/P placement of cardiac pacemaker placed 10/28/2020 Family History Family History Mother Hypertension Family history of diabetes mellitus in first degree relative Family history of chronic obstructive pulmonary disease Patient's mother is Diabetes mellitus Sibling Hypertension Diabetes mellitus Father Family history of malignant neoplasm Family history of coronary artery disease Social History Social History Smoking status: Never smoker Second hand tobacco smoke exposure: No Alcohol intake: never Alcohol use details: seldom rare etoh use Substance use: never Substance use type: does not use Lack of Transportation: No Lack of Food: Never True Cur
[2023-06-24] MEDS: PROCHLORPERAZINE EDISYLATE 10 MG/2 ML VIAL IV PUSH (22:52)
[2023-06-24] MEDS: diphenhydrAMINE HCl INJ 50 MG/ML VIAL 25 MG IV PUSH (22:53)
[2023-06-24] MEDS: KETOROLAC 15 MG/ML VIAL (*BKC) IV PUSH (22:53)
[2023-06-24] MEDS: SODIUM CHLORIDE 0.9% IV 1,000 ML 999 ML IV CONT (23:16)
[2023-06-24 23:20] VITALS: TEMP 36.6
[2023-06-24 23:22] VITALS: O2SAT 99
[2023-06-24 23:30] VITALS: O2SAT 99
--- NOTE | 2023-06-24 23:30 | PC.NURSE ---
Report received from JAYDEN English. Assumed care of patient at this time.
[2023-06-24 23:48] VITALS: O2SAT 99
[2023-06-25 00:07] VITALS: PULSE 65; RESP 17; O2SAT 97
[2023-06-25 00:09] VITALS: BP 124/65; O2SAT 97
[2023-06-25 00:15] VITALS: O2SAT 95
[2023-06-25 00:16] VITALS: BP 119/58; O2SAT 95
[2023-06-25 00:30] VITALS: O2SAT 95
[2023-06-25 00:45] VITALS: RESP 17; O2SAT 100
== END 2023-06-25 01:17 | disposition home or self-care (01) ==
PROVIDERS: Emergency Provider Physician Assistant; PCP Family Medicine
DX: R51.9 Headache, unspecified (principal); I65.23 Occlusion and stenosis of bilateral carotid arteries; I10 Essential (primary) hypertension; I67.9 Cerebrovascular disease, unspecified; E11.49 Type 2 diabetes mellitus with other diabetic neurological complication; E78.5 Hyperlipidemia, unspecified; K21.9 Gastro-esophageal reflux disease without esophagitis; K58.9 Irritable bowel syndrome, unspecified; G47.33 Obstructive sleep apnea (adult) (pediatric); M81.0 Age-related osteoporosis without current pathological fracture; Z95.0 Presence of cardiac pacemaker; Z79.84 Long term (current) use of oral hypoglycemic drugs
CPT/HCPCS: 36415; 70450; 80053; 81003; 82948; 85025; 93005; 95863; 96360; 96361; 96374; 96375; 99284; J0780; J1200; J1885; J7030

== ENCOUNTER 2023-06-25 13:52 | Emergency (ER) | payer MEDICARE, SELFPAY ==
[2023-06-25 13:54] VITALS: BP 141/58; PULSE 74; RESP 18; TEMP 36.5; O2SAT 100
[2023-06-25 14:00] LABS: Glucose Point of Care 175 mg/dl (65-105)
--- NOTE | 2023-06-25 16:00 | ED.GENADULT ---
HPI - General Adult General Chief complaint: Recheck/Abnormal Lab/Rx Stated complaint: elevated blood sugars Time Seen by Provider: 06/25/23 15:18 Source: patient Limitations: no limitations History of Present Illness HPI narrative: Patient presents to the emergency department due to difficulties with her obtaining supplies for blood sugar testing. Patient notes she was in the emergency department yesterday for blood sugar issues, and notes that she is supposed to be checking her blood sugar daily with a glucometer, but her glucometer isn?t working and when she went to the pharmacy, they told her to obtain a prescription from a physician and they would be able to get that to her today if they were able to do so. Patient knows that she uses a glucometer regularly and the one that she has malfunctioned and she also would benefit from having further testing supplies. Patient says she has been taking her medication as prescribed without any recent changes and notes that she is currently on metformin and glimepiride. Patient denies any episodes of hypoglycemia or DKA. Patient knows that overall she?s been feeling well as of late, but is also being seen regularly on an outpatient basis by ophthalmology and an industrial economist in addition to her primary care physician, and she has primary care follow coming up in the near future. Patient does note that she is being evaluated for as an outpatient for a couple of months worth of a generalized feeling of being unwell; however, nothing is currently bothering her that she would like to be evaluated for on an emergency basis. Patient denies fever, changes in urination, polydipsia, cough, chest pain, shortness of breath, nausea, vomiting, diarrhea, abdominal pain, confusion. Related Data Home Medications Medication Instructions Recorded Confirmed calcium carbonate 600 mg calcium 1,200 mg PO BID 11/27/22 04/12/23 (1,500 mg) tablet (Calcium) cyclosporine 0.05 % eye drops 1 drp EACH EYE BID 11/27/22 04/12/23 (Restasis MultiDose) Allergies Allergy/AdvReac Type Severity Reaction Status Date / Time acetaminophen AdvReac Intermediate Nausea and Verified 06/25/23 14:16 Vomiting aspirin AdvReac Intermediate Gastrointestinal Verified 06/25/23 14:16 Upset hydrocodone AdvReac Intermediate Nausea and Verified 06/25/23 14:16 Vomiting PMFSH Past Medical History Medical History Bilateral low back pain with right-sided sciatica Carotid stenosis, bilateral Cerebrovascular disease, unspecified Cerumen impaction Chronic left shoulder pain Chronic right shoulder pain Diabetes mellitus type 2 with neurological manifestations Encounter for screening mammogram for malignant neoplasm of breast Essential (primary) hypertension Facial pressure Gastro-esophageal reflux disease without esophagitis Headache Hormone replacement therapy (postmenopausal) Hyperlipidemia LDL goal <70 IBS (irritable bowel syndrome) Lung nodule Nontoxic multinodular goiter Osteoporosis Polyosteoarthritis, unspecified Type 2 diabetes mellitus with hyperglycemia Surgical History Surgical History S/P placement of cardiac pacemaker placed 10/28/2020 Family History Family History Mother Hypertension Family history of diabetes mellitus in first degree relative Family history of chronic obstructive pulmonary disease Patient's mother is Diabetes mellitus Sibling Hypertension Diabetes mellitus Father Family history of malignant neoplasm Family history of coronary artery disease Social History Social History Smoking status: Never smoker Second hand tobacco smoke exposure: No Alcohol intake: never Alcohol use details: seldom rare etoh use Substance use: never Substance use type
== END 2023-06-25 16:27 | disposition home or self-care (01) ==
PROVIDERS: Emergency Provider Student in an Organized Health Care Education/Training Program; PCP Family Medicine
DX: E11.65 Type 2 diabetes mellitus with hyperglycemia (principal); I65.23 Occlusion and stenosis of bilateral carotid arteries; I10 Essential (primary) hypertension; I67.9 Cerebrovascular disease, unspecified; E11.49 Type 2 diabetes mellitus with other diabetic neurological complication; E78.5 Hyperlipidemia, unspecified; K21.9 Gastro-esophageal reflux disease without esophagitis; K58.9 Irritable bowel syndrome, unspecified; G47.33 Obstructive sleep apnea (adult) (pediatric); M81.0 Age-related osteoporosis without current pathological fracture; Z95.0 Presence of cardiac pacemaker; Z79.84 Long term (current) use of oral hypoglycemic drugs
CPT/HCPCS: 82948; 99283

== ENCOUNTER 2023-07-15 23:52 | Emergency (ER) | payer MEDICARE, SELFPAY ==
[2023-07-15 23:55] VITALS: BP 116/76; PULSE 65; RESP 15; TEMP 36.4; O2SAT 100
--- NOTE | 2023-07-16 00:36 | ED.GENADULT ---
[facility] - General Adult General Chief complaint: Unspecified Stated complaint: may or may not have taken diabetic medication Time Seen by Provider: 07/16/23 00:10 Source: patient Mode of arrival: ambulatory Limitations: no limitations History of Present Illness HPI narrative: This is a 77-year-old female who presents to the ED with chief complaint of of a headache. She also has concern over not taking her blood sugar medications this evening. States she may have missed 1 dose. She reports that she was drinking wine at the [facility] when she started to have a headache and feeling a little dizzy. She states the headache has not gone away. She states this made her anxious knowing that she had missed her blood sugar medications. Denies sudden onset. States this headache is very similar to headache she has had in the past, especially whenever she drinks wine. No worsening with exertion. Denies any recent fevers, chills, neck pain, neck stiffness, LOC, numbness, weakness. Related Data Home Medications Medication Instructions Recorded Confirmed calcium carbonate 600 mg calcium 1,200 mg PO BID 11/27/22 04/12/23 (1,500 mg) tablet (Calcium) cyclosporine 0.05 % eye drops 1 drp EACH EYE BID 11/27/22 04/12/23 (Restasis MultiDose) Allergies Allergy/AdvReac Type Severity Reaction Status Date / Time acetaminophen AdvReac Intermediate Nausea and Verified 06/25/23 14:16 Vomiting aspirin AdvReac Intermediate Gastrointestinal Verified 06/25/23 14:16 Upset hydrocodone AdvReac Intermediate Nausea and Verified 06/25/23 14:16 Vomiting Review of Systems Review of Systems: All systems as dictated in [facility] Past Medical History Medical History Bilateral low back pain with right-sided sciatica Carotid stenosis, bilateral Cerebrovascular disease, unspecified Cerumen impaction Chronic left shoulder pain Chronic right shoulder pain Diabetes mellitus type 2 with neurological manifestations Encounter for screening mammogram for malignant neoplasm of breast Essential (primary) hypertension Facial pressure Gastro-esophageal reflux disease without esophagitis Headache Hormone replacement therapy (postmenopausal) Hyperlipidemia LDL goal <70 IBS (irritable bowel syndrome) Lung nodule Nontoxic multinodular goiter Osteoporosis Polyosteoarthritis, unspecified Type 2 diabetes mellitus with hyperglycemia Surgical History Surgical History S/P placement of cardiac pacemaker placed 10/28/2020 Family History Family History Mother Hypertension Family history of diabetes mellitus in first degree relative Family history of chronic obstructive pulmonary disease Patient's mother is Diabetes mellitus Sibling Hypertension Diabetes mellitus Father Family history of malignant neoplasm Family history of coronary artery disease Social History Social History Smoking status: Never smoker Second hand tobacco smoke exposure: No Alcohol intake: never Alcohol use details: seldom rare etoh use Substance use: never Substance use type: does not use Lack of Transportation: No Lack of Food: Never True Current Housing: I Have Housing Concerned About Future Housing: No Difficulty Paying Gas/Electric Bills: No Difficulty Paying for Meds: No Currently Unemployed: No Education: Associate Degree Difficulty w/ Childcare or Family Care: No Living arrangements: with family Gender identity (if verbalized by the patient): Female Sexual Orientation (if Verbalized by the Patient): Straight or Heterosexual Spiritual care concerns: No Exam Narrative: GENERAL: Well-appearing, well-nourished, and in no acute distress. HEAD: Normocephalic, atraumatic. EYES: PERRLA a
[2023-07-16 00:49] VITALS: BP 140/60; PULSE 90; RESP 15; O2SAT 100
[2023-07-16] MEDS: traMADol HCL (*CRX) 50 MG TABLET PO (00:49)
[2023-07-16 02:16] VITALS: BP 136/58; PULSE 72; RESP 15; O2SAT 100
== END 2023-07-16 02:17 | disposition home or self-care (01) ==
PROVIDERS: Emergency Provider Physician Assistant; PCP Family Medicine
DX: R51.9 Headache, unspecified (principal); E11.49 Type 2 diabetes mellitus with other diabetic neurological complication; I67.9 Cerebrovascular disease, unspecified; I10 Essential (primary) hypertension; E78.5 Hyperlipidemia, unspecified; K21.9 Gastro-esophageal reflux disease without esophagitis; K58.9 Irritable bowel syndrome, unspecified; M81.0 Age-related osteoporosis without current pathological fracture; M19.90 Unspecified osteoarthritis, unspecified site; Z95.0 Presence of cardiac pacemaker; Z79.84 Long term (current) use of oral hypoglycemic drugs
CPT/HCPCS: 99283; A9270

== ENCOUNTER 2023-08-01 08:25 | Outpatient (CLI) | payer MEDICARE, SELFPAY ==
[2023-08-01 10:47] LABS: Alanine Aminotransferase 17 U/L (6-35); Albumin Level 4.5 g/dL (3.5-5.1); Alkaline Phosphatase 68 U/L (38-126); Anion Gap 7 mmol/L (8-16); Aspartate Amino Transferase 25 U/L (14-36); Bilirubin,Total 0.5 mg/dL (0.2-1.3); Blood Urea Nitrogen 17 mg/dL (7-17); Carbon Dioxide 28 mmol/L (22-30); Chloride 103 mmol/L (98-107); Cholesterol 193 mg/dL (0-200); Estimated Glomerular Filt Rate > 60; Glucose 127 mg/dL (65-110); HDL Direct 98 mg/dL; Potassium 4.1 mmol/L (3.4-5.0); Sodium 138 mmol/L (137-145); Triglycerides 76 mg/dL (<150)
[2023-08-01 10:58] LABS: LDL Cholesterol Direct 70 mg/dL
[2023-08-01 11:22] LABS: Free T4 Free Thyroxine 1.39 ng/mL (0.78-2.19); Hemoglobin A1C 6.7 % (<5.7)
[2023-08-01 11:31] LABS: Creatinine Urine 39.9 mg/dL
[2023-08-01 11:35] LABS: MALB Creatinine Ratio 16.3 mg/g (0-30); Microalbumin Urine Random 6.5 mg/L (0-16.7)
[2023-08-05 13:11] LABS: Triiodothyronine T3 Free 3.2 pg/mL (2.3-4.2)
== END 2023-08-01 08:26 | disposition home or self-care (01) ==
LOC: ANHLAB 08:28
PROVIDERS: PCP Family Medicine; Visit Provider Internal Medicine Endocrinology, Diabetes & Metabolism
DX: E11.9 Type 2 diabetes mellitus without complications (principal); E04.9 Nontoxic goiter, unspecified
CPT/HCPCS: 36415; 80053; 80061; 82043; 83036; 84439; 84443; 84481

== ENCOUNTER 2023-08-10 10:24 | Emergency (ER) | payer MEDICARE, SELFPAY ==
--- NOTE | ~2023-08-10 | XR_ITS ---
EXAMINATION: XR knee LT 3V DATE: 08/10/2023 12:34 INDICATION: Left knee pain TECHNIQUE: Three views of the left knee were obtained. COMPARISON: None. FINDINGS: Alignment is normal. No fracture or osteochondral lesion. There is mild tricompartmental os teoarthritis characterized by tiny marginal osteophytes. The bones are osteopenic. No joint effusion/ synovitis. Soft tissues are unremarkable. IMPRESSION: 1. No acute osseous abnormality. Reviewed, dictated and finalized at location B.
--- NOTE | ~2023-08-10 | XR_ITS ---
EXAMINATION: XR hip BI 2V w AP pelvis DATE: 08/10/2023 12:34 INDICATION: Bilateral hip pain TECHNIQUE: AP view the pelvis and two views of each hip were obtained. COMPARISON: 03/26/2023 FINDINGS: Bone alignment is normal. There is no fracture. There is mild osteoarthritis of the hips. T here is at least moderate spondylosis of the visualized lower lumbar spine. IMPRESSION: 1. No acute osseous abnormality. Reviewed, dictated and finalized at location B.
--- NOTE | ~2023-08-10 | CT_ITS ---
EXAMINATION: CT lumbar spine wo con DATE: 08/10/2023 12:21 INDICATION: Back pain TECHNIQUE: Computed tomography (CT) of the lumbar spine was performed without intravenous contrast. A utomated exposure control and iterative reconstruction technique were employed. The dose-length produ ct was 343.65 mGy-cm. COMPARISON: None FINDINGS: Mild S-shaped curvature of the lumbar and lower thoracic spine with 15 degree lumbar levocurvature an d 12 degree dextrocurvature of the thoracolumbar junction. 2 mm retrolisthesis L2 on L3. Vertebral gio dy heights are normal. Severe disc height loss at L2-L3, severe left-sided disc height loss at L1-L2 and right-sided disc height loss at L3-L4. Moderate disc height loss at T11-T12 and T12-L1. Mild disc height loss at L4-L5. A cardiac pacemaker lead loops caudally into the intrahepatic portion of the i nferior vena cava. Paravertebral soft tissues are unremarkable. The following disc levels are specifi flower discussed: T11-T12: The disc does not extend beyond the endplate margin. There is mild left and moderate right f acet joint osteoarthritis. There is no neural foraminal stenosis. There is no central canal stenosis. T12-L1: Disc is mildly bulging. There is altered left and moderate right facet joint osteoarthritis. There is no neural foraminal stenosis. There is minimal central canal stenosis. L1-L2: Disc is bulging. There is mild left and mild to moderate right facet joint osteoarthritis. The re is mild left and mild to moderate right neural foraminal stenosis. There is mild central canal dominic nosis. L2-L3: Disc is bulging. There is hypertrophy of the ligamentum flavum. There is mild left and moderat e to severe right facet joint osteoarthritis. There is mild left and moderate right neural foraminal stenosis. There is moderate central canal stenosis. L3-L4: Disc is bulging. There is mild hypertrophy of the ligamentum flavum. There is moderate to montrell re bilateral facet joint osteoarthritis. There is mild left and moderate right neural foraminal steno sis. There is mild central canal stenosis. L4-L5: Disc is bulging. There is mild hypertrophy of the ligamentum flavum. There is moderate to montrell re bilateral facet joint osteoarthritis. There is mild right and mild to moderate left neural foramin al stenosis. There is mild central canal stenosis. L5-S1: Disc is mildly bulging. There is moderate to severe left and severe right facet joint osteoart hritis. There is mild bilateral, left greater than right neural foraminal stenosis. There is minimal central canal stenosis. IMPRESSION: 1. Moderate S-shaped curvature of the lumbar and lower thoracic spine with severe spondylosis. Reviewed, dictated and finalized at location A. IMPRESSION: 1. Moderate S-shaped curvature of the lumbar and lower thoracic spine with montrell re spondylosis.
[2023-08-10 11:02] VITALS: BP 151/62; PULSE 72; RESP 14; TEMP 36.9; O2SAT 100
[2023-08-10] MEDS: CYCLOBENZAPRINE HCL 10 MG TABLET PO (12:02)
--- NOTE | 2023-08-10 12:07 | ED.GENADULT ---
HPI - General Adult General Chief complaint: Fall Stated complaint: multiple falls over the past two months Time Seen by Provider: 08/10/23 11:17 History of Present Illness HPI narrative: Linh Mc is a 77 y/o female who presents with reported hx of Polio which she adds has not limited her physical ability most of her life she has been very active and a runner. However she states as of the last year or so she has felt increased weakness to the left side of her body which is the side that was affected by the polio and is smaller in size then her right and always has been. She states she has had a few falls over the past few months most recently fell 3 days ago. She describes this fall as a mechanical ground level fall and fell on to her left hip. Denies hitting her head and denies LOC Comes in today with complaints of continued pain to her left hip down her left leg and some pain to her lower back. Denies any numbness/tingling/ no loss of bowel or bladder. Related Data Home Medications Medication Instructions Recorded Confirmed calcium carbonate 600 mg calcium 1,200 mg PO BID 11/27/22 04/12/23 (1,500 mg) tablet (Calcium) cyclosporine 0.05 % eye drops 1 drp EACH EYE BID 11/27/22 04/12/23 (Restasis MultiDose) Allergies Allergy/AdvReac Type Severity Reaction Status Date / Time acetaminophen AdvReac Intermediate Nausea and Verified 08/10/23 10:25 Vomiting aspirin AdvReac Intermediate Gastrointestinal Verified 08/10/23 10:25 Upset hydrocodone AdvReac Intermediate Nausea and Verified 08/10/23 10:25 Vomiting Review of Systems Review of Systems: CONSTITUTIONAL: Denies fever, chills, or sweats. EYES: Denies visual changes, redness, or discharge. ENT: Denies rhinorrhea, congestion, sore throat, or otalgia. CARDIOVASCULAR: Denies chest pain, palpitations, or edema. RESPIRATORY: Denies cough or dyspnea. GASTROINTESTINAL: Denies abdominal pain, nausea, vomiting, or diarrhea. GENITOURINARY: Denies dysuria or hematuria. SKIN: Denies rash or itching. MUSCULOSKELETAL:Reports lower back pain / left hip pain/ left knee pain that has continued since her fall 3 days ago. NEUROLOGIC: Denies headache, numbness, dizziness, or weakness. PSYCHIATRIC: Denies anxiety or depression. [facility] Past Medical History Medical History Bilateral low back pain with right-sided sciatica Carotid stenosis, bilateral Cerebrovascular disease, unspecified Cerumen impaction Chronic left shoulder pain Chronic right shoulder pain Diabetes mellitus type 2 with neurological manifestations Encounter for screening mammogram for malignant neoplasm of breast Essential (primary) hypertension Facial pressure Gastro-esophageal reflux disease without esophagitis Headache Hormone replacement therapy (postmenopausal) Hyperlipidemia LDL goal <70 IBS (irritable bowel syndrome) Lung nodule Nontoxic multinodular goiter Osteoporosis Polyosteoarthritis, unspecified Type 2 diabetes mellitus with hyperglycemia Surgical History Surgical History S/P placement of cardiac pacemaker placed 10/28/2020 Family History Family History Mother Hypertension Family history of diabetes mellitus in first degree relative Family history of chronic obstructive pulmonary disease Patient's mother is Diabetes mellitus Sibling Hypertension Diabetes mellitus Father Family history of malignant neoplasm Family history of coronary artery disease Social History Social History Smoking status: Never smoker Second hand tobacco smoke exposure: No Alcohol intake: never Alcohol use details: seldom rare etoh use Substance use: never Substance use type: does not use Lack of Transportation: No Lack of Food: Never True Current Housing: I Have
[2023-08-10 14:16] VITALS: BP 149/65; PULSE 66; RESP 14; O2SAT 100
== END 2023-08-10 14:19 | disposition home or self-care (01) ==
PROVIDERS: Emergency Provider Nurse Practitioner Family; PCP Family Medicine
DX: M54.42 Lumbago with sciatica, left side (principal); M16.0 Bilateral primary osteoarthritis of hip; M17.12 Unilateral primary osteoarthritis, left knee; M47.816 Spondylosis without myelopathy or radiculopathy, lumbar region; M47.814 Spondylosis without myelopathy or radiculopathy, thoracic region; I65.23 Occlusion and stenosis of bilateral carotid arteries; E11.49 Type 2 diabetes mellitus with other diabetic neurological complication; E78.5 Hyperlipidemia, unspecified; K21.9 Gastro-esophageal reflux disease without esophagitis; K58.9 Irritable bowel syndrome, unspecified; M81.0 Age-related osteoporosis without current pathological fracture; Z95.0 Presence of cardiac pacemaker; Z86.12 Personal history of poliomyelitis; Z86.73 Personal history of transient ischemic attack (TIA), and cerebral infarction without residual deficits; Z79.84 Long term (current) use of oral hypoglycemic drugs
CPT/HCPCS: 72131; 73521; 73562; 99284; A9270

== ENCOUNTER 2023-10-04 11:50 | Emergency (ER) | payer MEDICARE, SELFPAY ==
[2023-10-04] VITALS (36 sets, daily range): BP systolic 144–191; BP diastolic 61–111; PULSE 60–75; RESP 12–19; O2SAT 96–100
--- NOTE | ~2023-10-04 | CT_ITS ---
EXAMINATION: CT abdomen pelvis w con DATE: 10/04/2023 13:28 INDICATION: Abdominal pain, nausea. TECHNIQUE: Computed tomography (CT) of the abdomen and pelvis was performed with 100 CC Omnipaque 350 intravenous contrast. Automated exposure control and iterative reconstruction technique were employe d. Exam dose: 251.65 mGy-cm total exam DLP. COMPARISON: 06/12/2023 CT abdomen pelvis FINDINGS: There is suggestion of some right lower lobe infiltrate on the uppermost image. The include d lung bases otherwise appear unremarkable. Cardiomegaly. Right atrial and right ventricular pacemaker leads. No pericardial or pleural effusion. Small sliding hiatal hernia. Status post cholecystectomy. No hepatic, splenic, pancreatic, and adrenal or renal space-occupying ma ss lesion is detected. Probable pararenal cysts. Focal scarring of the upper pole of the right kidney . No urinary tract calculus or hydroureteronephrosis. The urinary bladder is unremarkable. Status post hysterectomy. There is atherosclerotic calcification of the abdominal aorta and at the origins of the celiac, super ior mesenteric and particularly probably at both renal artery origins. No abdominal aortic aneurysm. No intraperitoneal or retroperitoneal or pelvic mass lesion or adenopathy or ascites is detected. There is some fluid within the ileum with occasional ileal air-fluid levels which may represent enter itis or mild adynamic ileus. Mild left colonic diverticulosis; no CT evidence of diverticulitis. No bowel obstruction, bowel wall thickening, pneumatosis or intraperitoneal free air is detected. There is a fairly prominent amount o f fecal material in the colon. No suspicious osteolytic or osteoblastic lesions are noted. Diffuse idiopathic skeletal hyperostosis of the thoracic spine. Multilevel lumbar degenerative disc d isease, previous severe at L1-2, L2-3 and L3-4 with mild retrolisthesis at each of these levels. Prom inent degenerative spurring of the lumbar and lumbosacral apophyseal joints. Bilateral moderate hip osteoarthritis. No suspicious osteolytic or osteoblastic lesions are noted. IMPRESSION: Nondilated ileum with air-fluid levels which may be due to enteritis or mild adynamic il eus; no bowel obstruction or free air Mild left colonic diverticulosis; no CT evidence of diverticulitis Status post hysterectomy Small sliding hiatal hernia Status post cholecystectomy Status post hysterectomy Focal upper pole right renal scarring Cardiomegaly Possible right lower lobe infiltrate Reviewed, dictated and finalized at [facility]. Reviewed, dictated and finalized at location [facility]. R MANAGER IMPRESSION: Nondilated ileum with air-fluid levels which may be due to enterit is or mild adynamic ileus; no bowel obstruction or free air Mild left colonic diverticulosis; no CT evidence of diverticulitis Status post hysterectomy Small sliding hiatal hernia Status post cholecystectomy Status post hysterectomy Focal upper pole right renal scarring Cardiomegaly Possible right lower lobe infiltrate
--- NOTE | ~2023-10-04 | XR_ITS ---
EXAMINATION: XR chest 2V DATE: 10/04/2023 13:34 INDICATION: Chest pain. TECHNIQUE: Frontal and lateral views of the chest were obtained. COMPARISON: Chest 2 views 06/12/2023 FINDINGS: There is no pneumonia, pleural effusion, or pneumothorax. The heart size is normal. There i s a left chest wall pacer with leads in the right atrium and right ventricle. There is a total right shoulder arthroplasty. Surgical clips in the right upper quadrant are likely from cholecystectomy. IMPRESSION: 1. No acute cardiopulmonary disease. Reviewed, dictated and finalized at location A. PATROL OFFICER
[2023-10-04 12:33] LABS: Basophils Absolute Auto 0.1 K/mm3 (0.0-0.1); Basophils Percent Auto 0.4 % (0.2-1.2); Eosinophils Absolute Auto 0.1 K/mm3 (0-0.3); Eosinophils Percent Auto 0.6 % (0-4.4); Hematocrit 39.4 % (37.0-47.0); Hemoglobin 12.3 g/dL (12.0-15.0); Immature Granulocyte Absolute 0.03 K/mm3 (0.00-0.031); Immature Granulocyte Percent A 0.2 % (0-0.5); Lymphocytes Absolute Auto 1.72 K/mm3 (0.9-3.2); Lymphocytes Percent Auto 14.2 % (18.3-44.2); Mean Corpuscular HGB Conc 31.2 g/dl (32-36); Mean Corpuscular Hemoglobin 28.1 pg (26-34); Mean Corpuscular Volume 90.2 fl (80-100); Mean Platelet Volume 10.3 fl (7.4-10.4); Monocytes Absolute Auto 0.4 K/mm3 (0.1-0.6); Monocytes Percent Auto 3.3 % (2.6-8.5); Neutrophils Absolute Auto 9.8 K/mm3 (1.3-6.7); Neutrophils Percent Auto 81.3 % (45.5-73.1); Platelet Count Result 229 k/mm3 (150-375); Red Blood Count 4.37 M/mm3 (4.2-5.4); White Blood Count 12.1 K/mm3 (4.5-10.0)
--- NOTE | 2023-10-04 12:36 | ED.GENADULT ---
HPI - General Adult General Chief complaint: Nausea/Vomiting/Diarrhea Stated complaint: abd pain/vomiting x months Time Seen by Provider: 10/04/23 12:35 History of Present Illness HPI narrative: Patient is an 78-year-old female with history of anxiety, hypertension here with multiple symptoms including nausea, vomiting, dizziness. She states that she has had intermittent episodes similar to this over the last 6 months and has been following with her primary care doctor regarding them. She notes that the current episode began this morning when she was getting up from sleep. She noted that she felt significant nausea and lightheadedness, feeling as though she may pass out. She proceeded to go into the kitchen and notify her . On the drive here to the hospital she notes she vomited several times in the car. She currently continues to feel nausea as well as lightheadedness. Of note she does complain of some intermittent chest pains which have been present for the last 5 months. She does not believe that the nausea and the chest pains occur at the same time intervals. No cough or congestion. No recent falls. Related Data Home Medications Medication Instructions Recorded Confirmed calcium carbonate 600 mg calcium 1,200 mg PO BID 11/27/22 04/12/23 (1,500 mg) tablet (Calcium) cyclosporine 0.05 % eye drops 1 drp EACH EYE BID 11/27/22 04/12/23 (Restasis MultiDose) Allergies Allergy/AdvReac Type Severity Reaction Status Date / Time acetaminophen AdvReac Intermediate Nausea and Verified 09/19/23 13:22 Vomiting aspirin AdvReac Intermediate Gastrointestinal Verified 09/19/23 13:22 Upset hydrocodone AdvReac Intermediate Nausea and Verified 09/19/23 13:22 Vomiting Review of Systems Review of Systems: All systems reviewed & are unremarkable except as noted in HPI and below PMFSH Past Medical History Medical History Bilateral low back pain with right-sided sciatica Carotid stenosis, bilateral Cerebrovascular disease, unspecified Cerumen impaction Chronic left shoulder pain Chronic right shoulder pain Diabetes mellitus type 2 with neurological manifestations Encounter for screening mammogram for malignant neoplasm of breast Essential (primary) hypertension Facial pressure Gastro-esophageal reflux disease without esophagitis Headache Hormone replacement therapy (postmenopausal) Hyperlipidemia LDL goal <70 IBS (irritable bowel syndrome) Lung nodule Nontoxic multinodular goiter Osteoporosis Polyosteoarthritis, unspecified Type 2 diabetes mellitus with hyperglycemia Surgical History Surgical History S/P placement of cardiac pacemaker placed 10/28/2020 Family History Family History Mother Hypertension Family history of diabetes mellitus in first degree relative Family history of chronic obstructive pulmonary disease Patient's mother is Diabetes mellitus Sibling Hypertension Diabetes mellitus Father Family history of malignant neoplasm Family history of coronary artery disease Social History Social History Smoking status: Never smoker Second hand tobacco smoke exposure: No Alcohol intake: never Alcohol use details: seldom rare etoh use Substance use: never Substance use type: does not use Lack of Transportation: No Lack of Food: Never True Current Housing: I Have Housing Concerned About Future Housing: No Difficulty Paying Gas/Electric Bills: No Difficulty Paying for Meds: No Currently Unemployed: No Education: Associate Degree Difficulty w/ Childcare or Family Care: No Living arrangements: with family Gender identity (if verbalized by the patient): Female Sexual Orientation (if Verbalized by the Patient): Straight or Heterosexual
[2023-10-04 12:39] LABS: Glucose Point of Care 177 mg/dl (65-105)
[2023-10-04 12:44] LABS: Alanine Aminotransferase 16 U/L (6-35); Albumin Level 4.5 g/dL (3.5-5.1); Alkaline Phosphatase 77 U/L (38-126); Anion Gap 10 mmol/L (8-16); Aspartate Amino Transferase 24 U/L (14-36); Bilirubin,Total 0.7 mg/dL (0.2-1.3); Blood Urea Nitrogen 15 mg/dL (7-17); Calcium 10.2 mg/dL (8.4-10.2); Carbon Dioxide 25 mmol/L (22-30); Chloride 102 mmol/L (98-107); Estimated Glomerular Filt Rate > 60; Glucose 180 mg/dL (65-110); Lipase 51 U/L (23-300); Potassium 4.2 mmol/L (3.4-5.0); Sodium 137 mmol/L (137-145)
--- NOTE | 2023-10-04 13:00 | ECG_ITS ---
Measurements Intervals [place] Rate: 63 P: 41 NE: 228 QRS: -75 QRSD: 162 T: 81 QT: 438 QTc: 450 Interpretive Statements ELECTRONIC ATRIAL PACEMAKER WITH INHIBITION ELECTRONIC VENTRICULAR PACEMAKER BASELINE ARTIFACT- I, II, AVR, V5-V6 NO FURTHER INTERPRETATION IS POSSIBLE ATYPICAL ECG COMPARED TO ECG 06/24/2023 11:36:09 NO SIGNIFICANT CHANGES Electronically Signed On 10-04-2023 13:16:33 HAND FLATWORK FINISHER by Bobby Jacques D.O.
[2023-10-04] MEDS: ONDANSETRON INJ 4 MG/2 ML VIAL IV PUSH (13:06)
[2023-10-04 13:08] LABS: Add Urine Microscopic? NO; Appearance Urine Clear (Clear); Bilirubin Urine Negative (Negative); Blood Urine Negative (Negative); Color Urine Yellow (Yellow); Glucose Urine UA Negative (Negative); Ketones Urine 1+ mg/dL (Negative); Leukocyte Esterase Ur Negative LEU/UL (Negative); Nitrate Urine Negative (Negative); Protein Urine Negative (Negative); Specific Grav Ur 1.023 (1.001-1.035); Urobilinogen Urine 0.2 mg/dL (<2.0); pH Urine 5.5 (5.0-9.0)
[2023-10-04 13:27] LABS: Troponin I < 0.012 ng/mL (0.000-0.034)
[2023-10-04 16:44] LABS: Troponin I < 0.012 ng/mL (0.000-0.034)
== END 2023-10-04 18:01 | disposition home or self-care (01) ==
PROVIDERS: Physician Assistant; Emergency Provider Student in an Organized Health Care Education/Training Program; PCP Family Medicine
DX: R11.2 Nausea with vomiting, unspecified (principal); R07.89 Other chest pain; I10 Essential (primary) hypertension; I65.23 Occlusion and stenosis of bilateral carotid arteries; E11.49 Type 2 diabetes mellitus with other diabetic neurological complication; E78.5 Hyperlipidemia, unspecified; K21.9 Gastro-esophageal reflux disease without esophagitis; K58.9 Irritable bowel syndrome, unspecified; M81.0 Age-related osteoporosis without current pathological fracture; M19.90 Unspecified osteoarthritis, unspecified site; Z95.0 Presence of cardiac pacemaker; Z90.710 Acquired absence of both cervix and uterus; Z90.49 Acquired absence of other specified parts of digestive tract; K57.90 Diverticulosis of intestine, part unspecified, without perforation or abscess without bleeding; I51.7 Cardiomegaly; Z79.84 Long term (current) use of oral hypoglycemic drugs
CPT/HCPCS: 36415; 71046; 74177; 80053; 81003; 82948; 83690; 84484; 85025; 93005; 96374; 99284; J2405; Q9967

== ENCOUNTER 2023-10-10 11:15 | Emergency (ER) | payer MEDICARE, SELFPAY ==
[2023-10-10] VITALS (23 sets, daily range): BP systolic 169–189; BP diastolic 52–78; PULSE 60–75; RESP 12–20; TEMP 36.7; O2SAT 97–100
--- NOTE | 2023-10-10 12:24 | ED.GENADULT ---
HPI - General Adult General Chief complaint: Nausea/Vomiting/Diarrhea Stated complaint: Emesis Time Seen by Provider: 10/10/23 12:23 Source: patient, family and RN notes reviewed Limitations: no limitations History of Present Illness HPI narrative: 78 years old white female came from home with her by private car complaining of intermittent nausea and vomiting and abdominal pain Patient was seen in our emergency room for similar symptoms few days ago with a negative workup including CT scan of the abdomen and pelvis. History of diabetes, hypertension, pacemaker, and anxiety/depression. Patient denies any aggravation or exacerbation of her stress level lately. Currently her main complaint is general weakness. She denies any fever, chills, nausea, vomiting, abdominal pain, chest pain, shortness of breath or back pain. Related Data Home Medications Medication Instructions Recorded Confirmed calcium carbonate 600 mg calcium 1,200 mg PO BID 11/27/22 04/12/23 (1,500 mg) tablet (Calcium) cyclosporine 0.05 % eye drops 1 drp EACH EYE BID 11/27/22 04/12/23 (Restasis MultiDose) Allergies Allergy/AdvReac Type Severity Reaction Status Date / Time acetaminophen AdvReac Intermediate Nausea and Verified 10/10/23 11:30 Vomiting aspirin AdvReac Intermediate Gastrointestinal Verified 10/10/23 11:30 Upset hydrocodone AdvReac Intermediate Nausea and Verified 10/10/23 11:30 Vomiting Review of Systems Review of Systems: All systems reviewed & are unremarkable except as noted in HPI and below PMFSH Past Medical History Medical History Bilateral low back pain with right-sided sciatica Carotid stenosis, bilateral Cerebrovascular disease, unspecified Cerumen impaction Chronic left shoulder pain Chronic right shoulder pain Diabetes mellitus type 2 with neurological manifestations Encounter for screening mammogram for malignant neoplasm of breast Essential (primary) hypertension Facial pressure Gastro-esophageal reflux disease without esophagitis Headache Hormone replacement therapy (postmenopausal) Hyperlipidemia LDL goal <70 IBS (irritable bowel syndrome) Lung nodule Nontoxic multinodular goiter Osteoporosis Polyosteoarthritis, unspecified Type 2 diabetes mellitus with hyperglycemia Surgical History Surgical History S/P placement of cardiac pacemaker placed 10/28/2020 Family History Family History Mother Hypertension Family history of diabetes mellitus in first degree relative Family history of chronic obstructive pulmonary disease Patient's mother is Diabetes mellitus Sibling Hypertension Diabetes mellitus Father Family history of malignant neoplasm Family history of coronary artery disease Social History Social History Smoking status: Never smoker Second hand tobacco smoke exposure: No Alcohol intake: never Alcohol use details: seldom rare etoh use Substance use: never Substance use type: does not use Lack of Transportation: No Lack of Food: Never True Current Housing: I Have Housing Concerned About Future Housing: No Difficulty Paying Gas/Electric Bills: No Difficulty Paying for Meds: No Currently Unemployed: No Education: Associate Degree Difficulty w/ Childcare or Family Care: No Living arrangements: with family Gender identity (if verbalized by the patient): Female Sexual Orientation (if Verbalized by the Patient): Straight or Heterosexual Spiritual care concerns: No Exam Narrative: General appearance: Well-developed, well-nourished, looks tired and sleepy and weak, does not look in pain or distress Skin: Normal color Head: Normocephalic, nontraumatic Eyes: Clear conjunctiva ENT: Oropharynx normal, ears normal, nose twila
[2023-10-10] MEDS: SODIUM CHLORIDE 0.9% IV 1,000 ML 999 ML IV CONT (12:44)
[2023-10-10] MEDS: ONDANSETRON INJ 4 MG/2 ML VIAL IV PUSH (12:44)
[2023-10-10 12:52] LABS: Basophils Percent Auto 0.3 % (0.2-1.2); Eosinophils Absolute Auto 0.1 K/mm3 (0-0.3); Eosinophils Percent Auto 0.5 % (0-4.4); Hematocrit 37.4 % (37.0-47.0); Hemoglobin 11.5 g/dL (12.0-15.0); Immature Granulocyte Absolute 0.03 K/mm3 (0.00-0.031); Immature Granulocyte Percent A 0.3 % (0-0.5); Mean Corpuscular HGB Conc 30.7 g/dl (32-36); Mean Platelet Volume 10.9 fl (7.4-10.4); Monocytes Absolute Auto 0.5 K/mm3 (0.1-0.6); Monocytes Percent Auto 5.4 % (2.6-8.5); Neutrophils Absolute Auto 7.4 K/mm3 (1.3-6.7); Neutrophils Percent Auto 79.5 % (45.5-73.1); Platelet Count Result 231 k/mm3 (150-375); Red Blood Count 4.11 M/mm3 (4.2-5.4); Red Cell Distribution Width 15.1 % (11.5-14.5); White Blood Count 9.3 K/mm3 (4.5-10.0)
[2023-10-10 13:04] LABS: Alanine Aminotransferase 16 U/L (6-35); Albumin Level 4.2 g/dL (3.5-5.1); Alkaline Phosphatase 70 U/L (38-126); Anion Gap 10 mmol/L (8-16); Aspartate Amino Transferase 25 U/L (14-36); Bilirubin,Total 0.7 mg/dL (0.2-1.3); Blood Urea Nitrogen 18 mg/dL (7-17); Calcium 9.7 mg/dL (8.4-10.2); Carbon Dioxide 23 mmol/L (22-30); Chloride 103 mmol/L (98-107); Estimated Glomerular Filt Rate > 60; Glucose 173 mg/dL (65-110); Lipase 42 U/L (23-300); Potassium 4.2 mmol/L (3.4-5.0); Sodium 136 mmol/L (137-145)
--- NOTE | 2023-10-10 15:40 | PC.NURSE ---
Patient ambulated to the restroom and was unable to urinate into the specimen cup provided. Provider made aware.
[2023-10-10 16:23] LABS: Appearance Urine Clear (Clear); Bilirubin Urine Negative (Negative); Blood Urine Negative (Negative); Color Urine Yellow (Yellow); Glucose Urine UA Negative (Negative); Ketones Urine Trace mg/dL (Negative); Leukocyte Esterase Ur Negative LEU/UL (Negative); Nitrate Urine Negative (Negative); Protein Urine Negative (Negative); Specific Grav Ur 1.009 (1.001-1.035); Urobilinogen Urine 0.2 mg/dL (<2.0)
[2023-10-10 16:34] LABS: Add Urine Microscopic? NO
== END 2023-10-10 17:25 | disposition home or self-care (01) ==
PROVIDERS: Emergency Provider Emergency Medicine; PCP Family Medicine
DX: R11.0 Nausea (principal); R53.1 Weakness; I10 Essential (primary) hypertension; I65.23 Occlusion and stenosis of bilateral carotid arteries; E11.49 Type 2 diabetes mellitus with other diabetic neurological complication; E78.5 Hyperlipidemia, unspecified; K21.9 Gastro-esophageal reflux disease without esophagitis; K58.9 Irritable bowel syndrome, unspecified; M81.0 Age-related osteoporosis without current pathological fracture; M19.90 Unspecified osteoarthritis, unspecified site; Z95.0 Presence of cardiac pacemaker; Z79.84 Long term (current) use of oral hypoglycemic drugs
CPT/HCPCS: 36415; 80053; 81003; 83690; 85025; 96361; 96374; 99284; J2405; J7030

== ENCOUNTER 2023-10-29 05:25 | Emergency (ER) | payer MEDICARE, SELFPAY ==
--- NOTE | ~2023-10-29 | CT_ITS ---
EXAMINATION: CT abdomen pelvis w con INDICATION: Epigastric abdominal pain TECHNIQUE: Computed tomographic images of the abdomen and pelvis were obtained after the administrati on of 100 cc of Omnipaque 350 intravenous contrast. The dose-length product (DLP) was 258.13 mGy-cm. Automated exposure control and iterative reconstruction technique were employed. COMPARISON: 10/04/2023 FINDINGS: The lung bases are clear. The heart size is normal. There is a small sliding hiatal hernia. The gallbladder is surgically absent. There is mild enlargement of the common bile duct and central intrahepatic ducts which is likely due to post cholecystectomy state. One of the pacemaker wires loop s into the intrahepatic portion of the inferior vena cava but ends in the heart. The liver, spleen, p ancreas, and adrenal glands are normal. There are peripelvic cysts of the otherwise normal left kidne y. The right kidney is unremarkable. No pathologically enlarged abdominal or pelvic lymph nodes are i dentified. No free intraperitoneal gas or evidence of bowel obstruction. The appendix is normal. Ther e is severe lumbar spondylosis. IMPRESSION: 1. Small sliding hiatal hernia. Reviewed, dictated and finalized at location B. ET ASSEMBLER
[2023-10-29 05:35] VITALS: BP 188/61; PULSE 77; RESP 18; TEMP 36.8; O2SAT 100
[2023-10-29] MEDS: BELLADONNA ALK/PHENOB ELIX 10 ML, MAG HYDROX/ALUMINUM HYD/SIMETH 30 ML, LIDOCAINE HCL 2... PO (06:14)
[2023-10-29] MEDS: ONDANSETRON HCL ODT 4 MG TABLET PO (06:15)
--- NOTE | 2023-10-29 06:17 | ED.ABDPAIN ---
HPI - Abdominal Pain General Chief Complaint: Abdominal Pain <Serge Griffin MD - Last Filed: 10/29/23 07:24> Stated Complaint: multiple complaints <Serge Griffin MD - Last Filed: 10/29/23 07:24> Time Seen by Provider: 10/29/23 05:40 <Serge Griffin MD - Last Filed: 10/29/23 07:24> History of Present Illness HPI narrative: This is an 78-year-old female, with history of hypertension and diabetes with multiple previous episodes of abdominal pain, seen in this emergency department, who presents complaining of epigastric abdominal pain this morning. The patient described pain as sharp, rated 5/10 and and associated with eating. This morning she ate a waffle and felt pain. She complains of some nausea but denies vomiting or bleeding from any source. <Serge Griffin MD - Last Filed: 10/29/23 07:24> Related Data Home Medications: Home Medications Medication Instructions Recorded Confirmed calcium carbonate 600 mg calcium 1,200 mg PO BID 11/27/22 04/12/23 (1,500 mg) tablet (Calcium) cyclosporine 0.05 % eye drops 1 drp EACH EYE BID 11/27/22 04/12/23 (Restasis MultiDose) <Serge Griffin MD - Last Filed: 10/29/23 07:24> Allergies/Adverse Reactions: Allergies Allergy/AdvReac Type Severity Reaction Status Date / Time acetaminophen AdvReac Intermediate Nausea and Verified 10/10/23 11:30 Vomiting aspirin AdvReac Intermediate Gastrointestinal Verified 10/10/23 11:30 Upset hydrocodone AdvReac Intermediate Nausea and Verified 10/10/23 11:30 Vomiting <Serge Griffin MD - Last Filed: 10/29/23 07:24> Review of Systems Review of Systems: CONSTITUTIONAL: Denies fever, chills, or sweats. CARDIOVASCULAR: Denies chest pain, palpitations, or edema. RESPIRATORY: Denies cough or dyspnea. GASTROINTESTINAL: epigastric abdominal pain, nausea Denies vomiting, or diarrhea. GENITOURINARY: Denies dysuria or hematuria. SKIN: Denies rash or itching. MUSCULOSKELETAL: Denies back pain, joint pain, or myalgia. NEUROLOGIC: Denies headache, numbness, dizziness, or weakness. PSYCHIATRIC: Denies anxiety or depression. <Serge Griffin MD - Last Filed: 10/29/23 07:24> [facility] Past Medical History Medical History: Medical History Bilateral low back pain with right-sided sciatica Carotid stenosis, bilateral Cerebrovascular disease, unspecified Cerumen impaction Chronic left shoulder pain Chronic right shoulder pain Diabetes mellitus type 2 with neurological manifestations Encounter for screening mammogram for malignant neoplasm of breast Essential (primary) hypertension Facial pressure Gastro-esophageal reflux disease without esophagitis Headache Hormone replacement therapy (postmenopausal) Hyperlipidemia LDL goal <70 IBS (irritable bowel syndrome) Lung nodule Nontoxic multinodular goiter Osteoporosis Polyosteoarthritis, unspecified Type 2 diabetes mellitus with hyperglycemia <Serge Griffin MD - Last Filed: 10/29/23 07:24> Surgical History Surgical History: Surgical History S/P placement of cardiac pacemaker placed 10/28/2020 <Serge Griffin MD - Last Filed: 10/29/23 07:24> Family History Family History: Family History Mother Hypertension Family history of diabetes mellitus in first degree relative Family history of chronic obstructive pulmonary disease Patient's mother is Diabetes mellitus Sibling Hypertension Diabetes mellitus Father Family history of malignant neoplasm Family history of coronary artery disease <Serge Griffin MD - Last Filed: 10/29/23 07:24> Social History Social History: Social History Smoking status: Never smoker Second hand tobacco smoke exposu
[2023-10-29 06:33] LABS: Basophils Percent Auto 0.6 % (0.2-1.2); Eosinophils Absolute Auto 0.1 K/mm3 (0-0.3); Hematocrit 36.1 % (37.0-47.0); Hemoglobin 11.2 g/dL (12.0-15.0); Immature Granulocyte Absolute 0.02 K/mm3 (0.00-0.031); Immature Granulocyte Percent A 0.3 % (0-0.5); Lymphocytes Absolute Auto 1.91 K/mm3 (0.9-3.2); Lymphocytes Percent Auto 27.8 % (18.3-44.2); Mean Corpuscular Hemoglobin 28.3 pg (26-34); Mean Corpuscular Volume 91.2 fl (80-100); Mean Platelet Volume 10.5 fl (7.4-10.4); Monocytes Absolute Auto 0.5 K/mm3 (0.1-0.6); Monocytes Percent Auto 7.4 % (2.6-8.5); Neutrophils Absolute Auto 4.3 K/mm3 (1.3-6.7); Neutrophils Percent Auto 61.9 % (45.5-73.1); Platelet Count Result 236 k/mm3 (150-375); Red Blood Count 3.96 M/mm3 (4.2-5.4); Red Cell Distribution Width 14.6 % (11.5-14.5); White Blood Count 6.9 K/mm3 (4.5-10.0)
[2023-10-29 06:42] LABS: Lactic Acid Reflex 1.5 mmol/L (0.7-2.0)
[2023-10-29 06:43] LABS: Alanine Aminotransferase 15 U/L (6-35); Albumin Level 3.9 g/dL (3.5-5.1); Alkaline Phosphatase 102 U/L (38-126); Anion Gap 6 mmol/L (8-16); Aspartate Amino Transferase 19 U/L (14-36); Bilirubin,Total 0.5 mg/dL (0.2-1.3); Blood Urea Nitrogen 18 mg/dL (7-17); Calcium 9.7 mg/dL (8.4-10.2); Carbon Dioxide 25 mmol/L (22-30); Chloride 105 mmol/L (98-107); Estimated CRCL calculation 40 ml/min; Estimated Glomerular Filt Rate > 60; Glucose 265 mg/dL (65-110); Lipase 94 U/L (23-300); Potassium 4.2 mmol/L (3.4-5.0); Sodium 136 mmol/L (137-145)
[2023-10-29 08:35] VITALS: BP 180/79; PULSE 65; RESP 18; O2SAT 99
[2023-10-29 09:21] LABS: Appearance Urine Clear (Clear); Bilirubin Urine Negative (Negative); Blood Urine Negative (Negative); Color Urine Yellow (Yellow); Glucose Urine UA 2+ mg/dL (Negative); Ketones Urine Negative (Negative); Leukocyte Esterase Ur Negative LEU/UL (Negative); Nitrate Urine Negative (Negative); Protein Urine Negative (Negative); Urobilinogen Urine 0.2 mg/dL (<2.0)
[2023-10-29 09:27] LABS: Add Urine Microscopic? NO; Specific Grav Ur 1.043 (1.001-1.035)
[2023-10-29 10:06] VITALS: BP 142/100; PULSE 68; RESP 18; O2SAT 100
== END 2023-10-29 10:08 | disposition home or self-care (01) ==
PROVIDERS: Preventive Medicine Aerospace Medicine; Emergency Provider Emergency Medicine; PCP Family Medicine
DX: K44.9 Diaphragmatic hernia without obstruction or gangrene (principal); E78.5 Hyperlipidemia, unspecified; E11.9 Type 2 diabetes mellitus without complications; I10 Essential (primary) hypertension; Z86.73 Personal history of transient ischemic attack (TIA), and cerebral infarction without residual deficits
CPT/HCPCS: 36415; 74177; 80053; 81003; 83605; 83690; 85025; 99284; A9270; Q9967

== ENCOUNTER 2023-11-01 21:12 | Inpatient (IN) | payer MEDICARE, SELFPAY ==
--- NOTE | ~2023-11-01 | XR_ITS ---
EXAMINATION: XR chest 1V portable INDICATION: Confusion TECHNIQUE: Portable AP chest at 1340 hours COMPARISON: 10/04/2023 FINDINGS: The lungs are free of acute opacities. No pleural effusion or pneumothorax. The cardiomedia stinal silhouette is stable. A dual-lead cardiac pacemaker of the left chest wall ends with leads in expected locations. The right ventricular pacemaker lead loops in the intrahepatic inferior vena cava and ends in the right ventricle. Changes of right total shoulder arthroplasty are noted. There are s urgical changes of the lower cervical spine. IMPRESSION: 1. No acute cardiopulmonary abnormality. Reviewed, dictated and finalized at location B. SYSTEMS ARCHITECT
--- NOTE | ~2023-11-01 | CT_ITS ---
EXAMINATION: CT brain wo con DATE: 11/03/2023 20:41 INDICATION: confusion . TECHNIQUE: Computed tomography (CT) of the head was performed without intravenous contrast. The mA wa s adjusted according to patient size. Iterative reconstruction technique was employed. The dose-lengt h product was 605.33 mGy-cm. COMPARISON: 06/24/2023. FINDINGS: No acute intracranial hemorrhage or extra-axial fluid collection. No hydrocephalus, mass, or herniation. No acute ischemic infarct. Unremarkable dural venous sinus attenuation. No acute osseous abnormality. The aerated spaces are clear. Moderate atrophy and chronic white matter change. Atherosclerotic intracranial calcification. Bilater al lens replacements. IMPRESSION: No acute intracranial process. Reviewed, dictated and finalized at location K. MEASURER
[2023-11-01 21:30] VITALS: BP 116/79; PULSE 61; RESP 18; TEMP 36.5; O2SAT 99
[2023-11-02] VITALS (10 sets, daily range): BP systolic 112–187; BP diastolic 54–74; PULSE 60–87; RESP 13–16; TEMP 36.6–36.9; O2SAT 98–100; BMI 24.6
--- NOTE | 2023-11-02 00:43 | ED.GENADULT ---
HPI - General Adult General Chief complaint: Unspecified <Lukas Kimball MD - Last Filed: 11/02/23 23:04> Stated complaint: behavioral issues, family argument <Lukas Kimball MD - Last Filed: 11/02/23 23:04> Time Seen by Provider: 11/02/23 00:47 <Lukas Kimball MD - Last Filed: 11/02/23 23:04> History of Present Illness HPI narrative: Patient is a 86-year-old female who presents emerged from with chief complaint of behavioral issues. With the family the pain abdomen argument this evening and said that she wanted to kill her the patient states that currently she feels fine and does not really have any real complaints. <Lukas Kimball MD - Last Filed: 11/02/23 23:04> Related Data Home medications: Home Medications Medication Instructions Recorded Confirmed calcium carbonate 600 mg calcium 1,200 mg PO BID 11/27/22 11/02/23 (1,500 mg) tablet (Calcium) cyclosporine 0.05 % eye drops 1 drp EACH EYE BID 11/27/22 11/02/23 (Restasis MultiDose) amlodipine 10 mg tablet 10 mg PO DAILY 11/02/23 11/02/23 losartan 100 mg tablet 100 mg PO DAILY 11/02/23 11/02/23 tramadol 50 mg tablet 50 mg PO .COMPLEX PRN Pain (Scale 11/02/23 11/02/23 Score 4-6) <Lukas Kimball MD - Last Filed: 11/02/23 23:04> Allergies/adverse reactions: Allergies Allergy/AdvReac Type Severity Reaction Status Date / Time acetaminophen AdvReac Intermediate Nausea and Verified 11/02/23 08:37 Vomiting aspirin AdvReac Intermediate Gastrointestinal Verified 11/02/23 08:37 Upset hydrocodone AdvReac Intermediate Nausea and Verified 11/02/23 08:37 Vomiting <Lukas Kimball MD - Last Filed: 11/02/23 23:04> Review of Systems Review of Systems: A 10 system review of systems was completed on the patient and is negative except for what is stated in the HPI. Nursing and ancillary documentation was reviewed. <Lukas Kimball MD - Last Filed: 11/02/23 23:04> [facility] Past Medical History Medical History: Medical History Carotid stenosis, bilateral Cerebrovascular disease, unspecified Gastroesophageal reflux disease Hyperlipidemia Hypertension Irritable bowel syndrome Lung nodule Nontoxic multinodular goiter Osteoarthritis Osteoporosis Polio Type 2 diabetes mellitus <Lukas Kimball MD - Last Filed: 11/02/23 23:04> Surgical History Surgical History: Surgical History History of permanent cardiac pacemaker placement (10/2020) <Lukas Kimball MD - Last Filed: 11/02/23 23:04> Family History Family History: Family History Mother Hypertension Family history of diabetes mellitus in first degree relative Family history of chronic obstructive pulmonary disease Patient's mother is Diabetes mellitus Sibling Hypertension Diabetes mellitus Father Family history of malignant neoplasm Family history of coronary artery disease <Lukas Kimball MD - Last Filed: 11/02/23 23:04> Social History Social History: Social History (Updated 11/02/23 @ 18:[address] PA-C) Smoking status: Never smoker Second hand tobacco smoke exposure: No Alcohol intake: never Substance use: never Substance use type: does not use Lack of Transportation: No Lack of Food: Never True Current Housing: I Have Housing Concerned About Future Housing: No Difficulty Paying Gas/Electric Bills: No Difficulty Paying for Meds: No Currently Unemployed: No Education: Associate Degree Difficulty w/ Childcare or Family Care: No Living arrangements: with family Spiritual care concerns: No <Lukas Kimball MD - Last Filed: 11/02/23 23:04> Exam Narrative: GENERAL: Well-appe
[2023-11-02 01:01] LABS: Basophils Percent Auto 0.3 % (0.2-1.2); Eosinophils Absolute Auto 0.1 K/mm3 (0-0.3); Eosinophils Percent Auto 0.9 % (0-4.4); Hemoglobin 12.3 g/dL (12.0-15.0); Immature Granulocyte Absolute 0.02 K/mm3 (0.00-0.031); Immature Granulocyte Percent A 0.2 % (0-0.5); Lymphocytes Absolute Auto 2.25 K/mm3 (0.9-3.2); Lymphocytes Percent Auto 24.2 % (18.3-44.2); Mean Corpuscular HGB Conc 31.5 g/dl (32-36); Mean Corpuscular Hemoglobin 28.5 pg (26-34); Mean Corpuscular Volume 90.3 fl (80-100); Mean Platelet Volume 10.4 fl (7.4-10.4); Monocytes Absolute Auto 0.9 K/mm3 (0.1-0.6); Monocytes Percent Auto 9.1 % (2.6-8.5); Neutrophils Absolute Auto 6.1 K/mm3 (1.3-6.7); Neutrophils Percent Auto 65.3 % (45.5-73.1); Platelet Count Result 239 k/mm3 (150-375); Red Blood Count 4.32 M/mm3 (4.2-5.4); Red Cell Distribution Width 15.1 % (11.5-14.5); White Blood Count 9.3 K/mm3 (4.5-10.0)
[2023-11-02 02:43] LABS: Salicylate < 1.0 mg/dL (2-20)
[2023-11-02 02:43] LABS: Alanine Aminotransferase 20 U/L (6-35); Albumin Level 4.5 g/dL (3.5-5.1); Alkaline Phosphatase 89 U/L (38-126); Anion Gap 8 mmol/L (8-16); Aspartate Amino Transferase 33 U/L (14-36); Bilirubin,Total 0.8 mg/dL (0.2-1.3); Blood Urea Nitrogen 14 mg/dL (7-17); Calcium 10.4 mg/dL (8.4-10.2); Carbon Dioxide 28 mmol/L (22-30); Chloride 104 mmol/L (98-107); Estimated Glomerular Filt Rate > 60; Ethanol < 10 mg/dL (<10); Glucose 260 mg/dL (65-110); Potassium 3.9 mmol/L (3.4-5.0); Sodium 140 mmol/L (137-145)
[2023-11-02 02:44] LABS: Acetaminophen < 10 ug/mL (10-30)
[2023-11-02 03:06] LABS: Amphetamine Screen Urine Negative (Negative); Barbiturate Screen Urine Positive (Negative); Benzodiazepines Screen Urine Negative (Negative); Cannabinoid Screen Urine Negative (Negative); Cocaine Screen Urine Negative (Negative); Methadone Screen Urine Negative (Negative); Opiate Screen Urine Negative (Negative); Phencyclidine Screen Urine Negative (Negative)
[2023-11-02 03:29] LABS: SARS-CoV-2 RNA PCR Positive (Negative)
[2023-11-02 03:32] LABS: Appearance Urine Clear (Clear); Bacteria Urine Rare /hpf; Bilirubin Urine Negative (Negative); Blood Urine Negative (Negative); Color Urine Yellow (Yellow); Glucose Urine UA 3+ mg/dL (Negative); Ketones Urine 1+ mg/dL (Negative); Leukocyte Esterase Ur Negative LEU/UL (Negative); Mucus Urine Present /lpf; Nitrate Urine Negative (Negative); Protein Urine 1+ mg/dL (Negative); RBC Urine 0-2 /hpf (0-2); Specific Grav Ur 1.029 (1.001-1.035); Squamous Epithelial Cell Urine Few /hpf (Few); Urobilinogen Urine 0.2 mg/dL (<2.0); pH Urine 5.5 (5.0-9.0)
[2023-11-02 03:36] LABS: Add Urine Microscopic? YES
--- NOTE | 2023-11-02 06:34 | PC.NURSE ---
Edita from crisis reports to this RN that they will be contacting adult protective services due to pt. reporting to Edita that she does not feel safe, and doesn't want to go home.
--- NOTE | 2023-11-02 08:19 | PC.NURSE ---
Updated pt and emergency contact, Theodore, on patient.
--- NOTE | 2023-11-02 10:21 | PC.NURSE ---
Care coordination spoke w/family. Pt has and daughter in room. Daughter is recording patient on her phone. Family asked to go back out to waiting room d/t patient Covid+
--- NOTE | 2023-11-02 13:05 | PC.NURSE ---
Henny Flannery, Php Wordpress Developer, from [facility] ([phone]) out to speak with patient. She reports she spoke with patient's as well. She was updated on patient's plan of care. Henny to follow up with floor RN caring for patient on Sunday.
--- NOTE | 2023-11-02 13:44 | ADMGEN ---
This patient, Linh Mc, was admitted to [facility] Room 307-01. Patient/family oriented to hospital policies and general routines including ID bracelet, bed and alarms, visiting hours, pain management, procedures, bathroom and other care routines, personal items, smoking policy, room service/diet, and visiting hours. Information on how to activate the Rapid Response Team has been discussed. Patient/Family are encouraged to report perceived risks to care and to ask questions if they do not understand what they are told or what they should do.
--- NOTE | 2023-11-02 15:43 | PM.IMHP ---
H&P: HPI History of Present Illness Date/Time: 11/02/23 13:00 Chief Complaint: Behavioral issues. Narrative: This is an 78-year-old female with history of polio, dementia, hypertension, type 2 diabetes mellitus, and gastroesophageal reflux disease who presented to the emergency department for evaluation of ?behavioral issues.? The patient is able to provide some history however some of the following is obtained via a review of her electronic medical records. According to EMS the patient got into an argument with her last evening and told him that she wanted to kill him so they called 911. Upon arrival to the emergency department she had no complaints. Crisis evaluated the patient the ED at that time the patient said she did not feel safe returning home. Family members also felt it was unsafe to bring her home and they would like us to find a memory care facility for her to stay permanently. Incidentally she was found to be positive for COVID and with further questioning she does mention that she has not felt well for several days with decreased appetite and nausea. She denies fever, chills, sweats, headache, vertigo, focal weakness, paresthesias, chest pain, shortness a breath, cough, vomiting, diarrhea, and dysuria. Review of Systems Review of Systems: Twelve systems reviewed and are except for as per HPI. [facility] Past Medical History Medical History Carotid stenosis, bilateral Cerebrovascular disease, unspecified Gastroesophageal reflux disease Hyperlipidemia Hypertension Irritable bowel syndrome Lung nodule Nontoxic multinodular goiter Osteoarthritis Osteoporosis Polio Type 2 diabetes mellitus Surgical History Surgical History History of permanent cardiac pacemaker placement (10/2020) Family History Family History Mother Hypertension Family history of diabetes mellitus in first degree relative Family history of chronic obstructive pulmonary disease Patient's mother is Diabetes mellitus Sibling Hypertension Diabetes mellitus Father Family history of malignant neoplasm Family history of coronary artery disease Social History Social History (Updated 11/02/23 @ 18:[address] PA-C) Smoking status: Never smoker Second hand tobacco smoke exposure: No Alcohol intake: never Substance use: never Substance use type: does not use Lack of Transportation: No Lack of Food: Never True Current Housing: I Have Housing Concerned About Future Housing: No Difficulty Paying Gas/Electric Bills: No Difficulty Paying for Meds: No Currently Unemployed: No Education: Associate Degree Difficulty w/ Childcare or Family Care: No Living arrangements: with family Spiritual care concerns: No Meds Home Medications and Allergies Home Medications Medication Instructions Recorded Confirmed Type calcium carbonate 600 mg calcium 1,200 mg PO BID 11/27/22 11/02/23 History (1,500 mg) tablet (Calcium) cyclosporine 0.05 % eye drops 1 drp EACH EYE BID 11/27/22 11/02/23 History (Restasis MultiDose) esomeprazole magnesium 40 mg 40 mg PO DAILY #180 caps 03/13/23 11/02/23 Rx capsule,delayed release (Nexium) diabetic supplies, miscellan. #1 ea 06/25/23 11/02/23 Rx blood sugar diagnostic (Contour #100 ea 06/28/23 11/02/23 Rx Next Test Strips) blood-glucose meter #1 ea 06/28/23 11/02/23 Rx lancets (Microlet Lancet) #100 ea 06/28/23 11/02/23 Rx cyclobenzaprine 10 mg tablet 10 mg PO TID PRN muscle spasm #30 08/10/23 11/02/23 Rx tabs buspirone 7.5 mg tablet 7.5 mg PO BID #60 tabs 09/27/23 11/02/23 Rx metformin 500 mg tablet 1,000 mg PO BID #180 tabs 09/27/23 11/02/23 Rx ondansetron 4 mg disintegrating 4 mg PO Q8H PRN nausea and 10/04/23 11/02/23 Rx tablet vomiting #10 tabs pantoprazole 2
[2023-11-02] MEDS: busPIRone HCL 5 MG TABLET PO (18:43)
[2023-11-02] MEDS: busPIRone HCL 2.5 MG TABLET PO (18:43)
[2023-11-02] MEDS: cycloSPORINE 0.4 ML OPHTH SOLUTION 1 DROP EACH EYE (18:44)
[2023-11-02] MEDS: LACTATED RINGERS 1,000 ML 100 ML IV CONT (18:59)
[2023-11-02 19:17] LABS: Hemoglobin A1C 8.6 % (<5.7)
[2023-11-02 19:20] LABS: Ammonia < 9 umol/L (9-30)
[2023-11-02 19:31] LABS: Glucose Point of Care 351 mg/dl (65-105)
[2023-11-02] MEDS: PANTOPRAZOLE SOD SESQUIHYDRATE 20 MG TAB PO (20:08)
[2023-11-02] MEDS: INSULIN ASPART (*BKC) 100 UNITS/ML SUB-Q (20:08)
[2023-11-02 20:27] LABS: Folic Acid > 20.0 ng/mL (2.76->20)
[2023-11-02] MEDS: traMADol HCL (*CRX) 25 MG TABLET PO (21:44)
[2023-11-03] MEDS: HALOPERIDOL LACTATE 5 MG/ML VIAL IM (05:14)
--- NOTE | 2023-11-03 05:16 | PC.NURSE ---
Do Hopen ordered 5 mg IM Haldol once for agitation.
[2023-11-03] MEDS: HALOPERIDOL LACTATE 5 MG/ML VIAL 10 MG IM (05:42)
[2023-11-03 06:00] VITALS: BP 189/77; PULSE 85; RESP 13; TEMP 36.4; O2SAT 99
--- NOTE | 2023-11-03 06:06 | PC.NURSE ---
do hopen informed for elevated bp, instructed to repeat once patient is calmed down.
--- NOTE | 2023-11-03 06:16 | PC.NURSE ---
patient remains agitated at this time.
[2023-11-03 06:59] LABS: Hematocrit 35.2 % (37.0-47.0); Hemoglobin 11.2 g/dL (12.0-15.0); Mean Corpuscular HGB Conc 31.8 g/dl (32-36); Mean Corpuscular Hemoglobin 28.5 pg (26-34); Mean Corpuscular Volume 89.6 fl (80-100); Mean Platelet Volume 10.3 fl (7.4-10.4); Platelet Count Result 206 k/mm3 (150-375); Red Blood Count 3.93 M/mm3 (4.2-5.4); Red Cell Distribution Width 14.7 % (11.5-14.5); White Blood Count 5.6 K/mm3 (4.5-10.0)
[2023-11-03 07:17] LABS: Anion Gap 6 mmol/L (8-16); Blood Urea Nitrogen 12 mg/dL (7-17); Calcium 9.7 mg/dL (8.4-10.2); Carbon Dioxide 25 mmol/L (22-30); Chloride 106 mmol/L (98-107); Estimated Glomerular Filt Rate > 60; Glucose 248 mg/dL (65-110); Magnesium 1.8 mg/dL (1.6-2.3); Sodium 137 mmol/L (137-145)
[2023-11-03 07:46] LABS: Glucose Point of Care 207 mg/dl (65-105)
[2023-11-03 08:00] VITALS: BP 182/64; PULSE 83; RESP 14; TEMP 36.6; O2SAT 99
[2023-11-03] MEDS: LORazepam (*CRX) 0.5 MG TABLET PO (08:51)
[2023-11-03] MEDS: traMADol HCL (*CRX) 50 MG TABLET PO (08:53)
--- NOTE | 2023-11-03 14:26 | WPDNEURCNPN ---
Assessment and Plan Assessment and plan (1) Dementia with behavioral disturbance: Code(s): F03.918 - Unspecified dementia, unspecified severity, with other behavioral disturbance Status: Acute Plan noncommunicative at this stage with history as outlined above we can obtain the routine CT scan of the head rule out the any major abnormalities, she has had a CT scan of the head in June of this year which was negative without evidence of any hydrocephalus. We also obtained a routine EEG. Consult date: 11/06/23 HPI: Linh Mc is a 78 year old female has been admitted to [facility] through the emergency room for the complaints of behavioral issues with particular statement that she wanted to kill her but at the time of initial visit in the ER she was feeling fine and had no specific complaints . She has been taking multiple medications particularly amlodipine 10mg daily, losartan 100mg daily, and tramadol 50mg every 4 to 6 hours on p.r.n. basis she is reportedly allergic to Tylenol aspirin and hydrocodone, she does have ongoing history of bilateral carotid stenosis, hypertension, hyperlipidemia, and nontoxic multinodular goiter, in addition to the history of diabetes mellitus and also polio she is never a smoker never alcohol intake and initial exam in the emergency room was fairly unremarkable patient was not eligible for the inpatient psychiatric care and was having difficulties in getting place in memory care unit patient's COVID was positive in the ER and considering that increasing delirium and worsening memory dysfunction she was hospitalized vital signs were normal basic metabolic panel was normal except blood sugar 260 and CBC was normal drug screen was positive only for barbiturates, subsequent to hospitalization chest x-ray is negative, abdomen and pelvic studies mild adynamic ileus no bowel obstruction, cardiomegaly with possible right lower lobe infiltrate and subsequent CT scan of abdomen with only small sliding hiatal hernia, routine labs with WBC 5.6 hemoglobin 11.2 MCV 89.6 platelet count 206 blood sugar 351 down to 207 hemoglobin A1c 8.6, urine culture not specific Review of Systems Review of Systems: All systems reviewed & are unremarkable except as noted in HPI and below PMFSH Past Medical History Medical History Carotid stenosis, bilateral Cerebrovascular disease, unspecified Gastroesophageal reflux disease Hyperlipidemia Hypertension Irritable bowel syndrome Lung nodule Nontoxic multinodular goiter Osteoarthritis Osteoporosis Polio Type 2 diabetes mellitus Surgical History Surgical History History of permanent cardiac pacemaker placement (10/2020) Family History Family History Mother Hypertension Family history of diabetes mellitus in first degree relative Family history of chronic obstructive pulmonary disease Patient's mother is Diabetes mellitus Sibling Hypertension Diabetes mellitus Father Family history of malignant neoplasm Family history of coronary artery disease Social History Social History Smoking status: Never smoker Second hand tobacco smoke exposure: No Alcohol intake: never Substance use: never Substance use type: does not use Do You Feel Safe in your Home?: Yes Lack of Transportation: No Lack of Food: Never True Current Housing: I Have Housing Concerned About Future Housing: No Difficulty Paying Gas/Electric Bills: No Difficulty Paying for Meds: No Currently Unemployed: No Education: Associate Degree Difficulty w/ Childcare or Family Care: No Living arrangements: with family Spiritual care concerns: No Meds Home Medications and Allergies Home Medications Medication Instructions Recorded Confirmed Type
--- NOTE | 2023-11-03 14:28 | PM.IMPN ---
Progress Note: A&P Assessment and Plan (1) COVID: Code(s): U07.1 - COVID-19 Status: Acute (2) Dementia with behavioral disturbance: Code(s): F03.918 - Unspecified dementia, unspecified severity, with other behavioral disturbance Status: Acute (3) Hypercalcemia: Code(s): E83.52 - Hypercalcemia Status: Acute (4) Type 2 diabetes mellitus with hyperglycemia: Code(s): E11.65 - Type 2 diabetes mellitus with hyperglycemia Status: Acute (5) Hypertension: Code(s): I10 - Essential (primary) hypertension Status: Acute Plan The patient presented to the emergency department via EMS from home last evening for evaluation of behavioral issues as detailed in HPI. Labs, imaging, EKG, and all reports were personally reviewed. Behavior disturbances seemed to be related to her underlying dementia. Brain CT was not done in the ED though that does not seem necessary at this juncture given lack focal findings. Renal function is normal and no electrolyte abnormalities were noted. She did test positive for COVID this seems asymptomatic with that. TSH normal ammonia negative. She was seen by crisis in consultation and Adult protective Services were contacted. Care coordination has been consulted for help placing the patient in a memory care facility. She look dry with elevated calcium and was started on IV fluids. Agitation requiring Haldol IM add Zyprexa p.r.n. Type 2 diabetes: Random glucose was 260. Continue metformin 500 mg b.i.d.. Initiate sliding scale insulin, Accu-Cheks, and hypoglycemic protocol. A1c 8.6 Hypertension home medication DVT prophylaxis Lovenox Subjective Date/time seen: 11/03/23 14:28 Interval history: Was agitated earlier and requiring Haldol IM several doses. Patient paranoid. Was cooperative upon my visit. No overt symptoms other than confusion Review of Systems Review of Systems: All systems reviewed & are unremarkable except as noted in HPI and below Exam Narrative: General: Well-developed, nontoxic female appearing a bit younger than her stated age in no acute distress sitting up in the chair HEENT: Normocephalic, atraumatic. PERRL, EOMI. Sclera anicteric. Tacky mucous membranes. Neck: Supple. Respiratory: Respirations are nonlabored and lungs are clear to auscultation bilaterally. Cardiovascular: Regular rate and rhythm with S1-S2. Gastrointestinal: Abdomen is soft, nontender, and nondistended with positive bowel sounds. Skin: Warm and dry. No rash or lesions on limited exam. Extremities: No cyanosis, clubbing, or edema. Radial and pedal pulses intact. Neurological: Alert conversant. States she is in the hospital. Hard of hearing. Cranial nerves 2-12 are grossly intact. Speech is clear. No pronator drift. no facial asymmetry. Hand cable television technician and foot pushes equal bilaterally. Psychiatric: Cooperative with appropriate mood at this time. Seems forgetful. Objective Data Vital Signs Vital Signs: Vital Signs - 24 hr 11/02/23 19:58 11/02/23 21:08 11/03/23 06:00 Temperature 98.4 F 97.6 F Pulse Rate 71 72 85 Respiratory Rate 16 13 13 Blood Pressure 184/65 H 189/77 H Pulse Oximetry 99 98 99 Oxygen Delivery Room Air 11/03/23 08:00 11/03/23 08:00 Temperature 97.8 F Pulse Rate 83 Respiratory Rate 14 Blood Pressure 182/64 H Pulse Oximetry 99 Oxygen Delivery Room Air Intake/Output Intake/Output: Intake & Output 10/31/23 11/01/23 11/02/23 11/03/23 23:59 23:59 23:59 23:59 Intake Total 0 500 Output Total 650 Balance 0 -150 Meds/Results Medications: Active Medications Generic Name Dose Route Start Last Admin Trade Name Freq PRN Reason Stop Dose Admin Amlodipine Besylate 10 mg 11/03/23 09:00 11/03/23 08:52 Amlodipine Besylate 5 Mg Tablet PO 10 mg DAILY [facility] Administration Buspirone HCl 2.5 mg 11/02/23 18:25 11/03/23 08:52 Buspirone Hcl 2.5 Mg Tablet PO 2.5 mg BID [facility] Administratio
--- NOTE | 2023-11-03 15:03 | PCOTNOTE ---
Spoke with RN before attempting eval. RN reports that patient was up all night and this morning and is finally resting. RN reports she has altered mental status right now. Will check back tomorrow 11/04.
--- NOTE | 2023-11-03 15:39 | PCPTNOTE ---
spoke with RN, per RN hold therapy until tomorrow, pt is irritated and threatening staff, walking around in room and implusive
[2023-11-03] MEDS: OLANZapine 10 MG INJ VIAL 2.5 MG IM (16:52)
[2023-11-03] MEDS: WATER, STERILE FOR INJECTION 10 ML VIAL XX (16:53)
[2023-11-03 21:00] LABS: Glucose Point of Care 241 mg/dl (65-105)
[2023-11-04 06:00] VITALS: BP 170/70; PULSE 82; RESP 16; TEMP 36.4; O2SAT 90
[2023-11-04 06:44] LABS: Basophils Percent Auto 0.3 % (0.2-1.2); Eosinophils Absolute Auto 0.1 K/mm3 (0-0.3); Eosinophils Percent Auto 1.9 % (0-4.4); Hematocrit 37.4 % (37.0-47.0); Immature Granulocyte Absolute 0.02 K/mm3 (0.00-0.031); Immature Granulocyte Percent A 0.3 % (0-0.5); Lymphocytes Absolute Auto 2.61 K/mm3 (0.9-3.2); Lymphocytes Percent Auto 36.3 % (18.3-44.2); Mean Corpuscular HGB Conc 32.1 g/dl (32-36); Mean Corpuscular Hemoglobin 28.6 pg (26-34); Mean Platelet Volume 10.3 fl (7.4-10.4); Monocytes Absolute Auto 0.6 K/mm3 (0.1-0.6); Monocytes Percent Auto 7.9 % (2.6-8.5); Neutrophils Absolute Auto 3.8 K/mm3 (1.3-6.7); Neutrophils Percent Auto 53.3 % (45.5-73.1); Platelet Count Result 240 k/mm3 (150-375); Red Cell Distribution Width 14.5 % (11.5-14.5); White Blood Count 7.2 K/mm3 (4.5-10.0)
[2023-11-04 06:55] LABS: Alanine Aminotransferase 21 U/L (6-35); Albumin Level 3.8 g/dL (3.5-5.1); Alkaline Phosphatase 71 U/L (38-126); Anion Gap 7 mmol/L (8-16); Aspartate Amino Transferase 40 U/L (14-36); Bilirubin,Total 0.9 mg/dL (0.2-1.3); Blood Urea Nitrogen 11 mg/dL (7-17); Calcium 9.7 mg/dL (8.4-10.2); Carbon Dioxide 25 mmol/L (22-30); Chloride 106 mmol/L (98-107); Estimated Glomerular Filt Rate > 60; Glucose 192 mg/dL (65-110); Magnesium 1.8 mg/dL (1.6-2.3); Sodium 138 mmol/L (137-145)
[2023-11-04 08:31] LABS: Glucose Point of Care 210 mg/dl (65-105)
[2023-11-04] MEDS: INSULIN ASPART (*BKC) 100 UNITS/ML SUB-Q ×3 (08:31→21:13)
[2023-11-04 08:36] VITALS: O2SAT 98
[2023-11-04] MEDS: OLANZapine 10 MG INJ VIAL 2.5 MG IM (08:36)
[2023-11-04 12:06] LABS: Glucose Point of Care 275 mg/dl (65-105)
--- NOTE | 2023-11-04 12:06 | PCSTNOTE ---
Bedside communication evaluation completed. Patient seen bedside, sitting up in bed. Introduced self to patient and initiated conversation about the purpose of my visit. Patient stated that she is trying to reach her and thinks he is cheating and has abandoned her. During the entire evaluation patient was distracted and trying to reach him by phone, but was using call light instead and talking into it. Efforts to redirect were unsuccessful. Based on patient's responses during this evaluation her strengths include: following one part simple commands, recognizing names of body parts and objects and being able to identify them, responses to simple yes/no questions are somewhat accurate, and conversational speech intelligibility is within functional limits. Patient states that she is hearing impaired and has lost her hearing aids, which may or may not be accurate. However, she does appear to have a hearing loss and requests repition often. Based on this evaluation, the patient's basic communication abilities appear to be functional. No further speech therapy is recommended. Thank you for the referral of this patient.
[2023-11-04] MEDS: OLANZapine DISPERTAB 5 MG PO (13:37)
--- NOTE | 2023-11-04 14:28 | PM.IMPN ---
Progress Note: A&P Assessment and Plan (1) COVID: Code(s): U07.1 - COVID-19 Status: Acute (2) Dementia with behavioral disturbance: Code(s): F03.918 - Unspecified dementia, unspecified severity, with other behavioral disturbance Status: Acute (3) Hypercalcemia: Code(s): E83.52 - Hypercalcemia Status: Acute (4) Type 2 diabetes mellitus with hyperglycemia: Code(s): E11.65 - Type 2 diabetes mellitus with hyperglycemia Status: Acute (5) Hypertension: Code(s): I10 - Essential (primary) hypertension Status: Acute Plan The patient presented to the emergency department via EMS from home last evening for evaluation of behavioral issues as detailed in HPI. Labs, imaging, EKG, and all reports were personally reviewed. Behavior disturbances seemed to be related to her underlying dementia. Brain CT was not done in the ED though that does not seem necessary at this juncture given lack focal findings. Brain CT performed and was negative. Renal function is normal and no electrolyte abnormalities were noted. She did test positive for COVID this seems asymptomatic with that. TSH normal ammonia negative. She was seen by crisis in consultation and Adult protective Services were contacted. Care coordination has been consulted for help placing the patient in a memory care facility. She look dry with elevated calcium and was started on IV fluids. Neurology has been consulted. Receiving olanzapine IM. Refused her oral earlier today. Agitation requiring Haldol IM add Zyprexa p.r.n. Type 2 diabetes: Random glucose was 260. Continue metformin 500 mg b.i.d.. Initiate sliding scale insulin, Accu-Cheks, and hypoglycemic protocol. A1c 8.6 Hypertension home medication DVT prophylaxis Lovenox Subjective Date/time seen: 11/04/23 14:28 Interval history: Refusing her meds. Thinks her has a new girlfriend. He would not talk to her. No other complaints. Calm and cooperative today. Review of Systems Review of Systems: All systems reviewed & are unremarkable except as noted in HPI and below Exam Narrative: General: Well-developed, nontoxic female appearing a bit younger than her stated age in no acute distress HEENT: Normocephalic, atraumatic. PERRL, EOMI. Sclera anicteric. Tacky mucous membranes. Neck: Supple. Respiratory: Respirations are nonlabored and lungs are clear to auscultation bilaterally. Cardiovascular: Regular rate and rhythm with S1-S2. Gastrointestinal: Abdomen is soft, nontender, and nondistended with positive bowel sounds. Skin: Warm and dry. No rash or lesions on limited exam. Extremities: No cyanosis, clubbing, or edema. Radial and pedal pulses intact. Neurological: Alert conversant. States she is in the hospital. Hard of hearing. Cranial nerves 2-12 are grossly intact. Speech is clear. No pronator drift. no facial asymmetry. Hand artists' model and foot pushes equal bilaterally. Psychiatric: Cooperative with appropriate mood at this time. Seems forgetful. Objective Data Vital Signs Vital Signs: Vital Signs - 24 hr 11/04/23 06:00 11/04/23 08:17 11/04/23 08:55 Temperature 97.5 F L Pulse Rate 82 Respiratory Rate 16 Blood Pressure 170/70 H Pulse Oximetry 90 Oxygen Delivery Room Air Room Air 11/04/23 08:36 Temperature Pulse Rate Respiratory Rate Blood Pressure Pulse Oximetry 98 Oxygen Delivery Room Air Intake/Output Intake/Output: Intake & Output 11/01/23 11/02/23 11/03/23 11/04/23 23:59 23:59 23:59 23:59 Intake Total 0 500 Output Total 650 Balance 0 -150 Meds/Results Medications: Active Medications Generic Name Dose Route Start Last Admin Trade Name Freq PRN Reason Stop Dose Admin Amlodipine Besylate 10 mg 11/03/23 09:00 11/04/23 13:34 Amlodipine Besylate 5 Mg Tablet PO Not Given DAILY [facility] Buspirone HCl 2.5 mg 11/02/23 18:25 11/04/23 13:34 Buspirone Hcl 2.5 Mg Tablet PO Not Giv
[2023-11-04] MEDS: busPIRone HCL 2.5 MG TABLET PO (17:30)
[2023-11-04] MEDS: busPIRone HCL 5 MG TABLET PO (17:30)
[2023-11-04] MEDS: metFORMIN HCL 500 MG TABLET 1000 MG PO (17:30)
[2023-11-04 21:10] LABS: Glucose Point of Care 225 mg/dl (65-105)
[2023-11-04] MEDS: LORazepam INJ (*CRX) 2 MG/ML VIAL 1 MG IV PUSH (21:43)
[2023-11-04 21:57] VITALS: BP 163/80; PULSE 63; RESP 18; TEMP 37; O2SAT 97
[2023-11-05 06:00] VITALS: PULSE 72; RESP 18; O2SAT 99
[2023-11-05 07:38] LABS: Glucose Point of Care 213 mg/dl (65-105)
[2023-11-05 11:46] LABS: Glucose Point of Care 180 mg/dl (65-105)
--- NOTE | 2023-11-05 13:54 | PM.IMPN ---
Progress Note: A&P Assessment and Plan (1) COVID: Code(s): U07.1 - COVID-19 Status: Acute (2) Dementia with behavioral disturbance: Code(s): F03.918 - Unspecified dementia, unspecified severity, with other behavioral disturbance Status: Acute (3) Hypercalcemia: Code(s): E83.52 - Hypercalcemia Status: Acute (4) Type 2 diabetes mellitus with hyperglycemia: Code(s): E11.65 - Type 2 diabetes mellitus with hyperglycemia Status: Acute (5) Hypertension: Code(s): I10 - Essential (primary) hypertension Status: Acute Plan The patient presented to the emergency department via EMS from home last evening for evaluation of behavioral issues as detailed in HPI. Labs, imaging, EKG, and all reports were personally reviewed. Behavior disturbances seemed to be related to her underlying dementia. Brain CT was not done in the ED though that does not seem necessary at this juncture given lack focal findings. Brain CT performed and was negative. Renal function is normal and no electrolyte abnormalities were noted. She did test positive for COVID this seems asymptomatic with that. TSH normal ammonia negative. She was seen by crisis in consultation and Adult protective Services were contacted. Care coordination has been consulted for help placing the patient in a memory care facility. She look dry with elevated calcium and was started on IV fluids. Neurology has been consulted. Receiving olanzapine IM. Refused her oral. Confusion could be related to IV Ativan yesterday. Will stop that. Will order EEG as recommended by neurologist Agitation requiring Haldol IM add Zyprexa p.r.n. Type 2 diabetes: Random glucose was 260. Continue metformin 500 mg b.i.d.. Initiate sliding scale insulin, Accu-Cheks, and hypoglycemic protocol. A1c 8.6 Hypertension home medication DVT prophylaxis Lovenox Subjective Date/time seen: 11/05/23 13:54 Interval history: Patient remains confused today pretty sleepy. Received IV Ativan last night. No other overnight events reported Review of Systems Review of Systems: ROS unobtainable: Yes unobtainable due to mental status Exam Narrative: General: Well-developed, nontoxic female appearing a bit younger than her stated age in no acute distress HEENT: Normocephalic, atraumatic. PERRL, EOMI. Sclera anicteric. Tacky mucous membranes. Neck: Supple. Respiratory: Respirations are nonlabored and lungs are clear to auscultation bilaterally. Cardiovascular: Regular rate and rhythm with S1-S2. Gastrointestinal: Abdomen is soft, nontender, and nondistended with positive bowel sounds. Skin: Warm and dry. No rash or lesions on limited exam. Extremities: No cyanosis, clubbing, or edema. Radial and pedal pulses intact. Neurological: Confused Cranial nerves 2-12 are grossly intact. Follow some commands Psychiatric: Confused Objective Data Vital Signs Vital Signs: Vital Signs - 24 hr 11/04/23 20:00 11/04/23 21:57 11/05/23 06:00 Temperature 98.6 F Pulse Rate 63 72 Respiratory Rate 18 18 Blood Pressure 163/80 H Pulse Oximetry 97 99 Oxygen Delivery Room Air Intake/Output Intake/Output: Intake & Output 11/02/23 11/03/23 11/04/23 11/05/23 23:59 23:59 23:59 23:59 Intake Total 0 500 460 0 Output Total 650 Balance 0 -150 460 0 Meds/Results Medications: Active Medications Generic Name Dose Route Start Last Admin Trade Name Freq PRN Reason Stop Dose Admin Amlodipine Besylate 10 mg 11/03/23 09:00 11/04/23 13:34 Amlodipine Besylate 5 Mg Tablet PO Not Given DAILY HORACE Buspirone HCl 2.5 mg 11/02/23 18:25 11/04/23 17:30 Buspirone Hcl 2.5 Mg Tablet PO 2.5 mg BID HORACE Administration Buspirone HCl 5 mg 11/02/23 18:25 11/04/23 17:30 Buspirone Hcl 5 Mg Tablet PO 5 mg BID HORACE Administration Cyclosporine 1 drop 11/02/23 18:25 11/04/23 17:37 Cyclosporine 0.4 Ml Ophth Solution EACH EYE Not Giv
[2023-11-05 14:10] VITALS: BP 103/87; PULSE 74; RESP 18; TEMP 36.6; O2SAT 98
--- NOTE | 2023-11-05 15:21 | PC.NURSE ---
At shift change 11/05/23 0700, pt was setting off her bed alarm repeatedly. Pt was trying to climb out of bed, trying to leave to go to other places. No sitter available. Gave dose of ativan at 0830 as pt becoming louder and more aggressive. Had previously been in another room taking a different pt to dialysis and neglected to scan pt as I was returning to continue transfer of other patient. Bette, laborer ammunition assembly, and [employer] PCT, at bedside during administration. Jessy RN, able to waste medication with this RN.
[2023-11-05 16:49] LABS: Glucose Point of Care 137 mg/dl (65-105)
[2023-11-05] MEDS: busPIRone HCL 5 MG TABLET PO (17:05)
[2023-11-05] MEDS: busPIRone HCL 2.5 MG TABLET PO (17:06)
[2023-11-05] MEDS: OLANZapine DISPERTAB 5 MG PO (17:08)
[2023-11-05] MEDS: cycloSPORINE 0.4 ML OPHTH SOLUTION 1 DROP EACH EYE (17:08)
[2023-11-05] MEDS: ENOXAPARIN 40 MG/0.4 ML SYRINGE SUB-Q (17:08)
[2023-11-05] MEDS: metFORMIN HCL 500 MG TABLET 1000 MG PO (17:09)
[2023-11-05] MEDS: PANTOPRAZOLE 40 MG TABLET PO (17:09)
[2023-11-05 21:21] LABS: Glucose Point of Care 171 mg/dl (65-105)
[2023-11-05 21:29] VITALS: BP 176/99; PULSE 78; RESP 18; O2SAT 95
[2023-11-06 04:53] VITALS: BP 166/62; PULSE 74; RESP 16; TEMP 37.1; O2SAT 100
[2023-11-06 07:01] LABS: Basophils Percent Auto 0.4 % (0.2-1.2); Eosinophils Percent Auto 0.3 % (0-4.4); Hematocrit 42.1 % (37.0-47.0); Hemoglobin 13.5 g/dL (12.0-15.0); Immature Granulocyte Absolute 0.03 K/mm3 (0.00-0.031); Immature Granulocyte Percent A 0.3 % (0-0.5); Lymphocytes Absolute Auto 1.56 K/mm3 (0.9-3.2); Lymphocytes Percent Auto 13.9 % (18.3-44.2); Mean Corpuscular HGB Conc 32.1 g/dl (32-36); Mean Corpuscular Hemoglobin 28.7 pg (26-34); Mean Corpuscular Volume 89.6 fl (80-100); Mean Platelet Volume 10.7 fl (7.4-10.4); Monocytes Absolute Auto 0.7 K/mm3 (0.1-0.6); Monocytes Percent Auto 6.4 % (2.6-8.5); Neutrophils Absolute Auto 8.8 K/mm3 (1.3-6.7); Neutrophils Percent Auto 78.7 % (45.5-73.1); Platelet Count Result 276 k/mm3 (150-375); Red Cell Distribution Width 14.3 % (11.5-14.5); White Blood Count 11.2 K/mm3 (4.5-10.0)
[2023-11-06 07:10] LABS: Alanine Aminotransferase 21 U/L (6-35); Albumin Level 4.4 g/dL (3.5-5.1); Alkaline Phosphatase 92 U/L (38-126); Anion Gap 15 mmol/L (8-16); Aspartate Amino Transferase 31 U/L (14-36); Blood Urea Nitrogen 13 mg/dL (7-17); Calcium 10.1 mg/dL (8.4-10.2); Carbon Dioxide 20 mmol/L (22-30); Chloride 105 mmol/L (98-107); Estimated Glomerular Filt Rate > 60; Glucose 182 mg/dL (65-110); Magnesium 1.8 mg/dL (1.6-2.3); Potassium 3.8 mmol/L (3.4-5.0); Sodium 140 mmol/L (137-145)
[2023-11-06 08:07] LABS: Glucose Point of Care 195 mg/dl (65-105)
[2023-11-06] MEDS: ENOXAPARIN 40 MG/0.4 ML SYRINGE SUB-Q (09:32)
[2023-11-06] MEDS: busPIRone HCL 2.5 MG TABLET PO ×2 (09:33→17:58)
[2023-11-06] MEDS: LOSARTAN POTASSIUM 100 MG TABLET PO (09:33)
[2023-11-06] MEDS: metFORMIN HCL 500 MG TABLET 1000 MG PO ×2 (09:33→17:58)
[2023-11-06] MEDS: busPIRone HCL 5 MG TABLET PO ×2 (09:33→17:58)
[2023-11-06] MEDS: OLANZapine DISPERTAB 5 MG PO ×2 (09:33→09:35)
[2023-11-06] MEDS: cycloSPORINE 0.4 ML OPHTH SOLUTION 1 DROP EACH EYE ×2 (09:33→17:58)
[2023-11-06] MEDS: PANTOPRAZOLE 40 MG TABLET PO (09:34)
[2023-11-06] MEDS: amLODIPine BESYLATE 5 MG TABLET 10 MG PO (09:34)
[2023-11-06 09:35] VITALS: RESP 16; O2SAT 100
--- NOTE | 2023-11-06 10:59 | PCNEURO ---
EEG was attempted this AM but patient very confused and unable to cooperate to have completed.
--- NOTE | 2023-11-06 11:34 | WPDNEUROPN ---
Subjective Date/time seen: 11/06/23 11:34 Interval history: 78 years old right-handed female admitted to [facility] through the emergency room for the complaints of behavioral issues as outlined before. During the hospitalization CT scan of the head has been done which revealed no evidence of major stroke or bleed. She did have abdominal CT scan which revealed small sliding hiatal hernia routine blood studies are negative except that she is positive for the COVID with the diagnosis of dementia with behavioral disorder she was given IM olanzapine as she refused oral medication. Objective Data Vital Signs Vital Signs: Vital Signs - 24 hr 11/05/23 14:10 11/05/23 21:29 11/05/23 20:00 Temperature 36.6 C Pulse Rate 74 78 Respiratory Rate 18 18 Blood Pressure 103/87 176/99 H Pulse Oximetry 98 95 Oxygen Delivery Room Air 11/06/23 04:53 Temperature 37.1 C Pulse Rate 74 Respiratory Rate 16 Blood Pressure 166/62 H Pulse Oximetry 100 Oxygen Delivery Intake/Output Intake/Output: Intake & Output 11/03/23 11/04/23 11/05/23 11/06/23 23:59 23:59 23:59 23:59 Intake Total 500 460 0 Output Total 650 Balance -150 460 0 Meds/Results Medications: Active Medications Generic Name Dose Route Start Last Admin Trade Name Freq PRN Reason Stop Dose Admin Amlodipine Besylate 10 mg 11/03/23 09:00 11/06/23 09:34 Amlodipine Besylate 5 Mg Tablet PO 10 mg DAILY HORACE Administration Buspirone HCl 2.5 mg 11/02/23 18:25 11/06/23 09:33 Buspirone Hcl 2.5 Mg Tablet PO 2.5 mg BID HORACE Administration Buspirone HCl 5 mg 11/02/23 18:25 11/06/23 09:33 Buspirone Hcl 5 Mg Tablet PO 5 mg BID HORACE Administration Cyclosporine 1 drop 11/02/23 18:25 11/06/23 09:33 Cyclosporine 0.4 Ml Ophth Solution EACH EYE 1 drop BID HORACE Administration Dextrose 12.5 gm 11/02/23 18:16 Dextrose 50% 25 Gm/50 Ml Syringe IV PUSH PRN PRN Hypoglycemia Protocol Enoxaparin Sodium 40 mg 11/04/23 09:00 11/06/23 09:32 Enoxaparin 40 Mg/0.4 Ml Syringe SUB-Q 40 mg DAILY HORACE Administration Glucagon 1 mg 11/02/23 18:16 Glucagon For Inj 1 Mg Vial IM PRN PRN Hypoglycemia Protocol Glucose 15 gm 11/02/23 18:16 Glucose Oral Gel 15 Gm Of Glucse In 37.5 Gm Tube PO PRN PRN Hypoglycemia Protocol Haloperidol Lactate 5 mg 11/03/23 15:45 Haloperidol Lactate 5 Mg/Ml Vial IM Q6HR PRN Agitation Dextrose 1,000 mls @ 100 mls/hr 11/02/23 18:16 Dextrose 5% 1,000 Ml IVPB PRN PRN Hypoglycemia Protocol Insulin Aspart 2 - 5 units 11/03/23 08:00 11/06/23 08:23 Insulin Aspart (*Bkc) 100 Units/Ml SUB-Q Not Given TIDWM HORACE Protocol Insulin Aspart 1 - 2 units 11/02/23 21:00 11/05/23 21:38 Insulin Aspart (*Bkc) 100 Units/Ml SUB-Q Not Given HS HORACE Protocol Losartan Potassium 100 mg 11/03/23 09:00 11/06/23 09:33 Losartan Potassium 100 Mg Tablet PO 100 mg DAILY HORACE Administration Metformin HCl 1,000 mg 11/03/23 09:00 11/06/23 09:33 Metformin Hcl 500 Mg Tablet PO 1,000 mg BID HORACE Administration Olanzapine 5 mg 11/03/23 09:00 11/06/23 09:33 Olanzapine Dispertab 5 Mg PO 5 mg QAM HORACE Administration Olanzapine 2.5 mg 11/03/23 15:56 11/04/23 08:36 Olanzapine 10 Mg Inj Vial IM 2.5 mg Q6H PRN Administration Agitation Olanzapine 5 mg 11/05/23 09:00 11/06/23 09:35 Olanzapine Dispertab 5 Mg PO 5 mg QAM HORACE Administration Ondansetron HCl 4 mg 11/03/23 14:33 Ondansetron Hcl Odt 4 Mg Tablet PO Q8H PRN nausea and vomiting Pantoprazole Sodium 40 mg 11/03/23 09:00 11/06/23 09:34 Pantoprazole 40 Mg Tablet PO 40 mg DAILY HORACE Administration Pantoprazole Sodium 20 mg 11/02/23 21:00 11/05/23 21:39 Pantoprazole Sod Sesquihydrate 20 Mg Tab PO Not Given HS HORACE Tramadol HCl 50 mg 11/02/23 18:18 11/03/23 08:53
--- NOTE | 2023-11-06 11:49 | WPDNEUROPN ---
Progress Note: A&P Assessment and Plan (1) Dementia with behavioral disturbance: Code(s): F03.918 - Unspecified dementia, unspecified severity, with other behavioral disturbance Status: Acute Plan discontinue the antipsychotic medication, observe for the next 24hours. Subjective Date/time seen: 11/06/23 11:49 Interval history: 78 years old right-handed female admitted to [facility] through the emergency room with the complaints of behavioral issue . During the hospitalization CT scan of the head was done which revealed her to have no evidence of major stroke or bleed. Did have come abdominal CT scan which revealed small sliding hiatal hernia, routine blood studies were negative except that she was positive for the COVID with the diagnosis of underlying dementia with behavioral disorder she was given olanzapine as she had refused the oral medications. At present she is receiving BuSpar 2.5mg p.o. b.i.d. which obviously she is not taking any oral medication and also olanzapine 5mg every morning. Her most recent CBC revealed WBC 11.2 hemoglobin 13.5 platelet count 276 and her electrolytes today are normal with blood sugar of 195 also hepatic enzymes are normal. We can stop all the sedative medications. On examination today she was responsive to verbal stimuli she open her right eye did not open her left eye she moved her left lower extremity. Though she definitely responded to the verbal stimuli EEG could not be done Objective Data Vital Signs Vital Signs: Vital Signs - 24 hr 11/05/23 14:10 11/05/23 21:29 11/05/23 20:00 Temperature 36.6 C Pulse Rate 74 78 Respiratory Rate 18 18 Blood Pressure 103/87 176/99 H Pulse Oximetry 98 95 Oxygen Delivery Room Air 11/06/23 04:53 Temperature 37.1 C Pulse Rate 74 Respiratory Rate 16 Blood Pressure 166/62 H Pulse Oximetry 100 Oxygen Delivery Intake/Output Intake/Output: Intake & Output 11/03/23 11/04/23 11/05/23 11/06/23 23:59 23:59 23:59 23:59 Intake Total 500 460 0 Output Total 650 Balance -150 460 0 Meds/Results Medications: Active Medications Generic Name Dose Route Start Last Admin Trade Name Freq PRN Reason Stop Dose Admin Amlodipine Besylate 10 mg 11/03/23 09:00 11/06/23 09:34 Amlodipine Besylate 5 Mg Tablet PO 10 mg DAILY HORACE Administration Buspirone HCl 2.5 mg 11/02/23 18:25 11/06/23 09:33 Buspirone Hcl 2.5 Mg Tablet PO 2.5 mg BID HORACE Administration Buspirone HCl 5 mg 11/02/23 18:25 11/06/23 09:33 Buspirone Hcl 5 Mg Tablet PO 5 mg BID HORACE Administration Cyclosporine 1 drop 11/02/23 18:25 11/06/23 09:33 Cyclosporine 0.4 Ml Ophth Solution EACH EYE 1 drop BID HORACE Administration Dextrose 12.5 gm 11/02/23 18:16 Dextrose 50% 25 Gm/50 Ml Syringe IV PUSH PRN PRN Hypoglycemia Protocol Enoxaparin Sodium 40 mg 11/04/23 09:00 11/06/23 09:32 Enoxaparin 40 Mg/0.4 Ml Syringe SUB-Q 40 mg DAILY HORACE Administration Glucagon 1 mg 11/02/23 18:16 Glucagon For Inj 1 Mg Vial IM PRN PRN Hypoglycemia Protocol Glucose 15 gm 11/02/23 18:16 Glucose Oral Gel 15 Gm Of Glucse In 37.5 Gm Tube PO PRN PRN Hypoglycemia Protocol Haloperidol Lactate 5 mg 11/03/23 15:45 Haloperidol Lactate 5 Mg/Ml Vial IM Q6HR PRN Agitation Dextrose 1,000 mls @ 100 mls/hr 11/02/23 18:16 Dextrose 5% 1,000 Ml IVPB PRN PRN Hypoglycemia Protocol Insulin Aspart 2 - 5 units 11/03/23 08:00 11/06/23 08:23 Insulin Aspart (*Bkc) 100 Units/Ml SUB-Q Not Given TIDWM [facility] Protocol Insulin Aspart 1 - 2 units 11/02/23 21:00 11/05/23 21:38 Insulin Aspart (*Bkc) 100 Units/Ml SUB-Q Not Given HS [facility] Protocol Losartan Potassium 100 mg 11/03/23 09:00 11/06/23 09:33 Losartan Potassium 100 Mg Tablet PO 100 mg DAILY HORACE Administration Metformin HCl 1,000 mg 11/03/23 09:00
[2023-11-06 11:53] LABS: Glucose Point of Care 212 mg/dl (65-105)
[2023-11-06] MEDS: traMADol HCL (*CRX) 50 MG TABLET PO (11:54)
[2023-11-06] MEDS: INSULIN ASPART (*BKC) 100 UNITS/ML SUB-Q ×2 (11:54→21:39)
--- NOTE | 2023-11-06 16:33 | PM.IMPN ---
Progress Note: A&P Assessment and Plan (1) COVID: Code(s): U07.1 - COVID-19 Status: Acute (2) Dementia with behavioral disturbance: Code(s): F03.918 - Unspecified dementia, unspecified severity, with other behavioral disturbance Status: Acute (3) Hypercalcemia: Code(s): E83.52 - Hypercalcemia Status: Acute (4) Type 2 diabetes mellitus with hyperglycemia: Code(s): E11.65 - Type 2 diabetes mellitus with hyperglycemia Status: Acute (5) Hypertension: Code(s): I10 - Essential (primary) hypertension Status: Acute Plan The patient presented to the emergency department via EMS from home last evening for evaluation of behavioral issues as detailed in HPI. Labs, imaging, EKG, and all reports were personally reviewed. Behavior disturbances seemed to be related to her underlying dementia. Brain CT was not done in the ED though that does not seem necessary at this juncture given lack focal findings. Brain CT performed and was negative. Renal function is normal and no electrolyte abnormalities were noted. She did test positive for COVID this seems asymptomatic with that. TSH normal ammonia negative. She was seen by crisis in consultation and Adult protective Services were contacted. Care coordination has been consulted for help placing the patient in a memory care facility. She look dry with elevated calcium and was started on IV fluids. Neurology has been consulted. Receiving olanzapine IM. Refused her oral. Confusion could be related to IV Ativan. Stop Ativan. EEG pending. Discussed with neurologist. Agitation requiring Haldol IM add Zyprexa p.r.n. will stop antipsychotic as she is more somnolent Type 2 diabetes: Random glucose was 260. Continue metformin 500 mg b.i.d.. Initiate sliding scale insulin, Accu-Cheks, and hypoglycemic protocol. A1c 8.6 Hypertension home medication DVT prophylaxis Lovenox Subjective Date/time seen: 11/06/23 16:33 Interval history: Patient has been confused and agitated at times and needing medications to come down. Patient somnolent when evaluated. Discussed with neurologist today. Review of Systems Review of Systems: ROS unobtainable: Yes unobtainable due to mental status Exam Narrative: General: Well-developed, nontoxic female appearing a bit younger than her stated age in no acute distress somnolent HEENT: Normocephalic, atraumatic. PERRL, EOMI. Sclera anicteric. Tacky mucous membranes. Neck: Supple. Respiratory: Respirations are nonlabored and lungs are clear to auscultation bilaterally. Cardiovascular: Regular rate and rhythm with S1-S2. Gastrointestinal: Abdomen is soft, nontender, and nondistended with positive bowel sounds. Skin: Warm and dry. No rash or lesions on limited exam. Extremities: No cyanosis, clubbing, or edema. Radial and pedal pulses intact. Neurological: Somnolent and confused Cranial nerves 2-12 are grossly intact. Follow some commands Psychiatric: Confused Objective Data Vital Signs Vital Signs: Vital Signs - 24 hr 11/05/23 21:29 11/05/23 20:00 11/06/23 04:53 Temperature 98.7 F Pulse Rate 78 74 Respiratory Rate 18 16 Blood Pressure 176/99 H 166/62 H Pulse Oximetry 95 100 Oxygen Delivery Room Air 11/06/23 09:35 Temperature Pulse Rate Respiratory Rate 16 Blood Pressure Pulse Oximetry 100 Oxygen Delivery Room Air Intake/Output Intake/Output: Intake & Output 11/03/23 11/04/23 11/05/23 11/06/23 23:59 23:59 23:59 23:59 Intake Total 500 460 0 Output Total 650 Balance -150 460 0 Meds/Results Medications: Active Medications Generic Name Dose Route Start Last Admin Trade Name Freq PRN Reason Stop Dose Admin Amlodipine Besylate 10 mg 11/03/23 09:00 11/06/23 09:34 Amlodipine Besylate 5 Mg Tablet PO 10 mg DAILY HORACE Administration Buspirone HCl 2.5 mg 11/02/23 18:25 11/06/23 09:33 Buspirone Hcl 2.5 Mg Tablet PO 2.5 mg BID HORACE
[2023-11-06 17:25] LABS: Glucose Point of Care 196 mg/dl (65-105)
[2023-11-06 20:55] VITALS: BP 151/94; PULSE 78; RESP 20; TEMP 36.2; O2SAT 99
[2023-11-06 21:19] LABS: Glucose Point of Care 206 mg/dl (65-105)
[2023-11-07 04:08] VITALS: BP 122/50; PULSE 81; RESP 16; TEMP 36.3; O2SAT 100
[2023-11-07 06:30] LABS: Basophils Absolute Auto 0.1 K/mm3 (0.0-0.1); Basophils Percent Auto 0.3 % (0.2-1.2); Eosinophils Percent Auto 0.3 % (0-4.4); Hematocrit 42.3 % (37.0-47.0); Hemoglobin 13.4 g/dL (12.0-15.0); Immature Granulocyte Absolute 0.06 K/mm3 (0.00-0.031); Immature Granulocyte Percent A 0.4 % (0-0.5); Mean Corpuscular HGB Conc 31.7 g/dl (32-36); Mean Corpuscular Hemoglobin 28.6 pg (26-34); Mean Corpuscular Volume 90.2 fl (80-100); Mean Platelet Volume 10.5 fl (7.4-10.4); Monocytes Absolute Auto 1.1 K/mm3 (0.1-0.6); Monocytes Percent Auto 7.7 % (2.6-8.5); Neutrophils Absolute Auto 11.2 K/mm3 (1.3-6.7); Neutrophils Percent Auto 76.3 % (45.5-73.1); Platelet Count Result 293 k/mm3 (150-375); Red Blood Count 4.69 M/mm3 (4.2-5.4); Red Cell Distribution Width 14.6 % (11.5-14.5); White Blood Count 14.7 K/mm3 (4.5-10.0)
[2023-11-07 06:36] LABS: Alanine Aminotransferase 17 U/L (6-35); Albumin Level 4.3 g/dL (3.5-5.1); Alkaline Phosphatase 88 U/L (38-126); Anion Gap 14 mmol/L (8-16); Aspartate Amino Transferase 21 U/L (14-36); Bilirubin,Total 1.2 mg/dL (0.2-1.3); Blood Urea Nitrogen 18 mg/dL (7-17); Calcium 10.3 mg/dL (8.4-10.2); Carbon Dioxide 20 mmol/L (22-30); Chloride 108 mmol/L (98-107); Estimated Glomerular Filt Rate > 60; Glucose 214 mg/dL (65-110); Potassium 4.2 mmol/L (3.4-5.0); Sodium 142 mmol/L (137-145)
[2023-11-07 07:42] LABS: Glucose Point of Care 206 mg/dl (65-105)
[2023-11-07] MEDS: traMADol HCL (*CRX) 50 MG TABLET PO (10:13)
[2023-11-07] MEDS: ENOXAPARIN 40 MG/0.4 ML SYRINGE SUB-Q (10:14)
[2023-11-07] MEDS: LOSARTAN POTASSIUM 100 MG TABLET PO (10:14)
[2023-11-07] MEDS: amLODIPine BESYLATE 5 MG TABLET 10 MG PO (10:14)
[2023-11-07] MEDS: busPIRone HCL 2.5 MG TABLET PO ×2 (10:14→16:44)
[2023-11-07] MEDS: busPIRone HCL 5 MG TABLET PO ×2 (10:14→16:44)
[2023-11-07] MEDS: metFORMIN HCL 500 MG TABLET 1000 MG PO ×2 (10:14→16:44)
[2023-11-07] MEDS: PANTOPRAZOLE 40 MG TABLET PO (10:14)
[2023-11-07] MEDS: cycloSPORINE 0.4 ML OPHTH SOLUTION 1 DROP EACH EYE ×2 (10:14→16:44)
[2023-11-07 11:45] LABS: Glucose Point of Care 261 mg/dl (65-105)
[2023-11-07] MEDS: INSULIN ASPART (*BKC) 100 UNITS/ML SUB-Q ×3 (12:59→21:38)
--- NOTE | 2023-11-07 13:29 | PM.IMPN ---
Progress Note: A&P Assessment and Plan (1) Dementia with behavioral disturbance: Code(s): F03.918 - Unspecified dementia, unspecified severity, with other behavioral disturbance Status: Acute (2) Hypertension: Code(s): I10 - Essential (primary) hypertension Status: Acute (3) Gastroesophageal reflux disease: Code(s): K21.9 - Gastro-esophageal reflux disease without esophagitis Status: Acute (4) Hyperlipidemia: Code(s): E78.5 - Hyperlipidemia, unspecified Status: Acute (5) Type 2 diabetes mellitus: Code(s): E11.9 - Type 2 diabetes mellitus without complications Status: Acute (6) COVID: Code(s): U07.1 - COVID-19 Status: Acute Plan 78F w/ PMH polio, dementia, HTN, NIDDM presents with behavioral disturbance. Family reported pt to be confused and pt was threatening to kill her . The family requested patient be placed in memory care unit. Admitted on 11/02/23 While it is possible this patient has advancing dementia with behavioral disturbance, infection is not ruled out and her white count is increasing still on 11/07. Check UA, CXR, blood cultures, procalcitonin and WBC tomorrow. Covid incidentally discovered on admission and she appears asymptomatic, however it is possible she has covid fog compounding her dementia. Pt appears dry, will place her back on normal saline at 100ml/hr. Calcium borderline high normal, unlikely to cause delirium however will trend. All antipsychotics have been dc'ed, including tramadol. She received tramadol, zyprexa and haloperidol all of which can cause a paradoxical reaction. Will appreciate further neurology recs, outside of that in this case the antipsychotics are difficult to manage and a psychiatry consultation call to Dr. Ortega will be placed. Placement to follow. Full code. on home protonix. on lovenox Subjective Date/time seen: 11/07/23 13:29 Interval history: No new events overnight. Pt continues to be confused. She repeatedly tells me You need to write it down. without any further explanation. She does not participate with exam. Review of Systems Review of Systems: ROS unobtainable: Yes unobtainable due to mental status Exam Narrative: unable to obtain comprehensive exam due to patient's unwillingness to participate Const: General: comfortable and no acute distress Other: confused. uncooperative Resp: Effort & Inspection: normal respiratory effort Auscultation: clear to auscultation bilaterally Cardio: Rate: regular rate Rhythm: regular rhythm Heart sounds: no gallops, no murmurs and no rubs Objective Data Vital Signs Vital Signs: Vital Signs - 24 hr 11/06/23 20:55 11/07/23 04:08 11/07/23 08:00 Temperature 97.1 F L 97.4 F L Pulse Rate 78 81 Respiratory Rate 20 16 Blood Pressure 151/94 H 122/50 L Pulse Oximetry 99 100 Oxygen Delivery Room Air Intake/Output Intake/Output: Intake & Output 11/04/23 11/05/23 11/06/23 11/07/23 23:59 23:59 23:59 23:59 Intake Total 460 0 60 0 Balance 460 0 60 0 Meds/Results Medications: Active Medications Generic Name Dose Route Start Last Admin Trade Name Freq PRN Reason Stop Dose Admin Amlodipine Besylate 10 mg 11/03/23 09:00 11/07/23 10:14 Amlodipine Besylate 5 Mg Tablet PO 10 mg DAILY HORACE Administration Buspirone HCl 2.5 mg 11/02/23 18:25 11/07/23 10:14 Buspirone Hcl 2.5 Mg Tablet PO 2.5 mg BID HORACE Administration Buspirone HCl 5 mg 11/02/23 18:25 11/07/23 10:14 Buspirone Hcl 5 Mg Tablet PO 5 mg BID HORACE Administration Cyclosporine 1 drop 11/02/23 18:25 11/07/23 10:14 Cyclosporine 0.4 Ml Ophth Solution EACH EYE 1 drop BID HORACE Administration Dextrose 12.5 gm 11/02/23 18:16 Dextrose 50% 25 Gm/50 Ml Syringe IV PUSH PRN PRN Hypoglycemia Protocol Enoxaparin Sodium 40 mg 11/04/23 09:00 11/07/23 10:14 Enoxaparin 40 Mg/0.4 Ml Syringe SUB-Q
[2023-11-07 16:42] LABS: Glucose Point of Care 279 mg/dl (65-105)
[2023-11-07] MEDS: SODIUM CHLORIDE 0.9% IV 1,000 ML 100 ML IV CONT (16:49)
--- NOTE | 2023-11-07 18:58 | PC.NURSE ---
pt having increases agitation. pt sobbing, crying in room. pt constantly trying to get out of bed. pt screaming. pt afraid in room. provider d/c all psych meds this morning. provider notified at 1807. provider was updated on pt condition. provider stated he was not going to give psych meds, but to order soft restraints. this nurse ordered soft restrains under provider.
[2023-11-07 20:18] VITALS: BP 151/67; PULSE 81; RESP 16; TEMP 36.8; O2SAT 94
[2023-11-07 20:25] LABS: Glucose Point of Care 272 mg/dl (65-105)
[2023-11-07] MEDS: PANTOPRAZOLE SOD SESQUIHYDRATE 20 MG TAB PO (21:37)
[2023-11-07] MEDS: HALOPERIDOL LACTATE 5 MG/ML VIAL IM (23:19)
--- NOTE | 2023-11-08 00:16 | PC.NURSE ---
pt very confused, screaming, and trying to get out of bed. haldol given to pt, and pt moved to room 333 with video monitoring.
[2023-11-08] MEDS: diphenhydrAMINE HCl INJ 50 MG/ML VIAL IV PUSH (01:08)
--- NOTE | 2023-11-08 02:56 | PC.NURSE ---
pt restless, screaming, confused, and throwing self over bed rails. This RN administered both medications the provider ordered. Pt continued to try to get out of bed, and scream so restraints were applied. precautions and safety were followed,and patient will be checked on frequently.
[2023-11-08 04:27] VITALS: BP 182/72; PULSE 82; RESP 18; TEMP 36.8; O2SAT 100
[2023-11-08] MEDS: SODIUM CHLORIDE 0.9% IV 1,000 ML 100 ML IV CONT (04:57)
[2023-11-08] MEDS: hydrALAZINE HCL 20 MG/ML VIAL 10 MG IV PUSH (04:57)
[2023-11-08 06:30] LABS: Basophils Percent Auto 0.2 % (0.2-1.2); Eosinophils Percent Auto 0.1 % (0-4.4); Hematocrit 39.4 % (37.0-47.0); Hemoglobin 12.4 g/dL (12.0-15.0); Immature Granulocyte Absolute 0.05 K/mm3 (0.00-0.031); Immature Granulocyte Percent A 0.4 % (0-0.5); Lymphocytes Absolute Auto 1.13 K/mm3 (0.9-3.2); Lymphocytes Percent Auto 8.3 % (18.3-44.2); Mean Corpuscular HGB Conc 31.5 g/dl (32-36); Mean Corpuscular Hemoglobin 28.5 pg (26-34); Mean Corpuscular Volume 90.6 fl (80-100); Mean Platelet Volume 10.4 fl (7.4-10.4); Monocytes Absolute Auto 0.9 K/mm3 (0.1-0.6); Monocytes Percent Auto 6.4 % (2.6-8.5); Neutrophils Absolute Auto 11.5 K/mm3 (1.3-6.7); Neutrophils Percent Auto 84.6 % (45.5-73.1); Platelet Count Result 257 k/mm3 (150-375); Red Blood Count 4.35 M/mm3 (4.2-5.4); Red Cell Distribution Width 14.6 % (11.5-14.5); White Blood Count 13.6 K/mm3 (4.5-10.0)
[2023-11-08 06:46] LABS: Alanine Aminotransferase 18 U/L (6-35); Alkaline Phosphatase 87 U/L (38-126); Anion Gap 14 mmol/L (8-16); Aspartate Amino Transferase 27 U/L (14-36); Blood Urea Nitrogen 22 mg/dL (7-17); Calcium 10.4 mg/dL (8.4-10.2); Carbon Dioxide 16 mmol/L (22-30); Chloride 111 mmol/L (98-107); Estimated Glomerular Filt Rate > 60; Glucose 322 mg/dL (65-110); Magnesium 1.9 mg/dL (1.6-2.3); Potassium 3.9 mmol/L (3.4-5.0); Sodium 141 mmol/L (137-145)
[2023-11-08 07:00] VITALS: BP 158/63
[2023-11-08 07:09] LABS: Procalcitonin 0.1 ng/mL
[2023-11-08 07:56] LABS: Glucose Point of Care 276 mg/dl (65-105)
[2023-11-08 08:00] VITALS: BP 160/53; PULSE 50; RESP 24; TEMP 36.7; O2SAT 96
[2023-11-08] MEDS: INSULIN ASPART (*BKC) 100 UNITS/ML SUB-Q ×3 (08:41→21:53)
[2023-11-08] MEDS: cycloSPORINE 0.4 ML OPHTH SOLUTION 1 DROP EACH EYE (08:45)
[2023-11-08] MEDS: busPIRone HCL 2.5 MG TABLET PO (08:45)
[2023-11-08] MEDS: busPIRone HCL 5 MG TABLET PO (08:45)
[2023-11-08] MEDS: PANTOPRAZOLE 40 MG TABLET PO (08:45)
[2023-11-08] MEDS: LOSARTAN POTASSIUM 100 MG TABLET PO (08:45)
[2023-11-08] MEDS: ENOXAPARIN 40 MG/0.4 ML SYRINGE SUB-Q (08:50)
[2023-11-08] MEDS: amLODIPine BESYLATE 5 MG TABLET 10 MG PO (08:50)
[2023-11-08] MEDS: SODIUM CHLORIDE 0.9% IV 1,000 ML 150 ML IV CONT ×2 (08:58→13:16)
--- NOTE | 2023-11-08 10:02 | PM.IMPN ---
Progress Note: A&P Assessment and Plan (1) Dementia with behavioral disturbance: Code(s): F03.918 - Unspecified dementia, unspecified severity, with other behavioral disturbance Status: Acute (2) Type 2 diabetes mellitus: Code(s): E11.9 - Type 2 diabetes mellitus without complications Status: Acute (3) Agitation: Code(s): R45.1 - Restlessness and agitation Status: Acute (4) COVID: Code(s): U07.1 - COVID-19 Status: Acute (5) Gastroesophageal reflux disease: Code(s): K21.9 - Gastro-esophageal reflux disease without esophagitis Status: Acute (6) Hyperlipidemia: Code(s): E78.5 - Hyperlipidemia, unspecified Status: Acute (7) Hypertension: Code(s): I10 - Essential (primary) hypertension Status: Acute Plan 78F w/ PMH dementia, polio, anxiety on buspar, b/l carotid stenosis, GERD, HLD, HTN, irritable bowel syndrome, OA, osteoporosis, NIDDM presented from home with behavioral disturbance. Reportedly she said she wanted to kill her and was confused. Admitted on 11/02/23 # altered mental status/behavioral disturbance - dementia reported by family with intermittent episodes of confusion, however on last ER admission she was documented as A&Ox3. currently, she has hyperactive and confused speech. - CT head on admission w/o acute abnormalities. MRI brain and EEG unable to obtain thus far due to patient not cooperating. neurology consulted, no further recommendations - acetaminophen/salicylate negative. utox positive for barbiturates. ammonia and b12 and tsh normal. - on admission received zyprexa 2.5mg IM x1. thereafter it was discontinued and pt was monitored, no change in symptoms. on 11/07 PM she received one time dose benadryl 50mg IV and Haldol 5mg IM x1, there hasn't been change in her mental status again. - 10/30 psychiatry consulted, Dr. Ortega. His assistance is greatly appreciated. For now, hold narcotics and antipsychotics except for her home buspirone. physical restraints applied. It is unclear if she has Covid fog, she is otherwise asymptomatic # anxiety - on buspar at home. continue, pending psych eval from Dr. Ortega. # COVID PCR positive - on room air, ctm. # GERD - continue protonix # OA - was on tramadol at home, dc'ed. # HTN - ctm # NIDDM - accuchecks ACHS and ISS # hypercalcemia - she has been high in the past, calcium of 10.4 unlikely to cause mental status changes. nonetheless increase NS from 100 to 150ml/hr as she still appears dry # dehydration - she appears dry. NS at 150ml/hr for today. - monitor hyperchloremic acidosis. dc/ metformin to avoid further acidosis FEN: cardiac diabetic diet GI prophylaxis: on home protonix DVT prophylaxis: lovenox Lines: pIV Code Status: Full Code Dispo: guarded More than 35 minutes spent on chart review, patient interaction and assessment and plan. Subjective Date/time seen: 11/08/23 10:02 Interval history: patient given one time dose of benadryl and haldol overnight. she remains with confusion this morning, telling me repeatedly she has told a dianna something. she is redirected but quickly reverts to delusional speech Review of Systems Review of Systems: All systems reviewed & are unremarkable except as noted in HPI and below Exam Const: Other: agitated. hyperactive speech, and incomprehensible. HENMT: Mouth: Yes dry mucous membranes Eyes: Pupils: Equal, round and reactive pupils present Resp: Effort & Inspection: normal respiratory effort Auscultation: clear to auscultation bilaterally, no crackles, no rales and no rhonchi Cardio: Rate: regular rate Rhythm: regular rhythm Heart sounds: no gallops, no murmurs and no rubs GI: GI Palp: Yes Soft to palpation and No Tenderness to palpation present (GI) Extrem: General: no edema Psych: Affect: No normal affect Objective Data Vital Signs Vital Signs: Vital Signs - 24 hr 11/07/23 20:18
[2023-11-08 11:29] LABS: Glucose Point of Care 365 mg/dl (65-105)
[2023-11-08 12:00] VITALS: BP 157/63; PULSE 93; RESP 22; TEMP 37.4; O2SAT 97
[2023-11-08 16:00] VITALS: BP 140/58; PULSE 87; RESP 18; TEMP 36.4; O2SAT 97
[2023-11-08 16:37] LABS: Glucose Point of Care 240 mg/dl (65-105)
--- NOTE | 2023-11-08 17:45 | PC.NURSE ---
Patient is spitting dinner out, refusing to eat or drink, refusing to take medications.
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
[2023-11-08 21:26] LABS: Vitamin D 25 Hydroxy 24.6 ng/mL
[2023-11-08 21:39] LABS: Hepatitis B Surface Antigen Negative (Negative)
[2023-11-08 21:45] LABS: HAV RESULT Negative (Negative); Hepatitis B Core IgM Result Negative (Negative)
[2023-11-08 21:48] LABS: HIV 1/2 Ab P24 Ag Result Negative (Negative)
[2023-11-08 21:50] VITALS: BP 162/70; PULSE 79; RESP 18; TEMP 36.3; O2SAT 100
[2023-11-08 21:56] LABS: Hepatitis C Virus Antibody Negative (Negative)
[2023-11-08 22:03] LABS: Glucose Point of Care 266 mg/dl (65-105)
[2023-11-09 01:30] VITALS: BP 151/61; PULSE 78; RESP 18; TEMP 35.8; O2SAT 98
[2023-11-09] MEDS: SODIUM CHLORIDE 0.9% IV 1,000 ML 150 ML IV CONT (05:06)
[2023-11-09 05:50] VITALS: BP 160/71; PULSE 79; RESP 24; TEMP 35.8; O2SAT 100
[2023-11-09 06:33] LABS: Basophils Percent Auto 0.3 % (0.2-1.2); Eosinophils Percent Auto 0.3 % (0-4.4); Hematocrit 37.3 % (37.0-47.0); Hemoglobin 11.6 g/dL (12.0-15.0); Immature Granulocyte Absolute 0.03 K/mm3 (0.00-0.031); Immature Granulocyte Percent A 0.3 % (0-0.5); Lymphocytes Absolute Auto 1.45 K/mm3 (0.9-3.2); Lymphocytes Percent Auto 13.1 % (18.3-44.2); Mean Corpuscular HGB Conc 31.1 g/dl (32-36); Mean Corpuscular Hemoglobin 28.5 pg (26-34); Mean Corpuscular Volume 91.6 fl (80-100); Mean Platelet Volume 10.6 fl (7.4-10.4); Monocytes Absolute Auto 0.8 K/mm3 (0.1-0.6); Monocytes Percent Auto 7.5 % (2.6-8.5); Neutrophils Absolute Auto 8.7 K/mm3 (1.3-6.7); Neutrophils Percent Auto 78.5 % (45.5-73.1); Platelet Count Result 250 k/mm3 (150-375); Red Blood Count 4.07 M/mm3 (4.2-5.4); Red Cell Distribution Width 15.1 % (11.5-14.5); White Blood Count 11.1 K/mm3 (4.5-10.0)
[2023-11-09 06:43] LABS: Anion Gap 11 mmol/L (8-16); Blood Urea Nitrogen 18 mg/dL (7-17); Calcium 10.3 mg/dL (8.4-10.2); Carbon Dioxide 21 mmol/L (22-30); Chloride 115 mmol/L (98-107); Estimated Glomerular Filt Rate > 60; Glucose 271 mg/dL (65-110); Potassium 3.4 mmol/L (3.4-5.0); Sodium 147 mmol/L (137-145)
[2023-11-09 07:49] LABS: Glucose Point of Care 262 mg/dl (65-105)
[2023-11-09 08:00] VITALS: BP 152/79; PULSE 76; RESP 20; TEMP 36.7; O2SAT 100
--- NOTE | 2023-11-09 09:08 | PM.IMPN ---
Progress Note: A&P Assessment and Plan (1) Delirium due to another medical condition: Code(s): F05 - Delirium due to known physiological condition Status: Acute (2) Dementia with psychosis: Code(s): F03.92 - Unspecified dementia, unspecified severity, with psychotic disturbance Status: Acute (3) Dementia with behavioral disturbance: Code(s): F03.918 - Unspecified dementia, unspecified severity, with other behavioral disturbance Status: Acute (4) Hypertension: Code(s): I10 - Essential (primary) hypertension Status: Acute (5) Type 2 diabetes mellitus: Code(s): E11.9 - Type 2 diabetes mellitus without complications Status: Acute (6) COVID: Code(s): U07.1 - COVID-19 Status: Acute (7) Hypernatremia: Code(s): E87.0 - Hyperosmolality and hypernatremia Status: Acute Plan 78F w/ PMH dementia, polio, anxiety on buspar, b/l carotid stenosis, GERD, HLD, HTN, irritable bowel syndrome, OA, osteoporosis, NIDDM presented from home with behavioral disturbance. Reportedly she said she wanted to kill her and was confused. Admitted on 11/02/23 # altered mental status - She has unspecified dementia now with behavioral disturbance. She was on buspar at home. dementia reported by family with intermittent episodes of confusion, however on last ER admission she was documented as A&Ox3. currently, she has hyperactive and confused speech. - CT head on admission w/o acute abnormalities. . UA and CXR not indicative of infection. MRI brain and EEG unable to obtain thus far due to patient not cooperating. neurology consulted, no further recommendations - acetaminophen/salicylate negative. utox positive for barbiturates. ammonia and b12? and tsh normal. RPR pending. infectious hepatitis screen and HIV screen negative. - on admission received zyprexa 2.5mg IM x1. thereafter it was discontinued and pt was monitored, no change in symptoms. on 11/07 PM she received one time dose benadryl 50mg IV and Haldol 5mg IM x1. - 11/08 psychiatry consulted. Buspar was continued and Dr. Ortega added risperdal 0.5mg po qhs, however she is refusing to take PO. she will need IM, however will need to discuss this with Dr. Ortega - The patient is full code. Dr. Ortega requested POA paperwork from family if any exists. The pt has an underlying neurocognitive disorder (dementia) and very possibly superimposed delirium from Covid. She comes from home and now the family wants her in a memory care unit. However, the patient remains in restraints and will not be accepted to any SNF in this condition. Monitoring as we get Risperdal administered is appropriate however she may likely need transfer to acute psychiatric [place]. She could improve over time if COVID is affecting her mental status. However, this could take weeks, or never. # dehydration - she appears dry. and has poor PO intake. NS started at 150ml/hr on 11/08. - 11/09. hypernatremia 147. d/c NS and start D5W @ 50ml/hr (high blood sugar already), repeat BMP at 1400 # hyperchloremic acidosis - 2/2 to NS administration - metformin dc'ed # anxiety - on buspar at home. # COVID PCR positive - on room air, ctm. # GERD - continue protonix # OA - was on tramadol at home, dc'ed. # HTN - ctm # NIDDM - accuchecks ACHS and ISS # hypercalcemia - chronic, and likely affected by dehydration as well. treat dehydration FEN: cardiac diabetic diet GI prophylaxis: on home protonix DVT prophylaxis: lovenox Lines: pIV Code Status: Full Code Dispo: guarded More than 35 minutes spent on chart review, patient interaction and assessment and plan. Subjective Date/time seen: 11/09/23 09:08 Interval history: Patient was relatively calm overnight, although stayed in restraints. She would not take her pills, thus she did not receive any Buspar or Risperdal. Upon entering the room the pt was sleeping. I woke her and she was pleasant. I told her I was her d
[2023-11-09 09:23] LABS: Magnesium 1.9 mg/dL (1.6-2.3)
[2023-11-09] MEDS: INSULIN ASPART (*BKC) 100 UNITS/ML SUB-Q ×3 (09:41→21:20)
[2023-11-09] MEDS: DEXTROSE 5% 1,000 ML 1,000 ML 50 ML IV CONT (09:41)
[2023-11-09] MEDS: busPIRone HCL 2.5 MG TABLET PO (09:43)
[2023-11-09] MEDS: amLODIPine BESYLATE 5 MG TABLET 10 MG PO (09:44)
[2023-11-09] MEDS: PANTOPRAZOLE 40 MG TABLET PO (09:44)
[2023-11-09] MEDS: LOSARTAN POTASSIUM 100 MG TABLET PO (09:44)
[2023-11-09] MEDS: busPIRone HCL 5 MG TABLET PO (09:44)
[2023-11-09 11:50] LABS: Glucose Point of Care 117 mg/dl (65-105)
[2023-11-09 14:00] VITALS: BP 151/66; PULSE 87; RESP 20; TEMP 37; O2SAT 98
[2023-11-09 14:31] LABS: Anion Gap 12 mmol/L (8-16); Blood Urea Nitrogen 16 mg/dL (7-17); Calcium 10.4 mg/dL (8.4-10.2); Carbon Dioxide 22 mmol/L (22-30); Chloride 113 mmol/L (98-107); Estimated Glomerular Filt Rate > 60; Glucose 171 mg/dL (65-110); Potassium 2.9 mmol/L (3.4-5.0); Sodium 147 mmol/L (137-145)
[2023-11-09 14:42] LABS: Rapid Plasma Reagin Non-Reactive (NonReactive)
[2023-11-09 16:21] VITALS: BP 166/68; PULSE 91; RESP 20; TEMP 37.4; O2SAT 96
[2023-11-09 16:38] LABS: Glucose Point of Care 231 mg/dl (65-105)
[2023-11-09] MEDS: KCL 20 MEQ/D5W 1,000 ML 1,000 ML 150 ML IV CONT (18:46)
[2023-11-09 22:00] VITALS: BP 141/61; PULSE 77; RESP 18; O2SAT 95
[2023-11-09 23:28] LABS: Anion Gap 9 mmol/L (8-16); Blood Urea Nitrogen 15 mg/dL (7-17); Calcium 10.2 mg/dL (8.4-10.2); Carbon Dioxide 22 mmol/L (22-30); Chloride 111 mmol/L (98-107); Estimated Glomerular Filt Rate > 60; Glucose 239 mg/dL (65-110); Sodium 142 mmol/L (137-145)
[2023-11-10 00:21] LABS: Glucose Point of Care 258 mg/dl (65-105)
[2023-11-10 06:00] VITALS: BP 151/70; PULSE 73; RESP 18; TEMP 36.6; O2SAT 99
[2023-11-10 06:00] LABS: Basophils Percent Auto 0.3 % (0.2-1.2); Eosinophils Absolute Auto 0.1 K/mm3 (0-0.3); Eosinophils Percent Auto 0.7 % (0-4.4); Hematocrit 36.5 % (37.0-47.0); Hemoglobin 11.2 g/dL (12.0-15.0); Immature Granulocyte Absolute 0.03 K/mm3 (0.00-0.031); Immature Granulocyte Percent A 0.3 % (0-0.5); Lymphocytes Absolute Auto 1.84 K/mm3 (0.9-3.2); Lymphocytes Percent Auto 17.8 % (18.3-44.2); Mean Corpuscular HGB Conc 30.7 g/dl (32-36); Mean Corpuscular Hemoglobin 28.5 pg (26-34); Mean Corpuscular Volume 92.9 fl (80-100); Mean Platelet Volume 10.6 fl (7.4-10.4); Monocytes Absolute Auto 0.8 K/mm3 (0.1-0.6); Monocytes Percent Auto 7.4 % (2.6-8.5); Neutrophils Absolute Auto 7.6 K/mm3 (1.3-6.7); Neutrophils Percent Auto 73.5 % (45.5-73.1); Platelet Count Result 230 k/mm3 (150-375); Red Blood Count 3.93 M/mm3 (4.2-5.4); Red Cell Distribution Width 14.7 % (11.5-14.5); White Blood Count 10.4 K/mm3 (4.5-10.0)
[2023-11-10 06:14] LABS: Anion Gap 10 mmol/L (8-16); Blood Urea Nitrogen 13 mg/dL (7-17); Calcium 9.7 mg/dL (8.4-10.2); Carbon Dioxide 22 mmol/L (22-30); Chloride 105 mmol/L (98-107); Estimated Glomerular Filt Rate > 60; Glucose 337 mg/dL (65-110); Potassium 3.1 mmol/L (3.4-5.0); Sodium 137 mmol/L (137-145)
[2023-11-10 07:46] LABS: Glucose Point of Care 335 mg/dl (65-105)
[2023-11-10] MEDS: PANTOPRAZOLE SODIUM IV 40 MG VIAL IV PUSH (09:44)
[2023-11-10] MEDS: INSULIN ASPART (*BKC) 100 UNITS/ML SUB-Q (09:45)
--- NOTE | 2023-11-10 13:47 | PM.IMPN ---
Progress Note: A&P Assessment and Plan (1) Delirium due to another medical condition: Code(s): F05 - Delirium due to known physiological condition Status: Acute Assessment and Plan: Stable, continue current treatment (2) Dementia with psychosis: Code(s): F03.92 - Unspecified dementia, unspecified severity, with psychotic disturbance Status: Acute Assessment and Plan: Stable, continue current treatment (3) Hypertension: Code(s): I10 - Essential (primary) hypertension Status: Acute Assessment and Plan: Stable, continue current treatment (4) Type 2 diabetes mellitus: Code(s): E11.9 - Type 2 diabetes mellitus without complications Status: Acute Assessment and Plan: Stable, continue current treatment (5) COVID: Code(s): U07.1 - COVID-19 Status: Acute Assessment and Plan: Stable, continue current treatment (6) Hypernatremia: Code(s): E87.0 - Hyperosmolality and hypernatremia Status: Acute Assessment and Plan: Improving Plan 78F w/ PMH dementia, polio, anxiety on buspar, b/l carotid stenosis, GERD, HLD, HTN, irritable bowel syndrome, OA, osteoporosis, NIDDM presented from home with behavioral disturbance. Reportedly she said she wanted to kill her and was confused. Admitted on 11/02/23 # altered mental status - She has unspecified dementia now with behavioral disturbance. She was on buspar at home. dementia reported by family with intermittent episodes of confusion, however on last ER admission she was documented as A&Ox3. currently, she has hyperactive and confused speech. - CT head on admission w/o acute abnormalities. . UA and CXR not indicative of infection. MRI brain and EEG unable to obtain thus far due to patient not cooperating. neurology consulted, no further recommendations - acetaminophen/salicylate negative. utox positive for barbiturates. ammonia and b12? and tsh normal. RPR pending. infectious hepatitis screen and HIV screen negative. - on admission received zyprexa 2.5mg IM x1. thereafter it was discontinued and pt was monitored, no change in symptoms. on 11/07 PM she received one time dose benadryl 50mg IV and Haldol 5mg IM x1. - 11/08 psychiatry consulted. Buspar was continued and Dr. Ortega added risperdal 0.5mg po qhs, however she is refusing to take PO. she will need IM, however will need to discuss this with Dr. Ortega - The patient is full code. Dr. Ortega requested POA paperwork from family if any exists. The pt has an underlying neurocognitive disorder (dementia) and very possibly superimposed delirium from Covid. She comes from home and now the family wants her in a memory care unit. However, the patient remains in restraints and will not be accepted to any SNF in this condition. Monitoring as we get Risperdal administered is appropriate however she may likely need transfer to acute psychiatric [place]. She could improve over time if COVID is affecting her mental status. However, this could take weeks, or never. # dehydration - she appears dry. and has poor PO intake. NS started at 150ml/hr on 11/08. - 11/09. hypernatremia 147. d/c NS and start D5W @ 50ml/hr (high blood sugar already), repeat BMP at 1400 # hyperchloremic acidosis - 2/2 to NS administration - metformin dc'ed # anxiety - on buspar at home. # COVID PCR positive - on room air, ctm. # GERD - continue protonix # OA - was on tramadol at home, dc'ed. # HTN - ctm # NIDDM - accuchecks ACHS and ISS # hypercalcemia - chronic, and likely affected by dehydration as well. treat dehydration 11/09/23 No new overnight complaints. Patient getting better. Will continue current treatment monitor closely. Subjective Date/time seen: 11/10/23 13:47 Interval history: Patient was seen during the morning rounds today. No new overnight complaints. No shortness of breath or chest pain Mood stable Review of Systems Review of Systems:
[2023-11-10 13:59] VITALS: BP 123/54; PULSE 70; RESP 18; TEMP 36.5; O2SAT 99
[2023-11-10] MEDS: OLANZapine 5 MG, WATER, STERILE FOR INJECTION 2.1 ML IM (15:26)
[2023-11-10 16:41] LABS: Glucose Point of Care 330 mg/dl (65-105)
--- NOTE | 2023-11-10 16:48 | PM.IMHP ---
H&P: HPI History of Present Illness Date/Time: 11/10/23 16:48 Chief Complaint: Uncontrolled agitation Narrative: 78-year-old female was at home with her who was her primary caregiver due to her dementia. She became increasingly paranoid and combative at home. She had delusional thoughts about him trying to kill her and beating her. She refused to eat or drink. She was brought [facility] with delirium and confusion and found to be COVID positive and also had hypernatremia. She was treated with IV fluids and did not require oxygen therapy. Psychiatric wealth management consultant felt she had end-stage dementia with terminal prognosis. Neurology was consulted as well and concurred. opted for inpatient hospice for control of her agitation and psychosis. Review of Systems Review of Systems: ROS unobtainable: Yes unobtainable due to medical condition PMFSH Past Medical History Medical History Carotid stenosis, bilateral Cerebrovascular disease, unspecified Gastroesophageal reflux disease Hyperlipidemia Hypertension Irritable bowel syndrome Lung nodule Nontoxic multinodular goiter Osteoarthritis Osteoporosis Polio Type 2 diabetes mellitus Surgical History Surgical History History of permanent cardiac pacemaker placement (10/2020) Family History Family History Mother Hypertension Family history of diabetes mellitus in first degree relative Family history of chronic obstructive pulmonary disease Patient's mother is Diabetes mellitus Sibling Hypertension Diabetes mellitus Father Family history of malignant neoplasm Family history of coronary artery disease Social History Social History (Updated 11/10/23 @ 16:49 by Ludin Falcon MD) Social History: Code Status: DNR Smoking status: Never smoker Second hand tobacco smoke exposure: No Alcohol intake: never Substance use: never Substance use type: does not use Do You Feel Safe in your Home?: Yes Lack of Transportation: No Lack of Food: Never True Current Housing: I Have Housing Concerned About Future Housing: No Difficulty Paying Gas/Electric Bills: No Difficulty Paying for Meds: No Currently Unemployed: No Education: Associate Degree Difficulty w/ Childcare or Family Care: No Living arrangements: with family Spiritual care concerns: No Meds Home Medications and Allergies Home Medications Medication Instructions Recorded Confirmed Type calcium carbonate 600 mg calcium 1,200 mg PO BID 11/27/22 11/02/23 History (1,500 mg) tablet (Calcium) cyclosporine 0.05 % eye drops 1 drp EACH EYE BID 11/27/22 11/02/23 History (Restasis MultiDose) esomeprazole magnesium 40 mg 40 mg PO DAILY #180 caps 03/13/23 11/02/23 Rx capsule,delayed release (Nexium) diabetic supplies, miscellan. #1 ea 06/25/23 11/02/23 Rx blood sugar diagnostic (Contour #100 ea 06/28/23 11/02/23 Rx Next Test Strips) blood-glucose meter #1 ea 06/28/23 11/02/23 Rx lancets (Microlet Lancet) #100 ea 06/28/23 11/02/23 Rx cyclobenzaprine 10 mg tablet 10 mg PO TID PRN muscle spasm #30 08/10/23 11/02/23 Rx tabs buspirone 7.5 mg tablet 7.5 mg PO BID #60 tabs 09/27/23 11/02/23 Rx metformin 500 mg tablet 1,000 mg PO BID #180 tabs 09/27/23 11/02/23 Rx ondansetron 4 mg disintegrating 4 mg PO Q8H PRN nausea and 10/04/23 11/02/23 Rx tablet vomiting #10 tabs pantoprazole 20 mg tablet,delayed 20 mg PO HS 4 weeks #28 tabs 10/29/23 11/02/23 Rx release amlodipine 10 mg tablet 10 mg PO DAILY 11/02/23 11/02/23 History losartan 100 mg tablet 100 mg PO DAILY 11/02/23 11/02/23 History tramadol 50 mg tablet 50 mg PO .COMPLEX PRN Pain (Scale 11/02/23 11/02/23 History Score 4-6) Allergies Allergy/AdvReac Type Severity Reaction Status Date / Time acetaminophen AdvReac Interme
--- NOTE | 2023-12-12 12:22 | PM.DS ---
DS: Admitting Diagnosis Discharge Date 11/10/23 Admitting Diagnosis (1) Delirium due to another medical condition: ?Code(s): F05 - Delirium due to known physiological condition ?Status:?Acute ?Assessment and Plan: Stable, continue current treatment (2) Dementia with psychosis: ?Code(s): F03.92 - Unspecified dementia, unspecified severity, with psychotic disturbance ?Status:?Acute ?Assessment and Plan: Stable, continue current treatment (3) Hypertension: ?Code(s): I10 - Essential (primary) hypertension ?Status:?Acute ?Assessment and Plan: Stable, continue current treatment (4) Type 2 diabetes mellitus: ?Code(s): E11.9 - Type 2 diabetes mellitus without complications ?Status:?Acute ?Assessment and Plan: Stable, continue current treatment (5) COVID: ?Code(s): U07.1 - COVID-19 ?Status:?Acute ?Assessment and Plan: Stable, continue current treatment (6) Hypernatremia: ?Code(s): E87.0 - Hyperosmolality and hypernatremia ?Status:?Acute DS: Summary Hospital Course Reason for hospitalization: After discussion with the family. Patient was transferred to hospice care Hospital Course: Transfer to hospice care Status at Discharge Cognitive/behavioral status at discharge: Stable Time Spent with Patient Time attestation: Total time spent providing and/or coordinating discharge services: Exam Const: General: cooperative and no acute distress Orientation/consciousness: oriented to person, oriented to place, oriented to time and patient oriented x3 HENMT: Head: normal to inspection Ears: hearing grossly normal bilaterally and external ears normal Face/Nose/Sinus: Normal external nose present and normal facial exam Face and sinus: normal facial exam Mouth: Yes Normal oral and palatal mucosa present Eyes: General: appearance normal, both eyes and all related structures Neck: Neck: normal visual inspection and full ROM Chest: Chest palpation & inspection: normal inspection of the chest and normal palpation of entire chest wall Resp: Effort & Inspection: normal respiratory effort Auscultation: clear to auscultation bilaterally Cardio: Jugular venous distension: no JVD Palpation: normal PMI Rate: regular rate Heart sounds: S1 normal heart sound present and S2 normal heart sound present GI: Inspection: normal to inspection GI Palp: No abdominal tenderness Neuro: General: oriented to person, oriented to place, oriented to time and patient oriented x3 Cranial nerves: Yes CN's II-XII intact bilaterally Speech: normal speech Gait exam (Neuro): Normal gait present Motor exam (neuro): 5/5 motor strength present throughout Sensory Exam: normal sensation Psych: Appearance: grossly normal Discharge Plan Discharge Attending physician on discharge: Max Garza Consulting providers: Xavier Ortega; John Tinoco; Hanna Mckeon; Michael Flynn; Estelle St; Addison Dominique; Pedro Pablo Thomas Discharging Clinician: Max Garza Patient Disposition: Hospice - Medical Facility Activity: as tolerated Diet: as tolerated Stand Alone Forms: General Discharge Information Discharge Medications: Continued calcium carbonate [Calcium 600] 600 mg calcium (1,500 mg) tablet 1,200 mg PO BID Restasis MultiDose 0.05 % drops 1 drp EACH EYE BID ondansetron 4 mg tablet,disintegrating 4 mg PO Q8H PRN (Reason: nausea and vomiting) Qty: 10 0RF cyclobenzaprine 10 mg tablet 10 mg PO TID PRN (Reason: muscle spasm) Qty: 30 0RF pantoprazole 20 mg tablet,delayed release (DR/EC) 20 mg PO HS 28 Days Qty: 28 0RF Rx Instructions: One tablet QHS for four weeks beginning 10/29 amlodipine 10 mg tablet 10 mg PO DAILY losartan 100 mg tablet 100 mg PO DAILY tramadol 50 mg tablet 50 mg PO .COMPLEX PRN (Reason: Pain (Scale Score 4-6)) Rx Instructions: 50 mg PO One po in AM and 1/2 in PM
== END 2023-11-10 13:00 | disposition hospice, inpatient (51) | DRG 884 ==
LOC: ANHED 11-02 12:26 → ANH3MEDSUR 11-02 12:40
PROVIDERS: General Practice; Hospitalist; Internal Medicine; Physician Assistant; Psychiatry & Neurology Psychiatry; Admitting Provider Student in an Organized Health Care Education/Training Program; Emergency Provider Emergency Medicine; PCP Family Medicine; Visit Provider Internal Medicine
DX: F03.92 Unspecified dementia, unspecified severity, with psychotic disturbance (principal); U07.1 COVID-19; F05 Delirium due to known physiological condition; E87.0 Hyperosmolality and hypernatremia; E87.29 Other acidosis; E11.65 Type 2 diabetes mellitus with hyperglycemia; E04.2 Nontoxic multinodular goiter; E86.0 Dehydration; E83.52 Hypercalcemia; E78.5 Hyperlipidemia, unspecified; F41.9 Anxiety disorder, unspecified; I10 Essential (primary) hypertension; K58.9 Irritable bowel syndrome, unspecified; K21.9 Gastro-esophageal reflux disease without esophagitis; M81.0 Age-related osteoporosis without current pathological fracture; M47.816 Spondylosis without myelopathy or radiculopathy, lumbar region; Z86.12 Personal history of poliomyelitis; Z95.0 Presence of cardiac pacemaker; Z79.84 Long term (current) use of oral hypoglycemic drugs; Z86.73 Personal history of transient ischemic attack (TIA), and cerebral infarction without residual deficits; Z98.41 Cataract extraction status, right eye; Z98.42 Cataract extraction status, left eye; Z96.1 Presence of intraocular lens; Z90.49 Acquired absence of other specified parts of digestive tract
CPT/HCPCS: 36415; 70450; 71045; 80048; 80053; 80074; 80307; 81001; 82140; 82306; 82607; 82746; 82948; 83036; 83735; 84145; 84443; 85025; 85027; 86592; 86703; 87040; 87086; 87088; 87635; 92523; 96372; 97161; 97165; 99285; A9270; C9113; G0378; G0432; J0360; J1200; J1630; J1650; J1815; J2060; J2359; J3480; J7030; J7070; J7120

== ENCOUNTER 2023-11-10 13:01 | HOS | payer OTHER, MEDICARE, SELFPAY ==
--- NOTE | 2023-11-10 16:49 | HP_ITS ---
This report was moved to the correct visit on 11/14/2023. The original report was signed by on 11/10/23 1706 H&P: HPI History of Present Illness Date/Time: 11/10/23 16:48 Chief Complaint: Uncontrolled agitation Narrative: 78-year-old female was at home with her who was her primary caregiver due to her dementia. She became increasingly paranoid and combative at home. She had delusional thoughts about him trying to kill her and beating her. She refused to eat or drink. She was brought [facility] with delirium and confusion and found to be COVID positive and also had hypernatremia. She was treated with IV fluids and did not require oxygen therapy. Psychiatric strategic solutions consultant felt she had end-stage dementia with terminal prognosis. Neurology was consulted as well and concurred. opted for inpatient hospice for control of her agitation and psychosis. Review of Systems Review of Systems: ROS unobtainable: Yes unobtainable due to medical condition PMFSH Past Medical History Medical History Carotid stenosis, bilateral Cerebrovascular disease, unspecified Gastroesophageal reflux disease Hyperlipidemia Hypertension Irritable bowel syndrome Lung nodule Nontoxic multinodular goiter Osteoarthritis Osteoporosis Polio Type 2 diabetes mellitus Surgical History Surgical History History of permanent cardiac pacemaker placement (10/2020) Family History Family History Mother Hypertension Family history of diabetes mellitus in first degree relative Family history of chronic obstructive pulmonary disease Patient's mother is Diabetes mellitus Sibling Hypertension Diabetes mellitus Father Family history of malignant neoplasm Family history of coronary artery disease Social History Social History (Updated 11/10/23 @ 16:49 by Ludin Falcon MD) Social History: Code Status: DNR Smoking status: Never smoker Second hand tobacco smoke exposure: No Alcohol intake: never Substance use: never Substance use type: does not use Do You Feel Safe in your Home?: Yes Lack of Transportation: No Lack of Food: Never True Current Housing: I Have Housing Concerned About Future Housing: No Difficulty Paying Gas/Electric Bills: No Difficulty Paying for Meds: No Currently Unemployed: No Education: Associate Degree Difficulty w/ Childcare or Family Care: No Living arrangements: with family Spiritual care concerns: No Meds Home Medications and Allergies Home Medications Medication Instructions Recorded Confirmed Type calcium carbonate 600 mg calcium 1,200 mg PO BID 11/27/22 11/02/23 History (1,500 mg) tablet (Calcium) cyclosporine 0.05 % eye drops 1 drp EACH EYE BID 11/27/22 11/02/23 History (Restasis MultiDose) esomeprazole magnesium 40 mg 40 mg PO DAILY #180 caps 03/13/23 11/02/23 Rx capsule,delayed release (Nexium) diabetic supplies, miscellan. #1 ea 06/25/23 11/02/23 Rx blood sugar diagnostic (Contour #100 ea 06/28/23 11/02/23 Rx Next Test Strips) blood-glucose meter #1 ea 06/28/23 11/02/23 Rx lancets (Microlet Lancet) #100 ea 06/28/23 11/02/23 Rx cyclobenzaprine 10 mg tablet 10 mg PO TID PRN muscle spasm #30 08/10/23 11/02/23 Rx tabs buspirone 7.5 mg tablet 7.5 mg PO BID #60 tabs 09/27/23 11/02/23 Rx metformin 500 mg tablet 1,000 mg PO BID #180 tabs 09/27/23 11/02/23 Rx ondansetron 4 mg disintegrating 4 mg PO Q8H PRN nausea and 10/04/23
--- NOTE | 2023-11-10 16:49 | HP_ITS ---
This report was moved to the correct visit on 11/14/2023. The original report was signed by Ludin Falcon MD on 11/10/23 [id number]. H&P: HPI History of Present Illness Date/Time: 11/10/23 16:48 Chief Complaint: Uncontrolled agitation Narrative: 78-year-old female was at home with her who was her primary caregiver due to her dementia. She became increasingly paranoid and combative at home. She had delusional thoughts about him trying to kill her and beating her. She refused to eat or drink. She was brought [facility] with delirium and confusion and found to be COVID positive and also had hypernatremia. She was treated with IV fluids and did not require oxygen therapy. Psychiatric medical device sales consultant felt she had end-stage dementia with terminal prognosis. Neurology was consulted as well and concurred. opted for inpatient hospice for control of her agitation and psychosis. Review of Systems Review of Systems: ROS unobtainable: Yes unobtainable due to medical condition PMFSH Past Medical History Medical History Carotid stenosis, bilateral Cerebrovascular disease, unspecified Gastroesophageal reflux disease Hyperlipidemia Hypertension Irritable bowel syndrome Lung nodule Nontoxic multinodular goiter Osteoarthritis Osteoporosis Polio Type 2 diabetes mellitus Surgical History Surgical History History of permanent cardiac pacemaker placement (10/2020) Family History Family History Mother Hypertension Family history of diabetes mellitus in first degree relative Family history of chronic obstructive pulmonary disease Patient's mother is Diabetes mellitus Sibling Hypertension Diabetes mellitus Father Family history of malignant neoplasm Family history of coronary artery disease Social History Social History (Updated 11/10/23 @ 16:49 by Ludin Falcon MD) Social History: Code Status: DNR Smoking status: Never smoker Second hand tobacco smoke exposure: No Alcohol intake: never Substance use: never Substance use type: does not use Do You Feel Safe in your Home?: Yes Lack of Transportation: No Lack of Food: Never True Current Housing: I Have Housing Concerned About Future Housing: No Difficulty Paying Gas/Electric Bills: No Difficulty Paying for Meds: No Currently Unemployed: No Education: Associate Degree Difficulty w/ Childcare or Family Care: No Living arrangements: with family Spiritual care concerns: No Meds Home Medications and Allergies Home Medications Medication Instructions Recorded Confirmed Type calcium carbonate 600 mg calcium 1,200 mg PO BID 11/27/22 11/02/23 History (1,500 mg) tablet (Calcium) cyclosporine 0.05 % eye drops 1 drp EACH EYE BID 11/27/22 11/02/23 History (Restasis MultiDose) esomeprazole magnesium 40 mg 40 mg PO DAILY #180 caps 03/13/23 11/02/23 Rx capsule,delayed release (Nexium) diabetic supplies, miscellan. #1 ea 06/25/23 11/02/23 Rx blood sugar diagnostic (Contour #100 ea 06/28/23 11/02/23 Rx Next Test Strips) blood-glucose meter #1 ea 06/28/23 11/02/23 Rx lancets (Microlet Lancet) #100 ea 06/28/23 11/02/23 Rx cyclobenzaprine 10 mg tablet 10 mg PO TID PRN muscle spasm #30 08/10/23 11/02/23 Rx tabs buspirone 7.5 mg tablet 7.5 mg PO BID #60 tabs 09/27/23 11/02/23 Rx metformin 500 mg tablet 1,000 mg PO BID #180 tabs 09/27/23 11/02/23 Rx ondansetron 4 mg disintegrating 4 mg PO Q8H PRN thomas
[2023-11-10] MEDS: MORPHINE SULFATE INJ (*CRX) 50 MG in SODIUM CHLORIDE 0.9% IV 95 ML IV CONT (18:45)
[2023-11-10] MEDS: MORPHINE SULFATE (*CRX) 2 MG/ML INJ IV PUSH (18:46)
[2023-11-10] MEDS: LORazepam INJ (*CRX) 2 MG/ML VIAL 1 MG IV PUSH (18:47)
[2023-11-11 06:40] VITALS: BP 108/34; PULSE 100; RESP 24; TEMP 37.9; O2SAT 89
[2023-11-11] MEDS: LORazepam INJ (*CRX) 2 MG/ML VIAL 1 MG IV PUSH ×2 (08:24→13:41)
[2023-11-11] MEDS: GLYCOPYRROLATE INJ (*SP) 0.2 MG/ML VIAL 0.1 MG IV PUSH ×2 (08:24→13:42)
[2023-11-11] MEDS: MORPHINE SULFATE (*CRX) 2 MG/ML INJ IV PUSH (13:42)
[2023-11-11] MEDS: MORPHINE SULFATE INJ (*CRX) 50 MG in SODIUM CHLORIDE 0.9% IV 95 ML IV CONT (17:32)
[2023-11-11 17:40] VITALS: BP 94/66; PULSE 105; RESP 23; TEMP 38.5; O2SAT 83
--- NOTE | 2023-11-11 20:30 | PC.NURSE ---
patient informed charge nurse.
--- NOTE | 2023-11-11 21:01 | PC.NURSE ---
post mortem care completed, awaiting families arrival
--- NOTE | 2023-11-11 23:15 | PC.NURSE ---
family and [place] RN seen patient, patient in [facility] now. Informed hemodialysis charge nurse Kelly
--- NOTE | 2023-11-12 17:35 | P.DN_ITS ---
Discharge Summary Date and Time Date of : 11/11/23 Time of : 20:29 Provider Pronounced By: Porfirio Cervantes RN Probable Cause of Probable Cause of : End-stage dementia due to unspecified etiology with behavioral disturbance and psychosis Summary Hospital Course: Admitted to inpatient hospice service for symptom management. Medications titrated to comfort. Mrs. Mc peacefully. Additional Data Confirmation of as documented by pronouncing clinician: Pupillary Reflex, Palpable Pulses, Response to Stimuli, Heart Tones and Breath Sounds Name of Provider Notified: Ezekiel Time Provider Notified: 20:34 Business Continuity Management Director Notified: Yes Date [facility] Notified of : 11/11/23 Time [facility] Notified of : 20:53
--- NOTE | 2023-12-10 13:03 | PM.DS ---
DS: Admitting Diagnosis Discharge Date 11/11/23 Admitting Diagnosis (1) Delirium due to another medical condition: ?Code(s): F05 - Delirium due to known physiological condition ?Status:?Acute ?Assessment and Plan: Stable, continue current treatment (2) Dementia with psychosis: ?Code(s): F03.92 - Unspecified dementia, unspecified severity, with psychotic disturbance ?Status:?Acute ?Assessment and Plan: Stable, continue current treatment (3) Hypertension: ?Code(s): I10 - Essential (primary) hypertension ?Status:?Acute ?Assessment and Plan: Stable, continue current treatment (4) Type 2 diabetes mellitus: ?Code(s): E11.9 - Type 2 diabetes mellitus without complications ?Status:?Acute ?Assessment and Plan: Stable, continue current treatment (5) COVID: ?Code(s): U07.1 - COVID-19 ?Status:?Acute ?Assessment and Plan: Stable, continue current treatment (6) Hypernatremia: ?Code(s): E87.0 - Hyperosmolality and hypernatremia ?Status:?Acute DS: Discharge Diagnosis Discharge Diagnosis Plan (1) Delirium due to another medical condition: ?Code(s): F05 - Delirium due to known physiological condition ?Status:?Acute ?Assessment and Plan: Stable, continue current treatment (2) Dementia with psychosis: ?Code(s): F03.92 - Unspecified dementia, unspecified severity, with psychotic disturbance ?Status:?Acute ?Assessment and Plan: Stable, continue current treatment (3) Hypertension: ?Code(s): I10 - Essential (primary) hypertension ?Status:?Acute ?Assessment and Plan: Stable, continue current treatment (4) Type 2 diabetes mellitus: ?Code(s): E11.9 - Type 2 diabetes mellitus without complications ?Status:?Acute ?Assessment and Plan: Stable, continue current treatment (5) COVID: ?Code(s): U07.1 - COVID-19 ?Status:?Acute ?Assessment and Plan: Stable, continue current treatment (6) Hypernatremia: ?Code(s): E87.0 - Hyperosmolality and hypernatremia ?Status:?Acute DS: Summary Hospital Course Reason for hospitalization: Uneventful Hospital Course: After discussion with the family. Patient was transferred to hospice care Time Spent with Patient Time attestation: Total time spent providing and/or coordinating discharge services: Discharge Plan Discharge Attending physician on discharge: Max Garza Discharging Clinician: Max Garza Patient Disposition: Activity: as tolerated Diet: as tolerated Discharge Medications: Discontinued calcium carbonate [Calcium 600] 600 mg calcium (1,500 mg) tablet 1,200 mg PO BID Restasis MultiDose 0.05 % drops 1 drp EACH EYE BID ondansetron 4 mg tablet,disintegrating 4 mg PO Q8H PRN (Reason: nausea and vomiting) Qty: 10 0RF (DME) diabetic supplies, [employer]. [facility] See Rx Instructions .Route Qty: 1 0RF Rx Instructions: As directed cyclobenzaprine 10 mg tablet 10 mg PO TID PRN (Reason: muscle spasm) Qty: 30 0RF pantoprazole 20 mg tablet,delayed release (DR/EC) 20 mg PO HS 28 Days Qty: 28 0RF Rx Instructions: One tablet QHS for four weeks beginning 12/ amlodipine 10 mg tablet 10 mg PO DAILY losartan 100 mg tablet 100 mg PO DAILY tramadol 50 mg tablet 50 mg PO .COMPLEX PRN (Reason: Pain (Scale Score 4-6)) Rx Instructions: 50 mg PO One po in AM and 1/2 in PM PRN; esomeprazole magnesium [Nexium] 40 mg capsule,delayed release(DR/EC) 40 mg PO DAILY Qty: 180 1RF (DME) blood-glucose meter [facility] See Rx Instructions .Route Qty: 1 0RF Rx Instructions: As directed (DME) Contour Next Test Strips Strip See Rx Instructions .Route Qty: 100 1RF Rx Instructions: Use to check blood sugar twice a day (DME) lancets [Microlet Lancet] [facility] See Rx Instructions .Route Qty: 100 1RF Rx Instruct
== END 2023-11-11 20:29 | disposition expired | DRG 951 ==
PROVIDERS: Admitting Provider Internal Medicine; PCP Family Medicine; Visit Provider Family Medicine
DX: Z51.5 Encounter for palliative care (principal); U07.1 COVID-19; F03.92 Unspecified dementia, unspecified severity, with psychotic disturbance; F03.918 Unspecified dementia, unspecified severity, with other behavioral disturbance; F05 Delirium due to known physiological condition; E87.0 Hyperosmolality and hypernatremia; E11.9 Type 2 diabetes mellitus without complications; I10 Essential (primary) hypertension; Z66 Do not resuscitate; M19.90 Unspecified osteoarthritis, unspecified site; M81.0 Age-related osteoporosis without current pathological fracture; K58.9 Irritable bowel syndrome, unspecified; R91.1 Solitary pulmonary nodule; K21.9 Gastro-esophageal reflux disease without esophagitis; E78.5 Hyperlipidemia, unspecified; I65.23 Occlusion and stenosis of bilateral carotid arteries; E04.2 Nontoxic multinodular goiter; Z95.0 Presence of cardiac pacemaker; Z86.12 Personal history of poliomyelitis
CPT/HCPCS: A9270; J2060; J2270